=== PATIENT | male | born 1960 | race Caucasian/White ===

== ENCOUNTER 2016-09-19 12:07 | Emergency (ER) | payer OTHER ==
[2016-09-19 12:44] VITALS: BP 138/98; PULSE 88; TEMP 98; BMI 29.0
[2016-09-19] MEDS ORDERED: IBUPROFEN 600 MG TABLET (FP) PO ONE (13:44)
--- NOTE | 2016-09-19 14:58 | PDOC ---
History of Present Illness - General Chief Complaint: Injury Stated Complaint: FALL/ DIZZINESS Time Seen by Provider: 09/19/16 13:14 History Source: Patient Exam Limitations: No Limitations - History of Present Illness Initial Comments: 09/19/16 14:56 Patient was [place] when he stumbled and fell backwards striking his right flank on the door jam. Patient states since that time is had severe pain to his chest wall with pain on deep inspiration. No head injury, no other injury. Occurred: reports: this morning Severity: reports: moderate Pain Location: reports: chest Method of Injury: Yes: fall Loss of Consciousness: no loss of consciousness Associated Symptoms (Fall): denies symptoms Past History - Travel Traveled outside of the country in the last 30 days: No Close contact w/someone who was outside of country & ill: No - Past Medical History Allergies/Adverse Reactions: Allergies Allergy/AdvReac Type Severity Reaction Status Date / Time aspirin Allergy Verified 09/19/16 12:31 egg Allergy Verified 09/19/16 12:31 tomato Allergy Verified 09/19/16 12:31 Home Medications: Ambulatory Orders Oxycodone HCl/Acetaminophen [Percocet 5-325 mg Tablet -] 1 - 2 tab PO Q4H PRN # 15 tablet MDD 4 09/19/16 Other medical history: VISION PROBLEMS - Psycho/Social/Smoking Cessation Hx Anxiety: No Suicidal Ideation: No Smoking History: Never smoked Have you smoked in the past 12 months: No Information on smoking cessation initiated: No Hx Alcohol Use: No Drug/Substance Use Hx: No Substance Use Type: None Review of Systems - Review of Systems Able to Perform ROS?: Yes Is the patient limited Bengali proficient: Yes Constitutional: Yes: See HPI. No: Symptoms Reported, Fever HEENTM: Yes: See HPI. No: Symptoms Reported Respiratory: Yes: Symptoms reported, See HPI, Other (pleuritic type chest pain secondary to contusion and pain to his right chest wall, no shortness of breath) . No: Cough Musculoskeletal: Yes: Symptoms Reported, See HPI, Back Pain Integumentary: Yes: See HPI. No: Symptoms Reported All Other Systems: Reviewed and Negative *Physical Exam - Vital Signs Last Vital Signs Temp Pulse Resp BP Pulse Ox 98.0 F 88 18 138/98 100 09/19/16 12:33 09/19/16 12:33 09/19/16 12:33 09/19/16 12:33 09/19/16 12:33 - Physical Exam General Appearance: Yes: Nourished, Appropriately Dressed, Mild Distress, Moderate Distress HEENT: positive: CASH, Normal ENT Inspection, TMs Normal, Pharynx Normal Neck: positive: Supple Respiratory/Chest: positive: Lungs Clear (pain with deep inspiration, and reproduced tenderness along chest wall at mid clavicular line proximally midpoint ribs 789. Has no abdominal pain, no rebound or guarding to right upper quadrant), Normal Breath Sounds Musculoskeletal: positive: Normal Inspection. 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 Will treat with NSAIDs, given 15 Percocet prescription, and will have follow-up with PMD *DC/Admit/Observation/Transfer Diagnosis at time of Disposition: Fracture, rib Qualifiers: Encounter type: initial encounter Rib fracture type: single rib Fracture type: closed Laterality: right Qualified Code(s): S22.31XA - Fracture of one rib, right side, initial encounter for closed fracture - Discharge Dispostion Disposition: HOME Condition at time of disposition: Stable Admit: No - Patient Instructions Printed Discharge Instructions: DI for Rib Fracture Additional Instructions: Rest, avoid any heavy lifting or strenuous activity until pain resolves. May choose to sit upright for pain control Remembering to take deep breaths as often as possible to avoid any atelectasis and lungs from immobility May use ibuprofen 2 tablets every 6 hours as needed for pain control May use Percocet one or 2 tablets every 6 hours as needed for severe pain remembering will make dizzy and sleepy Follow-up with PMD in one week for reevaluation - Post Discharge Activity Work/School Note: Back to Work
== END 2016-09-19 15:38 | disposition home or self-care (01) ==
LOC: JERFT 12:07
DX: S22.31XA Fracture of one rib, right side, initial encounter for closed fracture (principal); W18.39XA Other fall on same level, initial encounter; Y93.89 Activity, other specified; Y92.240 Courthouse as the place of occurrence of the external cause
CPT/HCPCS: 71020-TC; 71101-TC-RT; 99281-25

== ENCOUNTER 2016-10-26 12:05 | Emergency (ER) | payer OTHER ==
[2016-10-26 12:19] VITALS: TEMP 97.7; BMI 28.1
[2016-10-26 15:07] LABS: BASOPHIL 0.6 % (0-2.0); EOSINOPHIL 3.5 % (0-4.5); MCH 31.2 pg (25.7-33.7); MCHC 34.7 g/dl (32.0-35.9); MEAN CELL VOLUME 89.8 fl (80-96); MEAN PLT VOLUME 8.4 fl (7.5-11.1); NEUTROPHILS 58.5 % (42.8-82.8); PLATELET COUNT 188 K/MM3 (134-434); RDW 11.9 % (11.9-15.9); WHITE BLOOD COUNT 5.3 K/mm3 (4.0-10.0)
[2016-10-26 15:28] LABS: ALBUMIN 3.5 g/dl (3.4-5.0); ALK PHOS 58 U/L (45-117); ANION GAP 10 (8-16); BILIRUBIN,TOTAL 0.6 mg/dL (0.2-1.0); CALCIUM 8.4 mg/dL (8.5-10.1); CO2 26 mmol/L (21-32); GLUCOSE,RANDOM 272 mg/dL (74-106); MAGNESIUM 2.2 mg/dL (1.8-2.4); SGOT/AST 14 U/L (15-37); SGPT/ALT 23 U/L (12-78); TOT PROT 6.5 g/dl (6.4-8.2)
--- NOTE | 2016-10-26 15:28 | PDOC ---
History of Present Illness - General Chief Complaint: Lightheaded Stated Complaint: SICK Time Seen by Provider: 10/26/16 12:42 History Source: Patient Exam Limitations: No Limitations - History of Present Illness Initial Comments: 10/26/16 15:46 55-year-old male who states has been having generalized weakness, increased insomnia, and intermittent headaches for the past few months without change in mentation, dizziness, visual changes, neck pain, chest pain, shortness of breath , abdominal pain, nausea, dysuria, or bowel complaints. She states has been seen in the past secondary to the above and had normal head CT. Patient states does not have a PCP and just recently received insurance. Patient denies medical history including anemia, but states has been mild short of breath with exertion and is generally weak without fever, chills hematochezia, hematuria or weight loss. Timing/Duration: constant Severity: mild Associated Symptoms: reports: headaches, weakness Past History - Past Medical History Allergies/Adverse Reactions: Allergies Allergy/AdvReac Type Severity Reaction Status Date / Time aspirin Allergy Verified 10/26/16 12:17 egg Allergy Verified 10/26/16 12:17 tomato Allergy Verified 10/26/16 12:17 Home Medications: Ambulatory Orders Oxycodone HCl/Acetaminophen [Percocet 5-325 mg Tablet -] 1 - 2 tab PO Q4H PRN # 15 tablet MDD 4 09/19/16 - Psycho/Social/Smoking Cessation Hx Anxiety: No Suicidal Ideation: No Smoking History: Never smoked Have you smoked in the past 12 months: No Information on smoking cessation initiated: No Hx Alcohol Use: No Drug/Substance Use Hx: No Substance Use Type: None Patient Lives Alone: No Lives with/in: spouse/SO Review of Systems - Review of Systems Able to Perform ROS?: Yes Constitutional: Yes: Weakness HEENTM: No: Symptoms Reported Respiratory: No: Symptoms reported Cardiac (ROS): Yes: Lightheadedness ABD/GI: No: Constipated, Diarrhea, Nausea, Poor Appetite, Poor Fluid Intake, Vomiting : No: Symptoms Reported Musculoskeletal: No: Symptoms Reported Integumentary: No: Symptoms Reported Neurological: Yes: Headache (mild occipital) Endocrine: No: Symptoms Reported Hematologic/Lymphatic: No: Symptoms Reported *Physical Exam - Vital Signs Last Vital Signs Temp Pulse Resp BP Pulse Ox 97.7 F 74 16 158/95 98 10/26/16 12:17 10/26/16 12:17 10/26/16 13:15 10/26/16 12:17 10/26/16 13:15 - Physical Exam General Appearance: Yes: Nourished, Appropriately Dressed. No: Apparent Distress HEENT: positive: EOMI, CASH, TMs Normal, Pharynx Normal (dry), Pale Conjunctivae Neck: positive: Normal Thyroid, Supple Respiratory/Chest: positive: Lungs Clear, Normal Breath Sounds. negative: Respiratory Distress, Accessory Muscle Use Cardiovascular: positive: Regular Rhythm, Regular Rate. negative: Murmur Gastrointestinal/Abdominal: positive: Soft. negative: Tenderness Musculoskeletal: negative: CVA Tenderness Extremity: positive: Normal Capillary Refill. negative: Pedal Edema Integumentary: positive: Dry, Warm, Pale Neurologic: positive: Normal Mood/Affect, Motor Strength 5/5 ( ambulatory) Heart Score/ECG Review - ECG Intrepretation Rhythm: Regular Rhythm (rate 69. Intervals are regular. No acute findings) ED Treatment Course - LABORATORY CBC & Chemistry Diagram: 10/26/16 14:27 10/26/16 14:53 - ADDITIONAL ORDERS Additional order review: 10/26/16 14:27 RBC 4.64 MCV 89.8 MCHC 34.7 RDW 11.9 MPV 8.4 Neutrophils % 58.5 Lymphocytes % 27.9 Monocytes % 9.5 Eosinophils % 3.5 Basophils % 0.6 - RADIOLOGY Radiology Studies Ordered: Category Date Time Status HEAD CT WITHOUT CONTRAST [CT] Stat CT Scan 10/26/16 14:25 Taken CHEST X-RAY PORTABLE* [RAD] Stat Radiology 10/26/16 14:25 Completed Medical Decision Making - Medical Decision Making 10/26/16 14:51 Patient with complaints of weakness, headache, and insomnia. Patient does state recent stressor of deaths in the family one month ago which she feels may have attributed to his symptoms. Patient does appear pale an exam concerning for anemia. Patient ordered for labs, head CT, urine, chest x-ray and EKG. 10/26/16 15:53 Laboratory Tests 10/26/16 10/26/16 14:27 14:53 WBC 5.3 Hgb 14.5 Hct 41.6 Plt Count 188 Sodium 138 Potassium 4.1 Chloride 102 Carbon Dioxide 26 Anion Gap 10 BUN 16 Creatinine 1.0 Random Glucose 272 H Calcium 8.4 L Magnesium 2.2 AST 14 L Troponin I < 0.02 urine pending. Chest x-ray negative. head CT negative 10/26/16 16:49 Laboratory Tests 10/26/16 16:20 Urine Protein 1+ H Urine Glucose (UA) 3+ H Urine Blood 2+ H Ur Leukocyte Esterase Negative patientstates feeling better after eating and will be discharged home to follow up with his primary care physician *DC/Admit/Observation/Transfer Diagnosis at time of Disposition: Weakness Insomnia Qualifiers: Insomnia type: unspecified Qualified Code(s): G47.00 - Insomnia, unspecified - Discharge Dispostion Disposition: HOME Condition at time of disposition: Good - Referrals Referrals: Kenyon Ramirez MD [Primary Care Provider] - - Patient Instructions Printed Discharge Instructions: DI for Muscle Weakness, DI for Insomnia Additional Instructions: Your labs, EKG, chest x-ray, head CT and urine were all negative. Please up with your PCP and eat well-balanced meals throughout the day.
[2016-10-26 15:30] LABS: TROPONIN I < 0.02 ng/ml (0.00-0.05)
--- NOTE | 2016-10-26 15:37 | EKG ---
Test Reason : Blood Pressure : / mmHG Vent. Rate : 069 BPM Atrial Rate : 069 BPM P-R Int : 144 ms QRS Dur : 076 ms QT Int : 364 ms P-R-T Axes : 017 -16 036 degrees QTc Int : 390 ms POOR DATA QUALITY, INTERPRETATION MAY BE ADVERSELY AFFECTED NORMAL SINUS RHYTHM POSSIBLE ANTERIOR INFARCT , AGE UNDETERMINED ABNORMAL ECG WHEN COMPARED WITH ECG OF 17-SEP-2008 13:08, NO SIGNIFICANT CHANGE WAS FOUND Confirmed by KALEB SPRING MD ([id number]) on 10/26/2016 3:37:05 PM Referred By: Confirmed By:KALEB SPRING MD
[2016-10-26 16:34] LABS: URINE APPEARANCE CLEAR; URINE BILIRUBIN NEGATIVE (NEGATIVE); URINE COLOR LTYELLOW; URINE GLUCOSE (UA) 3+ (NEGATIVE); URINE KETONE NEGATIVE (NEGATIVE); URINE LEUK ESTERASE NEGATIVE (NEGATIVE); URINE NITRITE NEGATIVE (NEGATIVE); URINE UROBILINOGEN NEGATIVE E.U./dl (0.2-1.0)
[2016-10-26 16:40] LABS: URINE BLOOD 2+ (NEGATIVE); URINE PROTEIN 1+ (NEGATIVE)
[2016-10-26 17:07] VITALS: BP 148/90; PULSE 84
[2016-10-26 17:14] LABS: URINE RBC <1 /hpf (0-3); URINE WBC <1 /hpf (3-5)
== END 2016-10-26 17:02 | disposition home or self-care (01) ==
LOC: JER 12:05
DX: R53.1 Weakness (principal); G47.00 Insomnia, unspecified
CPT/HCPCS: 36415; 70450-TC; 71010-TC; 80053; 81003; 81015; 82550; 83735; 84484; 85025; 93005; 93010; 99284-25

== ENCOUNTER 2016-11-15 05:57 | Day surgery (SDC) | payer OTHER ==
[2016-11-09 16:32] VITALS: BMI 27.2
[2016-11-15] MEDS: CYCLOPENTOLATE 2% OPHTH SOLN 2 ML BOTTLE ONE ×3 (06:55→07:05)
[2016-11-15] MEDS: PHENYLEPHRINE 2.5% OPHTH SOLN 15 ML BOTTLE ONE ×3 (06:55→07:05)
[2016-11-15] MEDS: TROPICAMIDE 1% OPHTH SOLN 15 ML BOTTLE ONE ×4 (06:55→07:10)
[2016-11-15] MEDS: CIPROFLOXACIN 0.3% EYE DROPS 5 ML BOTTLE ONE ×3 (06:55→07:05)
[2016-11-15 07:07] VITALS: TEMP 98.8
[2016-11-15] MEDS ORDERED: MIDAZOLAM HCL 2 MG/2 ML SINGLE DOSE VIAL ONE (07:12)
[2016-11-15] MEDS ORDERED: SUCCINYLCHOLINE CHLORIDE 200 MG/10 ML VIAL ONE (07:12)
[2016-11-15] MEDS ORDERED: ePHEDrine SULFATE 50 MG/1 ML AMPULE ONE (07:12)
[2016-11-15] MEDS ORDERED: PROPOFOL 20 ML ONE (07:13)
[2016-11-15] MEDS ORDERED: TETRACAINE 0.5% OPHTH SOLN 2 ML BOTTLE ONE (07:30)
[2016-11-15] MEDS ORDERED: LIDOCAINE 1% P/F 10 MG/ML VIAL ONE (07:30)
[2016-11-15] MEDS ORDERED: CARBACHOL 0.01% INTRA-OCULAR 1.5 ML VIAL ONE (07:31)
[2016-11-15] MEDS ORDERED: BSS (NA/CA/MG/K) BALANCED SALT SOLUTION OPHTH SOLN 15 ML BOTTLE ONE (07:31)
[2016-11-15] MEDS ORDERED: LIDOCAINE HCL 2% JELLY 10 ML CARTRIDGE ONE (07:31)
[2016-11-15 09:54] VITALS: BP 144/77; PULSE 78
--- NOTE | 2016-11-15 19:56 | OP ---
DATE OF PROCEDURE: 11/15/2016 OPERATIVE PROCEDURE: Lens Phacoemulsification with Posterior Chamber Intraocular Lens Placement Left Eye PREOPERATIVE DIAGNOSIS: Visually Significant Cataract of Left Eye POSTOPERATIVE DIAGNOSIS: Visually Significant Cataract of Left Eye SURGEON: Miguel Berry M.D. [place] [facility] [place]: PROCEDURE: The patient was brought to the operating room and placed under monitored anesthesia care by Anesthesia. A drop of Tetracaine was then placed over the left eye. The patient was then prepped and draped in the usual sterile manner. A speculum was then placed over the left eye. The eye was then well irrigated with copious amounts of BSS (balanced salt solution). The operating microscope was then moved into position. A paracentesis was performed using a 15 degree blade. At this point 0.5 mL of 1% preservative-free lidocaine was injected into the anterior chamber. Amvisc plus was then injected into the anterior chamber. A clear corneal incision was then formed using a 2.2 mm keratome. A capsulorrhexis was then performed in a continuous circular fashion beginning with a cystotome, completed with an Utratas forceps. Hydrodissection was then performed using BSS on a cannula. The phaco probe was then introduced through the corneal wound and the cataract was removed using the phaco chop technique. Approximately 3 seconds of absolute phaco time was used. The remaining cortex was then removed using irrigation and aspiration with an I/A probe. The capsule was then filled with regular Amvisc and the capsule was noted to be intact. A previously selected foldable posterior chamber intraocular lens was then injected into the capsule through the corneal wound using a lens injector. It was then dialed into position using a Sinskey hook. The Amvisc was then removed using irrigation and aspiration. Miostat was then injected through the paracentesis to constrict the pupil. The paracentesis and corneal wound were then hydrated and noted to be water tight. A drop of Maxitrol was then placed over the eye. The speculum was removed and clear shield was taped over the eye. The patient tolerated the procedure well and there were no surgical complications. The patient was asked to follow up in my office the next day. MIGUEL BERRY M.D. [id number]
== END 2016-11-15 09:50 | disposition home or self-care (01) ==
LOC: FASU 05:57
PROVIDERS: ATTEND Ophthalmology
PROC: 08RK3JZ Replacement of Left Lens with Synthetic Substitute, Percutaneous Approach (ICD-10-PCS; principal; 2016-11-15 08:15)
DX: H26.8 Other specified cataract (principal)

== ENCOUNTER 2016-12-13 06:38 | Day surgery (SDC) | payer OTHER ==
[2016-12-11 11:40] VITALS: BMI 27.2
[2016-12-13] MEDS: CIPROFLOXACIN 0.3% EYE DROPS 5 ML BOTTLE ONE ×3 (07:20→07:30)
[2016-12-13] MEDS: PHENYLEPHRINE 2.5% OPHTH SOLN 15 ML BOTTLE ONE ×3 (07:20→07:30)
[2016-12-13] MEDS: TROPICAMIDE 1% OPHTH SOLN 15 ML BOTTLE ONE ×3 (07:20→07:30)
[2016-12-13] MEDS: CYCLOPENTOLATE 2% OPHTH SOLN 2 ML BOTTLE ONE ×3 (07:20→07:30)
[2016-12-13] MEDS ORDERED: BSS (NA/CA/MG/K) BALANCED SALT SOLUTION OPHTH SOLN 15 ML BOTTLE ONE (07:30)
[2016-12-13] MEDS ORDERED: CARBACHOL 0.01% INTRA-OCULAR 1.5 ML VIAL ONE (07:30)
[2016-12-13] MEDS ORDERED: NEO/POLYMYX B SULF/DEXAMETH OPHTHALMIC 5ML BOTTLE ONE (07:30)
[2016-12-13] MEDS ORDERED: ACETAMINOPHEN 325 MG TABLET (FP) PO PRN (08:51)
[2016-12-13] MEDS ORDERED: MIDAZOLAM HCL 2 MG/2 ML SINGLE DOSE VIAL ONE (09:03)
[2016-12-13] MEDS ORDERED: oxyCODONE HCL 5 MG TABLET PO PRN (09:21)
[2016-12-13] MEDS ORDERED: ACETAMINOPHEN 325 MG TABLET (FP) ONE (09:41)
[2016-12-13 10:22] VITALS: TEMP 98.9
[2016-12-13 10:27] VITALS: BP 131/86; PULSE 78
--- NOTE | 2016-12-13 14:31 | OP ---
DATE OF OPERATION: 12/13/2016 OPERATIVE PROCEDURE: Lens Phacoemulsification with Posterior Chamber Intraocular Lens Placement, Right Eye PREOPERATIVE DIAGNOSIS: Visually Significant Cataract of Right Eye POSTOPERATIVE DIAGNOSIS: Visually Significant Cataract of Right Eye SURGEON: Miguel Berry M.D. ANESTHESIA: [facility] ANESTHESIOLOGIST: PROCEDURE: The patient was brought to the operating room and placed under monitored anesthesia care by Anesthesia. A drop of Tetracaine was then placed over the right eye. The patient was then prepped and draped in the usual sterile manner. A speculum was then placed over the right eye. The eye was then well irrigated with copious amounts of BSS (balanced salt solution). The operating microscope was then moved into position. A paracentesis was performed using a 15 degree blade. At this point 0.5 mL of 1% preservative free-lidocaine was injected into the anterior chamber. Amvisc plus was then injected into the anterior chamber. A clear corneal incision was then formed using a 2.2 mm keratome. A capsulorrhexis was then performed in a continuous circular fashion beginning with a cystotome completed with an Utratas forceps. Hydrodissection was then performed using BSS on a cannula. The phaco probe was then introduced through the corneal wound and the cataract was removed using the phaco chop technique. Approximately 3 seconds of absolute phaco time was used. The remaining cortex was then removed using irrigation and aspiration with an I/A probe. The capsule was then filled with regular Amvisc and the capsule was noted to be intact. A previously selected foldable posterior chamber intraocular lens was then injected into the capsule through the corneal wound using a lens injector. It was then dialed into position using a Sinskey hook. The Amvisc was then removed using irrigation and aspiration. Miostat was then injected through the paracentesis to constrict the pupil. The paracentesis and corneal wound were then hydrated and noted to be water tight. A drop of Maxitrol was then placed over the eye. The speculum was removed and clear shield was taped over the eye. The patient tolerated the procedure well and there were no surgical complications. The patient was asked to follow up in my office the next day. MIGUEL BERRY M.D. [id number]
== END 2016-12-13 10:20 | disposition home or self-care (01) ==
LOC: FASU 06:38
PROVIDERS: ATTEND Ophthalmology
PROC: 08RJ3JZ Replacement of Right Lens with Synthetic Substitute, Percutaneous Approach (ICD-10-PCS; principal; 2016-12-13 09:07)
DX: H26.8 Other specified cataract (principal)

== ENCOUNTER 2017-02-10 15:26 | Emergency (ER) | payer OTHER ==
[2017-02-10 16:08] VITALS: BP 155/86; PULSE 84; TEMP 98.2; BMI 25.3
--- NOTE | 2017-02-10 16:20 | PDOC ---
History of Present Illness - General History Source: Patient Exam Limitations: No Limitations <Debbi Aguilar - Last Filed: 02/10/17 20:30> - General History Source: Patient Exam Limitations: No Limitations - History of Present Illness Initial Comments: 02/10/17 16:47 Patient is a 56 year old male with a significant past medical history of DM and hypertension who presents to the ED s/p fall. Patient states that he was shopping in [place] as he slipped on water and fell backwards. Patient states that he hit the back of his head on the ground, denies any LOC. Patient states that he was unable to get up so he remained on the ground. Patient reports back pain , 8/10, radiating from top of the back to the buttocks. Patient also reports nausea and dizziness but denies any numbness or tingling. Patient notes that he had eye surgery 3 years ago and is now concerned because he hit his head during the fall. He denies fever, headache, chills, vomiting, diarrhea or constipation. SH: denies alcohol, drug or cigarette use. PCP - Dr. Ramirez <Stella Srivastava - Last Filed: 02/10/17 20:31> - General Chief Complaint: Head/Neck problem Stated Complaint: S/P FALL Time Seen by Provider: 02/10/17 16:19 Past History - Past Medical History Anemia: No Asthma: No Cancer: No Cardiac Disorders: No CVA: No COPD: No CHF: No Dementia: No Diabetes: Yes (NEW DX-STARTED ON GLUCOPHAGE RECENTLY) GI Disorders: No Disorders: No HTN: Yes Hypercholesterolemia: No Liver Disease: No Seizures: No Thyroid Disease: No - Surgical History Abdominal Surgery: No Appendectomy: No Cardiac Surgery: No Cholecystectomy: No Lung Surgery: No Neurologic Surgery: No Orthopedic Surgery: No - Psycho/Social/Smoking Cessation Hx Anxiety: No Suicidal Ideation: No Smoking History: Unknown if ever smoked Have you smoked in the past 12 months: No Information on smoking cessation initiated: No Hx Alcohol Use: No Drug/Substance Use Hx: No Substance Use Type: None Hx Substance Use Treatment: No <Debbi Aguilar - Last Filed: 02/10/17 20:30> <Stella Srivastava - Last Filed: 02/10/17 20:31> - Past Medical History Allergies/Adverse Reactions: Allergies Allergy/AdvReac Type Severity Reaction Status Date / Time aspirin Allergy Severe Abdominal Verified 02/10/17 16:36 pain egg Allergy Severe Violently Verified 02/10/17 16:36 ill, vomiting tomato Allergy Severe Violently Verified 02/10/17 16:36 ill, vomiting Home Medications: Ambulatory Orders Latanoprost 0.005% Eye Drops [Xalatan 0.005% Eye Drops -] 1 drop HS 11/09/16 Metformin HCl 500 mg PO BID 11/09/16 Ramipril 2.5 mg PO DAILY 11/09/16 Cholecalciferol (Vitamin D3) [Vitamin D3] 2,000 unit PO 2 daily tablet Ibuprofen [Motrin -] 600 mg PO TID PRN #21 tablet 02/10/17 Lidocaine 5% Patch [Lidoderm Patch -] 1 patch TP DAILY PRN #30 patch 02/10/17 Methocarbamol [Robaxin -] 500 mg PO TID PRN #21 tablet 02/10/17 Review of Systems - Review of Systems Able to Perform ROS?: Yes Comments:: 02/10/17 16:48 GENERAL/CONSTITUTIONAL: No: fever, chills, weakness, loss of appetite. HEAD, EYES, EARS, NOSE AND THROAT: No: change in vision, ear pain, discharge, sore throat, throat swelling. CARDIOVASCULAR: No: chest pain, lightheadedness, palpitations, syncope RESPIRATORY: No: cough, shortness of breath, wheezing, hemoptysis, stridor. GASTROINTESTINAL: + nausea No: vomiting, abdominal cramping, diarrhea, rectal bleeding, constipation. GENITOURINARY: No: dysuria, hematuria, frequency, urgency, flank pain. MUSCULOSKELETAL: +back pain, neck pain. No: joint pain, muscle swelling or pain SKIN: No: lesions, pallor, rash or easy bruising. NEUROLOGIC: +dizziness. No: headache, vertigo, paresthesias, weakness ENDOCRINE: No: unexplained weight gain or loss HEMATOLOGIC/LYMPHATIC: No: anemia, easy bleeding, swelling nodes <Stella Srivastava - Last Filed: 02/10/17 20:31> *Physical Exam - Vital Signs Last Vital Signs Temp Pulse Resp BP Pulse Ox 98.2 F 84 20 155/86 100 02/10/17 15:41 02/10/17 15:41 02/10/17 15:41 02/10/17 15:41 02/10/17 15:41 <Debbi Aguilar - Last Filed: 02/10/17 20:30> - Vital Signs Last Vital Signs Temp Pulse Resp BP Pulse Ox 98.2 F 84 20 155/86 100 02/10/17 15:41 02/10/17 15:41 02/10/17 15:41 02/10/17 15:41 02/10/17 15:41 - Physical Exam Comments: 02/10/17 16:49 GENERAL: The patient is in no acute distress. HEAD: Normal with no signs of trauma. EYES: PERRLA, EOMI, sclera anicteric, conjunctiva clear. ENT: Ears normal, nares patent, oropharynx clear without exudates. Moist mucous membranes. NECK: Normal range of motion, supple without lymphadenopathy, JVD, or masses. LUNGS: Breath sounds equal, clear to auscultation bilaterally. No wheezes, and no crackles. HEART:Regular rate and rhythm, normal S1 and S2 without murmur, rub or gallop. ABDOMEN: Soft, nontender, normoactive bowel sounds. No guarding, no rebound. EXTREMITIES: Normal range of motion, no edema. No clubbing or cyanosis. No erythema, or tenderness. NEUROLOGICAL: (+) R paraspinal tenderness in C spine, no midline tenderness, (+ ) midline thoracic lumbar tenderness, no bruising or deformities, (+) motos strength 5/5 bilateral upper and lower extremities, (+)sensation intact throughout. Cranial nerves II through XII grossly intact. Normal speech. No focal neurological deficits. MUSCULOSKELETAL: no CVA tenderness SKIN: Warm, Dry, normal turgor, no rashes or lesions noted. <Stella Srivastava - Last Filed: 02/10/17 20:31> ED Treatment Course - RADIOLOGY Radiology Studies Ordered: 02/10/17 20:28 THIS IS A PRELIMINARY REPORT FROM [facility] EXAM: CT head without contrast FINDINGS: 1. There is no evidence of an acute intracranial process intracranial hemorrhage or mass effect. 2. The ventricles are normal size. 3. The visualized portions of the orbits, paranasal and mastoid sinuses are unremarkable. 4. No evidence of fracture. THIS DOCUMENT HAS BEEN ELECTRONICALLY SIGNED Berenice Jimenes MD 02/10/17 20:30 THIS IS A PRELIMINARY REPORT FROM [facility] FINDINGS: 1. No evidence of fracture or subluxation of the cervical spine. 2. Visualization of detail of the contents of the cervical canal is limited by artifact. THIS DOCUMENT HAS BEEN ELECTRONICALLY SIGNED Berenice Jimenes MD - Medications Given in the ED: ED Medications Discontinued Medications Generic Name Dose Route Start Last Admin Trade Name Lexa PRN Reason Stop Dose Admin Ibuprofen 600 mg 02/10/17 16:27 02/10/17 16:43 Motrin - PO 02/10/17 16:28 600 mg ONCE ONE Administration Methocarbamol 500 mg 02/10/17 16:27 02/10/17 16:44 Robaxin - PO 02/10/17 16:28 500 mg ONCE ONE Administration Oxycodone/Acetaminophen 1 combo 02/10/17 16:27 02/10/17 16:43 Percocet 5/325 - PO 02/10/17 16:28 1 combo ONCE ONE Administration <Stella Srivastava - Last Filed: 02/10/17 20:31> Medical Decision Making - Medical Decision Making 02/10/17 16:20 I, Dr. Debbi Aguilar, attest that this document has been prepared under my direction and personally reviewed by me in its entirety. I further attest, that it accurately reflects all work, treatment, procedures and medical decision -making performed by me. 02/10/17 16:28 This is a 56 yo M with a history of DM, HTN Presents to the ER with a complaint of back and neck pain PT state that there was water on the ground at [facility] He accidentally slipped and fell backwards on the concrete, striking his head No LOC, NO amnesia No preceding chest pain, palpitations, focal weakness or numbness Currently pain is 8/10, radiating down the spine Pt stayed on the ground until help arrived Cervical immobilization as pt complained of back/neck pain No numbness tingling or weakness in the extremities On examination: EOMI, PERRLA No midline tenderness to palpation Right neck tender into shoulder Pt is able to flex and hip, knees, ankles Moves upper extremities with 5/5 strength bilaterally RRR Lungs clear bilaterally Hip stable PT is ambulatory with no assistance Will do: Head CT Cervical Spine CT Xrays thoracic and lumbar Will give motrin (pt states he is not allergic to this), Percocet and robaxin Will re assess 02/10/17 16:35 02/10/17 19:00 No evidence of fracture on either thoracic or lumbar x rays Awaiting CT reads 02/10/17 20:22 Two calls made to Imaging contestant coordinator as this patient's images STILL have not been read We still await preliminary results Pt informed He is concerned because he has a mentally ill at home <Debbi Aguilar - Last Filed: 02/10/17 20:30> *DC/Admit/Observation/Transfer - Discharge Dispostion Admit: No <Debbi Aguilar - Last Filed: 02/10/17 20:30> - Attestations Scribe Attestion: 02/10/17 16:53 Documentation prepared by AMILCAR Kim, acting as medical services manager for Debbi Aguilar MD. <Stella Srivastaav - Last Filed: 02/10/17 20:31> Diagnosis at time of Disposition: Fall Qualifiers: Encounter type: initial encounter Qualified Code(s): W19.XXXA - Unspecified fall, initial encounter Head trauma Qualifiers: Encounter type: initial encounter Qualified Code(s): S09.90XA - Unspecified injury of head, initial encounter - Prescriptions Prescriptions: Lidocaine 5% Patch [Lidoderm Patch -] 1 patch TP DAILY PRN #30 patch PRN Reason: Pain Ibuprofen [Motrin -] 600 mg PO TID PRN #21 tablet PRN Reason: Pain Methocarbamol [Robaxin -] 500 mg PO TID PRN #21 tablet PRN Reason: Pain - Referrals Referrals: Kenyon Ramirez MD [Primary Care Provider] - - Patient Instructions Printed Discharge Instructions: DI for Closed Head Injury, DI for Postconcussion Syndrome, DI for Concussion Additional Instructions: Thank you for coming in to the ER today please take medications as prescribed Please follow up with Dr Ramirez Return to the ER for any other concerns or complaints - Post Discharge Activity Work/School Note: Back to Work
[2017-02-10] MEDS ORDERED: METHOCARBAMOL 500 MG TABLET PO ONE (16:27)
[2017-02-10] MEDS ORDERED: IBUPROFEN 600 MG TABLET (FP) PO ONE ×2 (16:27→16:40)
[2017-02-10] MEDS ORDERED: OXYCODONE/APAP 5/325MG COMBO TABLET PO ONE (16:27)
[2017-02-10] MEDS ORDERED: OXYCODONE/APAP 5/325MG COMBO TABLET ONE (16:39)
[2017-02-10] MEDS ORDERED: METHOCARBAMOL 500 MG TABLET ONE (16:40)
== END 2017-02-10 21:02 | disposition home or self-care (01) ==
LOC: JER 15:26
DX: S09.8XXA Other specified injuries of head, initial encounter (principal); W01.0XXA Fall on same level from slipping, tripping and stumbling without subsequent striking against object, initial encounter; Y93.89 Activity, other specified; Y92.59 Other trade areas as the place of occurrence of the external cause; Y99.8 Other external cause status; I10 Essential (primary) hypertension; E11.9 Type 2 diabetes mellitus without complications; Z79.84 Long term (current) use of oral hypoglycemic drugs
CPT/HCPCS: 70450-TC; 72070-TC; 72100-TC; 72125-TC; 99282-25

== ENCOUNTER 2019-05-26 09:22 | Emergency (ER) | payer OTHER ==
[2019-05-26 09:51] VITALS: BP 169/95; PULSE 98; TEMP 99.1; BMI 29.1
[2019-05-26] MEDS ORDERED: ACETAMINOPHEN 500 MG TABLET (FP) PO ONE (10:15)
[2019-05-26] MEDS ORDERED: ACETAMINOPHEN 500 MG TABLET (FP) ONE (10:19)
--- NOTE | 2019-05-26 10:22 | PDOC ---
History of Present Illness - General Chief Complaint: Pain, Acute Stated Complaint: RT KNEE INJURY Time Seen by Provider: 05/26/19 10:08 History Source: Patient Exam Limitations: No Limitations - History of Present Illness Initial Comments: 05/26/19 10:17 58 year old male with a history of glaucoma presents with right leg pain since Sunday. Patient reports no injuries or fall, states pain started and is not better since then. Denies numbness or tingling in toes Occurred: reports: last week Severity: Yes: mild Lower Extremity Pain Location: right: leg Method of Injury: Yes: unknown Modifying Factors: improves with: immobilization Lower Ext. Injury Location - Specific Injury Location Hips: bilateral hip: no evidence of injury Legs: right: joint effusion, pain Knees: bilateral no evidence of injury Ankle: bilateral no evidence of injury Foot: bilateral foot no evidence of injury Extremity Pain Location - Extremity Pain Location Extremity Pain Locations: right: leg Past History - Travel Traveled outside of the country in the last 30 days: No Close contact w/someone who was outside of country & ill: No - Past Medical History Allergies/Adverse Reactions: Allergies Allergy/AdvReac Type Severity Reaction Status Date / Time aspirin Allergy Severe Abdominal Verified 02/10/17 16:36 pain egg Allergy Severe Violently Verified 02/10/17 16:36 ill, vomiting tomato Allergy Severe Violently Verified 02/10/17 16:36 ill, vomiting Home Medications: Ambulatory Orders Latanoprost 0.005% Eye Drops [Xalatan 0.005% Eye Drops -] 1 drop HS 11/09/16 Ramipril 2.5 mg PO DAILY 11/09/16 metFORMIN HCL [Metformin HCl] 500 mg PO BID 11/09/16 Cholecalciferol (Vitamin D3) [Vitamin D3] 2,000 unit PO 2 daily tablet Ibuprofen [Motrin -] 600 mg PO TID PRN #21 tablet 02/10/17 Lidocaine 5% Patch [Lidoderm Patch -] 1 patch TP DAILY PRN #30 patch 02/10/17 Methocarbamol [Robaxin -] 500 mg PO TID PRN #21 tablet 02/10/17 Acetaminophen 1,000 mg PO Q4HWA #20 liquid 05/26/19 Anemia: No Asthma: No Cancer: No Cardiac Disorders: No CVA: No COPD: No CHF: No Dementia: No Diabetes: Yes (NEW DX-STARTED ON GLUCOPHAGE RECENTLY) GI Disorders: No Disorders: No HTN: Yes Hypercholesterolemia: No Liver Disease: No Seizures: No Thyroid Disease: No - Surgical History Abdominal Surgery: No Appendectomy: No Cardiac Surgery: No Cholecystectomy: No Lung Surgery: No Neurologic Surgery: No Orthopedic Surgery: No - Psycho Social/Smoking Cessation Hx Smoking History: Never smoked Have you smoked in the past 12 months: No Information on smoking cessation initiated: No Hx Alcohol Use: No Drug/Substance Use Hx: No Substance Use Type: None Hx Substance Use Treatment: No Review of Systems - Review of Systems Able to Perform ROS?: Yes Is the patient limited Mexican proficient: No Constitutional: No: Chills, Fever HEENTM: No: Ear Discharge, Nose Pain, Nose Congestion, Throat Pain Respiratory: No: Orthopnea, Wheezing Cardiac (ROS): No: Chest Pain, Lightheadedness ABD/GI: No: Constipated, Poor Appetite, Indigestion : No: Dysuria, Lesions Musculoskeletal: No: Gout, Joint Pain, Muscle Weakness Neurological: No: Headache, Numbness *Physical Exam - Vital Signs Last Vital Signs Temp Pulse Resp BP Pulse Ox 99.1 F 98 H 18 169/95 98 05/26/19 09:47 05/26/19 09:47 05/26/19 09:47 05/26/19 09:47 05/26/19 09:47 - Physical Exam General Appearance: Yes: Nourished HEENT: positive: CASH, TMs Normal, Pharynx Normal Neck: positive: Supple. negative: Lymphadenopathy (R), Lymphadenopathy (L) Respiratory/Chest: positive: Lungs Clear Cardiovascular: positive: Regular Rhythm, Regular Rate Extremity: positive: Normal Capillary Refill, Other (+ erythema to stinson, +2 pitting edema ) Neurologic: positive: Fully Oriented, Alert ED Treatment Course - RADIOLOGY Radiology Studies Ordered: Category Date Time Status LEG TIB/FIB-RIGHT [RAD] Stat Radiology 05/26/19 10:14 Ordered DUPLEX VASCUL US-1 LEG [US] Stat Ultrasound 05/26/19 10:14 Ordered Medical Decision Making - Medical Decision Making 05/26/19 10:26 58 year old male with a history of glaucoma presents with right leg pain since Sunday. Patient reports no injuries or fall, states pain started and is not better since then. right leg pain -xray tib/fib -doppler 05/26/19 11:37 negative xray negative u/s of leg patient able to bear weight will d/c with analgesia and pmd follow up ortho number given for further evaluation as needed Discharge - Discharge Information Problems reviewed: Yes Clinical Impression/Diagnosis: Leg pain, right Condition: Good Disposition: HOME - Admission No - Additional Discharge Information Prescriptions: Acetaminophen 1,000 mg PO Q4HWA #20 liquid - Follow up/Referral Referrals: Bora Guillermo MD [Staff Physician] - 7 days - Patient Discharge Instructions Patient Printed Discharge Instructions: DI for Leg Pain Additional Instructions: Activity as tolerated Take medication for pain as directed Call ortho in 1 week if not better for further evaluation. Elevate leg at rest Call primary physician for follow up appointment - Post Discharge Activity Work/Back to School Note: Back to Work
== END 2019-05-26 11:51 | disposition home or self-care (01) ==
LOC: JERFT 09:22
DX: M25.561 Pain in right knee (principal); I10 Essential (primary) hypertension; E11.9 Type 2 diabetes mellitus without complications; Z79.84 Long term (current) use of oral hypoglycemic drugs; Z88.6 Allergy status to analgesic agent; Z91.018 Allergy to other foods
CPT/HCPCS: 73590-TC-RT-FY; 93971-TC; 99281-25

== ENCOUNTER 2019-10-28 13:40 | Inpatient (IN) | payer OTHER ==
--- NOTE | 2019-10-28 13:50 | PDOC ---
Rapid Medical Evaluation Time Seen by Provider: 10/28/19 13:42 Medical Evaluation: Allergies Allergy/AdvReac Type Severity Reaction Status Date / Time aspirin Allergy Severe Abdominal Verified 02/10/17 16:36 pain egg Allergy Severe Violently Verified 02/10/17 16:36 ill, vomiting tomato Allergy Severe Violently Verified 02/10/17 16:36 ill, vomiting 10/28/19 13:47 CC: sent by PMD for edema and decreased exercise tolerance PE: No chest tenderness. BLE edema->mid thigh. Lungs CTAB. Orders: CHF w/u Patient will proceed to ED for further evaluation. Discharge Disposition - Diagnosis Edema - Referrals - Patient Instructions - Post Discharge Activity
[2019-10-28 14:44] LABS: EPI CELLS 1.7 /HPF (0-5/HPF); HYALINE CASTS 4 /lpf (0-8); PH,URINE 5.5 (5.0-8.0); URINE APPEARANCE CLOUDY; URINE BACTERIA 86.4 /hpf (NEGATIVE); URINE BILIRUBIN NEGATIVE (NEGATIVE); URINE COLOR YELLOW; URINE GLUCOSE (UA) TRACE (NEGATIVE); URINE KETONE NEGATIVE (NEGATIVE); URINE LEUK ESTERASE 2+ (NEGATIVE); URINE NITRITE NEGATIVE (NEGATIVE); URINE PROTEIN 4+ (NEGATIVE); URINE RBC 11 /hpf (0-4); URINE WBC 38 /hpf (0-5)
[2019-10-28 14:56] LABS: EOS % 1.2 % (0-4.5); HEMATOCRIT 37.9 % (35.4-49); HEMOGLOBIN 12.3 GM/dL (11.7-16.9); LYMPH % 18.9 % (8-40); MCH 29.1 pg (25.7-33.7); MCHC 32.4 g/dl (32.0-35.9); MEAN CELL VOLUME 89.9 fl (80-96); MEAN PLT VOLUME 9.1 fl (7.5-11.1); MONO % 8.6 % (3.8-10.2); NEUT % 70.3 % (42.8-82.8); PLATELET COUNT 245 K/MM3 (134-434); RBC 4.21 M/mm3 (4.00-5.60); RDW 14.7 % (11.9-15.9); WHITE BLOOD COUNT 8.2 K/mm3 (4.0-10.0)
[2019-10-28 15:21] LABS: N-TERMINAL BNP 25380.4 pg/ml (5-125)
[2019-10-28 15:22] LABS: ALBUMIN 3.1 g/dl (3.4-5.0); BILIRUBIN,TOTAL 0.7 mg/dL (0.2-1); BLOOD UREA NITROGEN 21.6 mg/dL (7-18); CALCIUM 8.3 mg/dL (8.5-10.1); CREATININE 1.7 mg/dL (0.55-1.3); MAGNESIUM 1.7 mg/dL (1.8-2.4); POTASSIUM 4.2 mmol/L (3.5-5.1); TOT PROT 6.4 g/dl (6.4-8.2)
--- NOTE | 2019-10-28 15:35 | PDOC ---
History of Present Illness - General Chief Complaint: Congestive Heart Failure Stated Complaint: SENT BY DOC Time Seen by Provider: 10/28/19 13:42 - History of Present Illness Initial Comments: Tushar Vasquez is a 58 y/o male with reported pmh significant for HTN, DM ( has not taken any medications for the past 6 months), presenting today with 2 weeks of worsening SOB, ROBLES, BLE swelling, and scrotal pain. Reports that he went to see his urologist for his scrotal pain, and was told that the lower extremity edema was contributing to this pain. Scrotal pain is relieved with Tylenol. No chest pain. No abd pain. No headache/dizziness. No dysuria or hematuria. Pt has not had these symptoms before. Past History - Past Medical History Allergies/Adverse Reactions: Allergies Allergy/AdvReac Type Severity Reaction Status Date / Time aspirin Allergy Severe Abdominal Verified 10/28/19 13:48 pain egg Allergy Severe Violently Verified 10/28/19 13:48 ill, vomiting tomato Allergy Severe Violently Verified 10/28/19 13:48 ill, vomiting Home Medications: Ambulatory Orders Latanoprost 0.005% Eye Drops [Xalatan 0.005% Eye Drops -] 1 drop HS 11/09/16 Ramipril 2.5 mg PO DAILY 11/09/16 metFORMIN HCL [Metformin HCl] 500 mg PO BID 11/09/16 Cholecalciferol (Vitamin D3) [Vitamin D3] 2,000 unit PO 2 daily tablet Ibuprofen [Motrin -] 600 mg PO TID PRN #21 tablet 02/10/17 Lidocaine 5% Patch [Lidoderm Patch -] 1 patch TP DAILY PRN #30 patch 02/10/17 Methocarbamol [Robaxin -] 500 mg PO TID PRN #21 tablet 02/10/17 Acetaminophen 1,000 mg PO Q4HWA #20 liquid 05/26/19 Anemia: No Asthma: No Cancer: No Cardiac Disorders: No CVA: No COPD: No CHF: No Dementia: No Diabetes: Yes (NEW DX-STARTED ON GLUCOPHAGE RECENTLY) GI Disorders: No Disorders: No HTN: Yes Hypercholesterolemia: No Liver Disease: No Seizures: No Thyroid Disease: No - Surgical History Abdominal Surgery: No Appendectomy: No Cardiac Surgery: No Cholecystectomy: No Lung Surgery: No Neurologic Surgery: No Orthopedic Surgery: No - Psycho Social/Smoking Cessation Hx Smoking History: Never smoked Have you smoked in the past 12 months: No Hx Alcohol Use: No Drug/Substance Use Hx: No Substance Use Type: None Hx Substance Use Treatment: No Cardiac Specific PMH - Complaint Specific PMHX Pacemaker: No Review of Systems - Review of Systems Comments:: GENERAL/CONSTITUTIONAL: No fever or chills. No weakness._ HEAD, EYES, EARS, NOSE AND THROAT: No change in vision. No change in hearing. No sore throat._ CARDIOVASCULAR: No chest pain. Reports shortness of breath. RESPIRATORY: Denies cough, hemoptysis_ GASTROINTESTINAL: No nausea, vomiting, diarrhea or constipation._ GENITOURINARY: No dysuria, frequency, or change in urination._ MUSCULOSKELETAL: Reports bilateral lower extremity swelling. No neck or back pain._ SKIN: No rash_ : Reports scrotal discomfort. NEUROLOGIC: No headache, vertigo, loss of consciousness, or change in strength/ sensation._ ENDOCRINE: No increased thirst. No abnormal weight change_ HEMATOLOGIC/LYMPHATIC: No anemia, easy bleeding, or history of blood clots._ ALLERGIC/IMMUNOLOGIC: No hives or skin allergy._ *Physical Exam - Vital Signs Last Vital Signs Temp Pulse Resp BP Pulse Ox 98.7 F 37 L 20 122/50 L 93 L 10/28/19 16:57 10/28/19 16:57 10/28/19 16:57 10/28/19 16:57 10/28/19 13:46 - Physical Exam GENERAL: Awake, alert, and oriented to person/place/time, in no acute distress_ HEAD: No signs of trauma, normocephalic, atraumatic _ EYES: PERRLA, EOMI, sclera anicteric, conjunctiva clear_ ENT: Hearing grossly normal, nares patent, oropharynx clear without exudates. No uvular deviation. Moist mucosa_ NECK: Normal ROM, supple, no lymphadenopathy, JVD, or masses_ LUNGS: No distress, speaks in full sentences, minimal bibasilar crackles HEART: Regular rate and rhythm, normal S1 and S2, no murmurs appreciated, peripheral pulses normal and equal bilaterally._ ABDOMEN: Soft, nontender, normoactive bowel sounds. No guarding, no rebound. No masses_ : External exam shows normal appearing penis without lesions or rash. No scrotal tenderness bilaterally. Mild erythema over anterior aspect of scrotum and sensitivity to touch, but no other color changes. EXTREMITIES: Normal inspection, Normal range of motion. 2+ bilateral lower extremity edema. No clubbing or cyanosis_ NEUROLOGICAL: Cranial nerves II through XII grossly intact. Normal speech, normal gait, no focal sensorimotor deficits _ SKIN: Warm, Dry, normal turgor, no rashes or lesions noted_ ED Treatment Course - LABORATORY CBC & Chemistry Diagram: 10/28/19 14:26 10/28/19 14:26 - ADDITIONAL ORDERS Additional order review: Laboratory Results 10/28/19 10/28/19 10/28/19 14:30 14:26 14:26 Sodium 141 Potassium 4.2 Chloride 110 H Carbon Dioxide 21 Anion Gap 10 BUN 21.6 H Creatinine 1.7 H Est GFR (CKD-EPI)AfAm 49.70 Est GFR (CKD-EPI)NonAf 42.88 Random Glucose 172 H Calcium 8.3 L Magnesium 1.7 L Total Bilirubin 0.7 AST 29 ALT 29 Alkaline Phosphatase 105 Creatine Kinase 204 Creatine Kinase Index 11.1 H CK-MB (CK-2) 22.7 H Troponin I 0.18 H B-Natriuretic Peptide 27792.4 H Total Protein 6.4 Albumin 3.1 L TSH 3.50 D Urine Color Yellow Urine Appearance Cloudy Urine pH 5.5 Ur Specific [place] 1.015 Urine Protein 4+ H Urine Glucose (UA) Trace Urine Ketones Negative Urine Blood 2+ H Urine Nitrite Negative Urine Bilirubin Negative Urine Urobilinogen 1.0 Ur Leukocyte Esterase 2+ H Urine WBC (Auto) 38 Urine RBC (Auto) 11 Urine Casts (Auto) 4 U Epithel Cells (Auto) 1.7 Urine Bacteria (Auto) 86.4 10/28/19 14:26 RBC 4.21 MCV 89.9 MCHC 32.4 RDW 14.7 D MPV 9.1 Neutrophils % 70.3 D Lymphocytes % 18.9 D Monocytes % 8.6 Eosinophils % 1.2 Basophils % 1.0 Medical Decision Making - Medical Decision Making 10/28/19 15:35 EKG shows sinus tachycardia with PVCs, 105 bpm, LAFB, QTc 459, no ST elevation. 10/28/19 15:36 58M hx of HTN, DM, not on any medications, presenting with SOB, ROBLES, BLE edema, worsening over the past two weeks. -cbc, cmp, bnp -ekg, trop, cxr -ua -mg -coags 10/28/19 16:05 CXR negative for intra thoracic pathology. 10/28/19 16:13 Labs reviewed. Pt started on Bactrim. Pt started on lasix 40 IV Laboratory Last Values WBC 8.2 K/mm3 (4.0-10.0) 10/28/19 14:26 RBC 4.21 M/mm3 (4.00-5.60) 10/28/19 14:26 Hgb 12.3 GM/dL (11.7-16.9) 10/28/19 14:26 Hct 37.9 % (35.4-49) 10/28/19 14:26 MCV 89.9 fl (80-96) 10/28/19 14:26 MCH 29.1 pg (25.7-33.7) 10/28/19 14:26 MCHC 32.4 g/dl (32.0-35.9) 10/28/19 14:26 RDW 14.7 % (11.9-15.9) D 10/28/19 14:26 Plt Count 245 K/MM3 (134-434) D 10/28/19 14:26 MPV 9.1 fl (7.5-11.1) 10/28/19 14:26 Absolute Neuts (auto) 5.8 K/mm3 (1.5-8.0) 10/28/19 14:26 Neutrophils % 70.3 % (42.8-82.8) D 10/28/19 14:26 Lymphocytes % 18.9 % (8-40) D 10/28/19 14:26 Monocytes % 8.6 % (3.8-10.2) 10/28/19 14:26 Eosinophils % 1.2 % (0-4.5) 10/28/19 14:26 Basophils % 1.0 % (0-2.0) 10/28/19 14:26 Nucleated RBC % 0 % (0-0) 10/28/19 14:26 Sodium 141 mmol/L (136-145) 10/28/19 14:26 Potassium 4.2 mmol/L (3.5-5.1) 10/28/19 14:26 Chloride 110 mmol/L (98-107) H 10/28/19 14:26 Carbon Dioxide 21 mmol/L (21-32) 10/28/19 14:26 Anion Gap 10 MMOL/L (8-16) 10/28/19 14:26 BUN 21.6 mg/dL (7-18) H 10/28/19 14:26 Creatinine 1.7 mg/dL (0.55-1.3) H 10/28/19 14:26 Est GFR (CKD-EPI)AfAm 49.70 10/28/19 14:26 Est GFR (CKD-EPI)NonAf 42.88 10/28/19 14:26 Random Glucose 172 mg/dL (74-106) H 10/28/19 14:26 Calcium 8.3 mg/dL (8.5-10.1) L 10/28/19 14:26 Magnesium 1.7 mg/dL (1.8-2.4) L 10/28/19 14:26 Total Bilirubin 0.7 mg/dL (0.2-1) 10/28/19 14:26 AST 29 U/L (15-37) 10/28/19 14:26 ALT 29 U/L (13-61) 10/28/19 14:26 Alkaline Phosphatase 105 U/L (45-117) 10/28/19 14:26 Creatine Kinase 204 U/L (26-308) 10/28/19 14:26 Creatine Kinase Index 11.1 % (0.0-5.0) H 10/28/19 14:26 CK-MB (CK-2) 22.7 ng/mL (0.5-3.6) H 10/28/19 14:26 Troponin I 0.18 ng/ml (0.00-0.05) H 10/28/19 14:26 B-Natriuretic Peptide 72241.4 pg/ml (5-125) H 10/28/19 14:26 Total Protein 6.4 g/dl (6.4-8.2) 10/28/19 14:26 Albumin 3.1 g/dl (3.4-5.0) L 10/28/19 14:26 Urine Color Yellow 10/28/19 14:30 Urine Appearance Cloudy 10/28/19 14:30 Urine pH 5.5 (5.0-8.0) 10/28/19 14:30 Ur Specific [place] 1.015 (1.010-1.035) 10/28/19 14:30 Urine Protein 4+ (NEGATIVE) H 10/28/19 14:30 Urine Glucose (UA) Trace (NEGATIVE) 10/28/19 14:30 Urine Ketones Negative (NEGATIVE) 10/28/19 14:30 Urine Blood 2+ (NEGATIVE) H 10/28/19 14:30 Urine Nitrite Negative (NEGATIVE) 10/28/19 14:30 Urine Bilirubin Negative (NEGATIVE) 10/28/19 14:30 Urine Urobilinogen 1.0 mg/dL (0.2-1.0) 10/28/19 14:30 Ur Leukocyte Esterase 2+ (NEGATIVE) H 10/28/19 14:30 Urine WBC (Auto) 38 /hpf (0-5) 10/28/19 14:30 Urine RBC (Auto) 11 /hpf (0-4) 10/28/19 14:30 Urine Casts (Auto) 4 /lpf (0-8) 10/28/19 14:30 U Epithel Cells (Auto) 1.7 /HPF (0-5/HPF) 10/28/19 14:30 Urine Bacteria (Auto) 86.4 /hpf (NEGATIVE) 10/28/19 14:30 10/28/19 17:10 D/w the admitting team who accepts the pt for admission. Discharge - Discharge Information Problems reviewed: Yes Clinical Impression/Diagnosis: Edema Condition: Guarded Disposition: TRANSFER ACUTE CARE/OTHER HOSP - Follow up/Referral Referrals: Kenyon Ramirez MD [Primary Care Provider] - - Patient Discharge Instructions - Post Discharge Activity
[2019-10-28] MEDS ORDERED: SULFAMETHOXAZOLE/TRIMETHOPRIM 800MG/160MG D.S. TABLET PO ONE (16:13)
--- NOTE | 2019-10-28 16:16 | PDOC ---
Attending Attestation - Resident Resident Name: Elliot Faith - ED Attending Attestation I have performed the following: I have examined & evaluated the patient, The case was reviewed & discussed with the resident, I agree w/resident's findings & plan - HPI HPI: 10/28/19 16:11 58-year-old male with history of hypertension, diabetes noncompliant with medications for about 6 months presents now with 1 month of progressive dyspnea on exertion, intermittent chest pain, and leg swelling with volume overload. No chest pain today, reports orthopnea, no fevers or chills or cough - Physicial Exam PE: 10/28/19 16:13 Elevated blood pressure, tachycardia,relative hypoxia on room air Seated comfortably in stretcher with no acute distress other than slight tachypnea No appreciated JVD Heart is regular slight tachycardia with 2 out of 6 systolic ejection murmur Slight bibasilar crackles, no wheezing or focally decreased breath sounds Abdomen benign Positive scrotal and lower leg edema - Medical Decision Making 10/28/19 16:14 58-year-old male with volume overload and likely diastolic CHF secondary to uncontrolled hypertension resulting from medication noncompliance. Rule out ACS versus progressive CHF, possible superimposed renal injury. No chest pain to suggest acute ischemic episode. Labs notable for borderline troponin, elevated BNP, creatinine 1.7 EKG, chest x-ray IV diuresis, blood pressure control admission Heart Score/ECG Review #1 ECG reviewed & interpreted by me at: 13:47 General ECG Interpretation: Sinus Rhythm (with PVC noted), Normal Rate (105), Normal Intervals (qtc 459), No acute ischemic changes (precordial Q waves) Compared to previous ECG there are: Changes noted (c/w 11/10)
[2019-10-28] MEDS ORDERED: FUROSEMIDE 40 MG/4 ML INJECTABLE VIAL IVPUSH ONE (16:21)
[2019-10-28] MEDS ORDERED: NITROGLYCERIN 2% OINTMENT - 1GM PACKET TD ONE ×2 (16:22→17:59)
--- NOTE | 2019-10-28 16:24 | EKG ---
Test Reason : Blood Pressure : / mmHG Vent. Rate : 105 BPM Atrial Rate : 105 BPM P-R Int : 168 ms QRS Dur : 096 ms QT Int : 348 ms P-R-T Axes : 054 -59 082 degrees QTc Int : 459 ms SINUS TACHYCARDIA WITH OCCASIONAL PREMATURE VENTRICULAR COMPLEXES POSSIBLE LEFT ATRIAL ENLARGEMENT LOW VOLTAGE QRS LEFT ANTERIOR FASCICULAR BLOCK SEPTAL INFARCT (CITED ON OR BEFORE 26-OCT-2016) POSSIBLE LATERAL INFARCT (CITED ON OR BEFORE 26-OCT-2016) ABNORMAL ECG Confirmed by MD Rodrigo, Gabe ([id number]) on 10/28/2019 4:23:53 PM Referred By: Confirmed By:Gabe Wallace MD
[2019-10-28] MEDS ORDERED: CLOPIDOGREL BISULFATE 75 MG TABLET (FP) PO ONE (16:50)
--- NOTE | 2019-10-28 17:02 | HP ---
CHIEF COMPLAINT: shortness of breath, orthopnea PCP: Dr. Ramirez (has not seen for over a year) HISTORY OF PRESENT ILLNESS: Patient is a 58 year old male with a significant past medical history of diabetes and hypertension. He has not taken any medications for hypertension or diabetes for over 6 months for lack of medical follow up. He has insurance ( [employer]) but admits he has not seen a PCP because he felt well and had no issues. He went to see his urologist today (Dr. Nathan Blackwell) for scrotal swelling and pain. After being evaluated, he was told to come to the ED for possible CHF exacerbation. Patient was told that the lower extremity edema was contributing to this overall pain. Patient endorses chest pain that is intermittent, non radiating. No abd pain. No headache/dizziness, no dysuria or hematuria. Pt has not had these symptoms before. On exam, patient also reports persistent intermittent non radiating mid sternal chest pain that comes and goes but denies any shortness of breath. He was given nitrostat paste in the ED and given plavix 75 mg. His troponons are elevated at 0.18. ER course was notable for: (1) bnp 25k (2) creat 1.7, baseline 1.1 (3) yellow cloudy turbid urine, +2 leuks, 86 bacteria - given bactrim in the ED (4) glucose 172 (5) mag 1.7 (6) bp 190/115, heart 108 (7)eKG shows sinus tachycardia with PVCs, 105 bpm, QTc 459 Recent Travel: denies PAST MEDICAL HISTORY: diabetes, hypertension Social History: Smoking: denies Alcohol:denies Drugs: denies Allergies aspirin Allergy (Severe, Verified 10/28/19 13:48) Abdominal pain egg Allergy (Severe, Verified 10/28/19 13:48) Violently ill, vomiting tomato Allergy (Severe, Verified 10/28/19 13:48) Violently ill, vomiting HOME MEDICATIONS: Home Medications Medication Instructions Recorded Latanoprost 0.005% Eye Drops 1 drop HS 11/09/16 [Xalatan 0.005% Eye Drops -] Ramipril 2.5 mg PO DAILY 11/09/16 metFORMIN HCL [Metformin HCl] 500 mg PO BID 11/09/16 Cholecalciferol (Vitamin D3) 2,000 unit PO 2 daily tablet 11/14/16 [Vitamin D3] Ibuprofen [Motrin -] 600 mg PO TID PRN #21 tablet 02/10/17 Lidocaine 5% Patch [Lidoderm Patch 1 patch TP DAILY PRN #30 patch 02/10/17 -] Methocarbamol [Robaxin -] 500 mg PO TID PRN #21 tablet 02/10/17 Acetaminophen 1,000 mg PO Q4HWA #20 liquid 05/26/19 PHYSICAL EXAMINATION Vital Signs - 24 hr 10/28/19 10/28/19 13:46 16:57 Temperature 98.3 F 98.7 F Pulse Rate 108 H 37 L Respiratory 20 20 Rate Blood Pressure 190/115 H 122/50 L O2 Sat by Pulse 93 L Oximetry (%) GENERAL: Awake, alert, and fully oriented, in no acute distress. HEAD: Normal with no signs of trauma. EYES: Pupils equal, round and reactive to light, extraocular movements intact, sclera anicteric, conjunctiva clear. No lid lag. EARS, NOSE, THROAT: Ears normal, nares patent, oropharynx clear without exudates. Moist mucous membranes. NECK: Normal range of motion, supple without lymphadenopathy, JVD, or masses. LUNGS: diminished right lower lobe compared to left, diminished upper lobes. tolerating room air HEART: Regular rate and rhythm ABDOMEN: Soft, nontender, not distended, normoactive bowel sounds, no guarding, no rebound, no masses. No hepatomegaly or splenomegaly. SCROTUM: scrotal edema with mild erythema MUSCULOSKELETAL: No CVA tenderness. UPPER EXTREMITIES: No peripheral edema. LOWER EXTREMITIES: +2 peripheral edema bilaterally NEUROLOGICAL: Normal speech. gait not observed PSYCHIATRIC: Cooperative. Good eye contact. Appropriate mood and affect. SKIN: self inflicted scratches on bilateral lower ext. Laboratory Results - last 24 hr 10/28/19 10/28/19 10/28/19 14:26 14:26 14:26 WBC 8.2 RBC 4.21 Hgb 12.3 Hct 37.9 MCV 89.9 MCH 29.1 MCHC 32.4 RDW 14.7 D Plt Count 245 D MPV 9.1 Absolute Neuts (auto) 5.8 Neutrophils % 70.3 D Lymphocytes % 18.9 D Monocytes % 8.6 Eosinophils % 1.2 Basophils % 1.0 Nucleated RBC % 0 Sodium 141 Potassium 4.2 Chloride 110 H Carbon Dioxide 21 Anion Gap 10 BUN 21.6 H Creatinine 1.7 H Est GFR (CKD-EPI)AfAm 49.70 Est GFR (CKD-EPI)NonAf 42.88 Random Glucose 172 H Calcium 8.3 L Magnesium 1.7 L Total Bilirubin 0.7 AST 29 ALT 29 Alkaline Phosphatase 105 Creatine Kinase 204 Creatine Kinase Index 11.1 H CK-MB (CK-2) 22.7 H Troponin I 0.18 H B-Natriuretic Peptide 17146.4 H Total Protein 6.4 Albumin 3.1 L TSH 3.50 D Urine Color Urine Appearance Urine pH Ur Specific [place] Urine Protein Urine Glucose (UA) Urine Ketones Urine Blood Urine Nitrite Urine Bilirubin Urine Urobilinogen Ur Leukocyte Esterase Urine WBC (Auto) Urine RBC (Auto) Urine Casts (Auto) U Epithel Cells (Auto) Urine Bacteria (Auto) 10/28/19 14:30 WBC RBC Hgb Hct MCV MCH MCHC RDW Plt Count MPV Absolute Neuts (auto) Neutrophils % Lymphocytes % Monocytes % Eosinophils % Basophils % Nucleated RBC % Sodium Potassium Chloride Carbon Dioxide Anion Gap BUN Creatinine Est GFR (CKD-EPI)AfAm Est GFR (CKD-EPI)NonAf Random Glucose Calcium Magnesium Total Bilirubin AST ALT Alkaline Phosphatase Creatine Kinase Creatine Kinase Index CK-MB (CK-2) Troponin I B-Natriuretic Peptide Total Protein Albumin TSH Urine Color Yellow Urine Appearance Cloudy Urine pH 5.5 Ur Specific [place] 1.015 Urine Protein 4+ H Urine Glucose (UA) Trace Urine Ketones Negative Urine Blood 2+ H Urine Nitrite Negative Urine Bilirubin Negative Urine Urobilinogen 1.0 Ur Leukocyte Esterase 2+ H Urine WBC (Auto) 38 Urine RBC (Auto) 11 Urine Casts (Auto) 4 U Epithel Cells (Auto) 1.7 Urine Bacteria (Auto) 86.4 ASSESSMENT/PLAN: Problem List - Problem (1) Elevated troponin Assessment/Plan: initial trop 0.18, continue to trend Code(s): R79.89 - OTHER SPECIFIED ABNORMAL FINDINGS OF BLOOD CHEMISTRY (2) Chest pain Assessment/Plan: trend troponins, on nitrostat patch start on metoprolol 50mg tartrate bid for echo in am. ekg without st elevation cardiology consult Code(s): R07.9 - CHEST PAIN, UNSPECIFIED (3) Hypertensive emergency Assessment/Plan: given nitrostat start on metroplol 50 bid hold off on an ARB/luz as patient has acute elissa Code(s): I16.1 - HYPERTENSIVE EMERGENCY (4) Elevated brain natriuretic peptide (BNP) level Assessment/Plan: bnk 25k, echo ordered patient with scrotal edema, lower ext edema and orthpenea daily weights, monitor intake and output lasix 40 iv bid Code(s): R79.89 - OTHER SPECIFIED ABNORMAL FINDINGS OF BLOOD CHEMISTRY (5) ELISSA (acute kidney injury) Assessment/Plan: creatinine above baseline of 1.1, currently 1.7 in the setting of uncontrolled blood pressure given lasix 40mg iv in the ED will continue BID 40mg iv dosing monitor renal function, if worsening will order renal u/s and consult renal speciality renal dose meds Code(s): N17.9 - ACUTE KIDNEY FAILURE, UNSPECIFIED (6) Diastolic CHF Code(s): I50.30 - UNSPECIFIED DIASTOLIC (CONGESTIVE) HEART FAILURE (7) Shortness of breath Assessment/Plan: tolerating room air has+ orthopnea in the setting of acute chf exacerbation Code(s): R06.02 - SHORTNESS OF BREATH (8) UTI (urinary tract infection) Assessment/Plan: UTI seen on UA UC pending on ceftriaxone Code(s): N39.0 - URINARY TRACT INFECTION, SITE NOT SPECIFIED Visit type - Emergency Visit Emergency Visit: Yes ED Registration Date: 10/28/19 Care time: The patient presented to the Emergency Department on the above date and was hospitalized for further evaluation of their emergent condition. - New Patient This patient is new to me today: Yes Date on this admission: 10/29/19 - Critical Care Critical Care patient: No
[2019-10-28] MEDS ORDERED: FUROSEMIDE 40 MG/4 ML INJECTABLE VIAL ONE (17:58)
[2019-10-28] MEDS ORDERED: SULFAMETHOXAZOLE/TRIMETHOPRIM 800MG/160MG D.S. TABLET ONE (17:58)
[2019-10-28] MEDS ORDERED: CLOPIDOGREL BISULFATE 75 MG TABLET (FP) ONE (17:58)
[2019-10-28] MEDS ORDERED: MAGNESIUM OXIDE 400 MG TABLET (FP) PO ONE (18:25)
[2019-10-28] MEDS ORDERED: ALBUTEROL SO4 2.5/IPRATROPIUM 0.5 INH SOL 3 ML VIAL.NEB. NEB PRN (18:49)
[2019-10-28] MEDS ORDERED: ACETAMINOPHEN 325 MG TABLET (FP) PO PRN (18:52)
[2019-10-28] MEDS ORDERED: MAGNESIUM OXIDE 400 MG TABLET (FP) ONE (20:53)
[2019-10-28 21:41] LABS: INR 1.21 (0.83-1.09); PROTHROMBIN TIME (PATIENT) 14.3 SEC (9.7-13.0)
[2019-10-28 21:44] LABS: ACTIVATED PTT 35.5 SECONDS (25.2-36.5)
[2019-10-28] MEDS ORDERED: METOPROLOL TARTRATE 25 MG TABLET (FP) PO SCH (22:00)
[2019-10-28] MEDS ORDERED: HEPARIN NA (PORCINE) 5,000 UNITS/ML 1ML VIAL SQ SCH (22:00)
--- NOTE | 2019-10-28 23:03 | CON.CARD ---
Consult - History of Present Illness History of Present Illness: Patient is a 58 year old male with a significant past medical history of diabetes and hypertension. He has not taken any medications for hypertension or diabetes for over 6 months for lack of medical follow up. He has insurance ( [employer]) but admits he has not seen a PCP because he felt well and had no issues. He went to see his urologist today (Dr. Nathan Blackwell) for scrotal swelling and pain. After being evaluated, he was told to come to the ED for possible CHF exacerbation. Patient was told that the lower extremity edema was contributing to this overall pain. Patient endorses chest pain that is intermittent, non radiating. No abd pain. No headache/dizziness, no dysuria or hematuria. Pt has not had these symptoms before. On exam, patient also reports persistent intermittent non radiating mid sternal chest pain that comes and goes but denies any shortness of breath. He was given nitrostat paste in the ED and given plavix 75 mg. His troponons are elevated at 0.18. - Alcohol/Substance Use Hx Alcohol Use: No - Smoking History Smoking history: Never smoked Have you smoked in the past 12 months: No Home Medications - Allergies Allergies/Adverse Reactions: Allergies Allergy/AdvReac Type Severity Reaction Status Date / Time aspirin Allergy Severe Abdominal Verified 10/28/19 13:48 pain egg Allergy Severe Violently Verified 10/28/19 13:48 ill, vomiting tomato Allergy Severe Violently Verified 10/28/19 13:48 ill, vomiting - Home Medications Home Medications: Ambulatory Orders Latanoprost 0.005% Eye Drops [Xalatan 0.005% Eye Drops -] 1 drop HS 11/09/16 Ramipril 2.5 mg PO DAILY 11/09/16 metFORMIN HCL [Metformin HCl] 500 mg PO BID 11/09/16 Cholecalciferol (Vitamin D3) [Vitamin D3] 2,000 unit PO 2 daily tablet Ibuprofen [Motrin -] 600 mg PO TID PRN #21 tablet 02/10/17 Lidocaine 5% Patch [Lidoderm Patch -] 1 patch TP DAILY PRN #30 patch 02/10/17 Methocarbamol [Robaxin -] 500 mg PO TID PRN #21 tablet 02/10/17 Acetaminophen 1,000 mg PO Q4HWA #20 liquid 05/26/19 Vital Signs: Vital Signs Temperature 98.1 F 03/03/20 21:26 Pulse Rate 96 H 10/28/19 21:26 Respiratory Rate 20 10/28/19 21:26 Blood Pressure 140/98 10/28/19 21:26 O2 Sat by Pulse Oximetry (%) 96 10/28/19 21:26 - Other Data Labs, Other Data: CBC, BMP 10/28/19 14:26 10/28/19 14:26 INR, PTT INR 1.21 (0.83-1.09) H 10/28/19 21:00 Troponin, BNP 10/28/19 10/28/19 10/28/19 14:26 14:26 21:00 Troponin I 0.18 H 0.21 H B-Natriuretic Peptide 66525.4 H Troponin, BNP 10/28/19 10/28/19 10/28/19 14:26 14:26 21:00 Troponin I 0.18 H 0.21 H B-Natriuretic Peptide 64585.4 H
[2019-10-28] MEDS ORDERED: METOPROLOL TARTRATE 50 MG TABLET (FP) ONE (23:20)
[2019-10-28] MEDS ORDERED: HEPARIN NA (PORCINE) 5,000 UNITS/ML 1ML VIAL ONE (23:20)
[2019-10-28] MEDS: METOPROLOL TARTRATE 50 MG TABLET (FP) PO SCH (23:29)
[2019-10-29] MEDS ORDERED: HEPARIN NA (PORCINE) 5,000 UNITS/ML 1ML VIAL IVPUSH PRN (00:10)
[2019-10-29] MEDS ORDERED: ATORVASTATIN CA 80 MG TABLET (FP) PO ONE (00:11)
[2019-10-29] MEDS ORDERED: METOPROLOL TARTRATE 5 MG/5 ML VIAL IVPUSH PRN (00:11)
--- NOTE | 2019-10-29 00:11 | CON.CARD ---
Consult Consult Specialty:: cardiology Reason for Consultation:: elevated TNI; SVT - History of Present Illness Chief Complaint: Pt A&Ox3; no chest pain or palpitations; not dyspneic. History of Present Illness: 58-year-old man with history of hypertension, diabetes, hyperlipidemia, enlarged prostate, obese (weighed 175 lbs until the past month or two, when, without change in diet, it increased to 202 lbs), "blind" x 5 yrs (until underwent cataracte surgery; still has glaucoma), noncompliant with medications for about 6 months, presents now with 1 month of progressive dyspnea on exertion, intermittent chest pain, and leg swelling/scrotal swelling and pain (saw urologist, Dr. Blackwell, today) with volume overload. No chest pain today; reports orthopnea; no fevers/chills/cough. After being evaluated, he was told to come to the ED for possible CHF exacerbation. Patient endorses chest pain that is intermittent, non radiating. No abd pain. No headache/dizziness, no dysuria or hematuria. Pt has not had these symptoms before. On exam, patient also reports persistent intermittent non radiating mid sternal chest pain that comes and goes but denies any shortness of breath. BP initially recorded as 180/112 mmHg. He was given nitrostat paste in the ED and given plavix 75 mg. His troponons are elevated at 0.18 Until the leg swelling began 3 wks ago, he was walking 3-4 miles a day, nearly every day; denies exertional chest pain or dyspnea. - History Source History Provided By: Patient, Medical Record Limitations to Obtaining History: No Limitations - Past Medical History Cardio/Vascular: Yes: CHF (diastolic (ECHO 2017)), HTN Endocrine: Yes: Diabetes Mellitus - Past Surgical History Past Surgical History: Yes: Cataract Removal - Alcohol/Substance Use Hx Alcohol Use: No - Smoking History Smoking history: Never smoked Have you smoked in the past 12 months: No - Social History Usual Living Arrangement: With Spouse Home Medications - Allergies Allergies/Adverse Reactions: Allergies Allergy/AdvReac Type Severity Reaction Status Date / Time aspirin Allergy Severe Abdominal Verified 10/28/19 13:48 pain egg Allergy Severe Violently Verified 10/28/19 13:48 ill, vomiting tomato Allergy Severe Violently Verified 10/28/19 13:48 ill, vomiting - Home Medications Home Medications: Ambulatory Orders Latanoprost 0.005% Eye Drops [Xalatan 0.005% Eye Drops -] 1 drop HS 11/09/16 Ramipril 2.5 mg PO DAILY 11/09/16 metFORMIN HCL [Metformin HCl] 500 mg PO BID 11/09/16 Cholecalciferol (Vitamin D3) [Vitamin D3] 2,000 unit PO 2 daily tablet 11/14/16 Ibuprofen [Motrin -] 600 mg PO TID PRN #21 tablet 02/10/17 Lidocaine 5% Patch [Lidoderm Patch -] 1 patch TP DAILY PRN #30 patch 02/10/17 Methocarbamol [Robaxin -] 500 mg PO TID PRN #21 tablet 02/10/17 Acetaminophen 1,000 mg PO Q4HWA #20 liquid 05/26/19 Family Medical History Family Hx Cancer: Father, Brother Family Hx Cardiac Disorders: Brother (heart disesas: at 10 yrs old) Review of Systems - Review of Systems Constitutional: reports: Other (leg swelling x 3 weeks) Eyes: reports: Blurred Vision ("blind" for 5 yrs, until he had bilateral cataract surgery; still has glaucoma) HENT: reports: No Symptoms Neck: reports: No Symptoms Cardiovascular: reports: No Symptoms Respiratory: reports: No Symptoms Gastrointestinal: reports: No Symptoms Genitourinary: reports: Other (scrotal swelling; "enlarged prostate") Breasts: reports: No Symptoms Reported Neurological: reports: No Symptoms Endocrine: reports: No Symptoms Hematology/Lymphatic: reports: No Symptoms Psychiatric: reports: No Symptoms - Risk Factors Known Risk Factors: Yes: Age, Diabetes Mellitus, Gender, Hypertension Vital Signs: Vital Signs Temperature 98.1 F 10/28/19 21:26 Pulse Rate 159 H 10/28/19 23:30 Respiratory Rate 20 10/28/19 23:30 Blood Pressure 121/76 10/28/19 23:30 O2 Sat by Pulse Oximetry (%) 98 10/28/19 23:30 Abnormal Lab Results 10/29/19 10/29/19 10/30/19 16:25 23:30 09:50 Monocytes % Eosinophils % PTT (Actin FS) 46.3 H 44.1 H 50.0 H BUN Creatinine Random Glucose Albumin 10/30/19 10/30/19 09:50 09:50 Monocytes % 11.5 H Eosinophils % 5.3 H D PTT (Actin FS) BUN 31.5 H Creatinine 2.2 H Random Glucose 193 H Albumin 3.2 L Constitutional: Yes: Anxious, Obese Eyes: Yes: WNL HENT: Yes: WNL Neck: Yes: WNL Respiratory: Yes: WNL Gastrointestinal: Yes: WNL Renal/: Yes: Scrotal Edema. No: Anuria Cardiovascular: Yes: Other (now NSR; previously had episode of PSVT) JVD: No Carotid Bruit: No PMI: Non-Displaced Heart Sounds: Yes: S1, S2, S4 Murmur: Yes: Systolic Murmur, Grade 1 Musculoskeletal: Yes: Joint Swelling Extremities: Yes: Cool Edema: Yes Edema: LLE: 2+, RLE: 2+ Peripheral Pulses WNL: Yes Integumentary: Yes: Venous Stasis Changes Neurological: Yes: Alert, Oriented Psychiatric: Yes: WNL - Other Data Labs, Other Data: CBC, BMP 10/28/19 14:26 10/28/19 14:26 INR, PTT INR 1.21 (0.83-1.09) H 10/28/19 21:00 Troponin, BNP 10/28/19 10/28/19 10/28/19 14:26 14:26 21:00 Troponin I 0.18 H 0.21 H B-Natriuretic Peptide 45716.4 H Troponin, BNP 10/28/19 10/28/19 10/28/19 14:26 14:26 21:00 Troponin I 0.18 H 0.21 H B-Natriuretic Peptide 92133.4 H Abnormal Lab Results 10/29/19 10/29/19 10/30/19 16:25 23:30 09:50 Monocytes % Eosinophils % PTT (Actin FS) 46.3 H 44.1 H 50.0 H BUN Creatinine Random Glucose Albumin 10/30/19 10/30/19 09:50 09:50 Monocytes % 11.5 H Eosinophils % 5.3 H D PTT (Actin FS) BUN 31.5 H Creatinine 2.2 H Random Glucose 193 H Albumin 3.2 L Echo: Pending Imaging - Results Chest X-ray: Image Reviewed EKG: Image Reviewed Problem List - Problems (1) Chest pain Assessment/Plan: TNI 0.18-->0.21; CK elevated, with MB relative index 11. EKG: PSVT with Qs inferiorly; now in sinus tachycardia. TSH WNL. Elevated BNP; no acute piulmonary process on CXR. ELISSA. Allergic to ASA Given clopidogrel 75 mg; and daily. Add IV heparin. Atorvastatin 80 mg now and daily. On metoprolol tartrate 50 mg bid; IVP 5 mg prn for elevated HR, BP, PSVT. Replete Mg, and keep 2.0-2.4 BP control is crucial (initially 182/112 mmHg). ECHO for LVEF, wall motion, valve status. Coronary artery evaluation (stress test and/or coronary angiogram) when stable. Code(s): R07.9 - CHEST PAIN, UNSPECIFIED (2) Diastolic CHF Code(s): I50.30 - UNSPECIFIED DIASTOLIC (CONGESTIVE) HEART FAILURE (3) Edema Assessment/Plan: bilateral 2 + pitting LE edema to knees. scrotal edema and erythema. CXR: no acute infiltrate. On IV furosemide; f/u BUN/Cr, electrolytes, daily weight, Is ans Os. Code(s): R60.9 - EDEMA, UNSPECIFIED (4) Elevated brain natriuretic peptide (BNP) level Assessment/Plan: Diastolic CHF. NSTEMI Code(s): R79.89 - OTHER SPECIFIED ABNORMAL FINDINGS OF BLOOD CHEMISTRY (5) Elevated troponin Assessment/Plan: Elevated TNI, with CKMB relative index > 5. No further chest pain. Treat as NSTEMI. ASA and clopidogrel; IV heparin x 48 hours (december d/c then if "uncomplicated MA"). On metoprolol. Nitrates prn. ACEI if BUN/Cr, electrolytes allow. Plan for coronary artery evaluation when stable. Code(s): R79.89 - OTHER SPECIFIED ABNORMAL FINDINGS OF BLOOD CHEMISTRY (6) UTI (urinary tract infection) Code(s): N39.0 - URINARY TRACT INFECTION, SITE NOT SPECIFIED (7) PSVT (paroxysmal supraventricular tachycardia) Assessment/Plan: Now in NSR. NSTEMI. On metoprolol. ECHO for LVEF, chamber sizes, wall motion and thickness, valve status. Telemetry monitoring Maintain electrolytes WNL. Avoid excessive dehydration. Coronary artery evaluation when stable. Code(s): I47.1 - SUPRAVENTRICULAR TACHYCARDIA
[2019-10-29] MEDS: INSULIN SLIDING SCALE (NOVOLOG) 1 VIAL SQ SCH ×5 (00:15→22:08)
[2019-10-29] MEDS ORDERED: ATORVASTATIN CA 80 MG TABLET (FP) ONE (00:18)
[2019-10-29] MEDS ORDERED: HEPARIN INFUSION - 25,000 UNITS/500 ML INFUS.BAG IVPB ONE (00:19)
[2019-10-29] MEDS: HEPARIN - 25,000 UNIT in SODIUM CHLORIDE 495 ML IV SCH (00:27)
--- NOTE | 2019-10-29 00:34 | PN ---
Progress Note (short form) - Note Progress Note: Received microblog patient was Tachycardic. EKG showed SVT with HR of 160. Approximately 20 minutes later returned to sinus tachycardia with rate of 101. Spoke with Dr. Cortez: elevated suspicion for ACS, started on heparin drip, atorvastatin 80, magnesium repleted and Lipid panel ordered.
[2019-10-29] MEDS ORDERED: MAGNESIUM SULFATE 2 GM in DEXTROSE 5%-WATER - 100 ML IVPB ONE (00:45)
[2019-10-29] MEDS ORDERED: MAGNESIUM SULF 50% (8.12 MEQ/2 ML-1 GM VIAL) ONE (01:27)
[2019-10-29 01:31] VITALS: BMI 31.6
[2019-10-29] MEDS: FUROSEMIDE 40 MG/4 ML INJECTABLE VIAL IVPUSH SCH ×2 (06:21→14:36)
[2019-10-29 07:28] LABS: BASO % 1.1 % (0-2.0); EOS % 2.1 % (0-4.5); HEMATOCRIT 34.8 % (35.4-49); HEMOGLOBIN 11.6 GM/dL (11.7-16.9); LYMPH % 25.8 % (8-40); MCH 29.7 pg (25.7-33.7); MCHC 33.4 g/dl (32.0-35.9); MEAN PLT VOLUME 8.9 fl (7.5-11.1); MONO % 10.3 % (3.8-10.2); NEUT % 60.7 % (42.8-82.8); PLATELET COUNT 243 K/MM3 (134-434); RBC 3.91 M/mm3 (4.00-5.60); RDW 14.8 % (11.9-15.9); WHITE BLOOD COUNT 7.3 K/mm3 (4.0-10.0)
[2019-10-29 07:43] LABS: ALBUMIN 2.9 g/dl (3.4-5.0); BILIRUBIN,TOTAL 0.9 mg/dL (0.2-1); BLOOD UREA NITROGEN 25.1 mg/dL (7-18); CALCIUM 8.6 mg/dL (8.5-10.1); POTASSIUM 4.4 mmol/L (3.5-5.1)
--- NOTE | 2019-10-29 08:43 | EKG ---
Test Reason : Blood Pressure : / mmHG Vent. Rate : 161 BPM Atrial Rate : 150 BPM P-R Int : 000 ms QRS Dur : 088 ms QT Int : 294 ms P-R-T Axes : 000 -80 126 degrees QTc Int : 481 ms POOR DATA QUALITY, INTERPRETATION MAY BE ADVERSELY AFFECTED SUPRAVENTRICULAR TACHYCARDIA LEFT AXIS DEVIATION INFERIOR INFARCT , AGE UNDETERMINED ABNORMAL ECG WHEN COMPARED WITH ECG OF 28-OCT-2019 13:47, SIGNIFICANT CHANGES HAVE OCCURRED Confirmed by MD DONNY, HENRIETTA ([id number]) on 10/29/2019 8:43:03 AM Referred By: Confirmed By:HENRIETTA HINES MD
[2019-10-29] MEDS ORDERED: cefTRIAXone SODIUM 1 GM VIAL ONE (09:05)
[2019-10-29] MEDS ORDERED: DEXTROSE 5%-WATER - 50 ML IVPB ONE (09:06)
[2019-10-29] MEDS: METOPROLOL TARTRATE 50 MG TABLET (FP) PO SCH ×2 (09:10→22:08)
[2019-10-29] MEDS: CEFTRIAXONE 1 GM in DEXTROSE 5%-WATER - 50 ML IVPB SCH (09:10)
[2019-10-29] MEDS: HEPARIN NA (PORCINE) 5,000 UNITS/ML 1ML VIAL IVPUSH PRN ×2 (09:11→17:31)
--- NOTE | 2019-10-29 12:17 | ECHO ---
Version: 1 Name: DONN KHAN Exam: Adult Echocardiogram Study Date: 10/29/2019, 10:43 AM Age: 58 Years MMode/2D Measurements & Calculations IVSd: 1.25 cm LVIDs: 2.8 cm LVIDd: 3.8 cm LVPWd: 1.71 cm LAV (MOD-bp): 72.5 ml LVOT diam: 1.97 cm Ao root diam: 3.3 cm LA dimension: 3.9 cm Doppler Measurements & Calculations MV E max geovanni: 84.4 cm/sec Med E/e': 18.9 MV A max geovanni: 56.8 cm/sec Med Peak E' Geovanni: 4.5 cm/sec MV E/A: 1.49 Lat E/e': 16.2 Lat Peak E' Geovanni: 5.2 cm/sec MR max P.6 mmHg Ao max P.5 mmHg Ao V2 max: 106.4 cm/sec AI P1/2t: 494.1 msec TR max geovanni: 254.1 cm/sec TR max P.9 mmHg Procedure A complete two-dimensional transthoracic echocardiogram was performed (2D, M-mode, Doppler and color flow Doppler). suboptimal suprasternal views. Left Ventricle There is severe concentric left ventricular hypertrophy. The left ventricular ejection fraction is n ormal. Ejection Fraction = 55-60%. Diastolic dysfunction, Grade II, consistent with elevated left atrial pr essure. Right Ventricle The right ventricle is normal size. There is mild right ventricular hypertrophy. The right ventricul ar systolic function is normal. Atria The left atrium is mildly dilated. Right atrial size is normal. Mitral Valve The mitral valve is normal in structure and function. There is mild mitral regurgitation. Tricuspid Valve The tricuspid valve is normal in structure and function. There is mild tricuspid regurgitation. Assu luís the RA pressure is 20 mmHg. Right ventricular systolic pressure is elevated at 46 mmhg. There is mild pu lmonary hypertension. Aortic Valve The aortic valve is not well visualized. No hemodynamically significant valvular aortic stenosis. Tr luz aortic regurgitation. Pulmonic Valve The pulmonic valve is normal in structure and function. Great Vessels The aortic root is normal size. Pericardium/Pleura Small pericardial effusion (<1cm). Summary Statements There is severe concentric left ventricular hypertrophy. The left ventricular ejection fraction is n ormal. There is mild right ventricular hypertrophy. The right ventricular systolic function is normal. Diastolic dysfunction, Grade II, consistent with elevated left atrial pressure. There is mild pulmonary hypertension. Frank Roman 10/29/2019, 12:17 PM Ordering Physician: Thuy Garcia Referring Physician: THUY GARCIA Performed By: Christie Almanza
--- NOTE | 2019-10-29 13:18 | PN ---
Progress Note, Physician History of Present Illness: Patient is a 58 year old male with a significant past medical history of diabetes and hypertension. He has not taken any medications for hypertension or diabetes for over 6 months for lack of medical follow up. He has insurance ( [employer]) but admits he has not seen a PCP because he felt well and had no issues. He went to see his urologist today (Dr. Nathan Blackwell) for scrotal swelling and pain. After being evaluated, he was told to come to the ED for possible CHF exacerbation. Patient was told that the lower extremity edema was contributing to this overall pain. Patient endorses chest pain that is intermittent, non radiating. No abd pain. No headache/dizziness, no dysuria or hematuria. Pt has not had these symptoms before. On exam, patient also reports persistent intermittent non radiating mid sternal chest pain that comes and goes but denies any shortness of breath. He was given nitrostat paste in the ED and given plavix 75 mg. His troponons are elevated at 0.18. - Current Medication List Current Medications: Active Medications Acetaminophen (Tylenol -) 650 mg PO Q6H PRN PRN Reason: PAIN LEVEL 4 - 6 Albuterol/Ipratropium (Duoneb -) 1 amp NEB Q6H PRN PRN Reason: SHORTNESS OF BREATH Furosemide (Lasix Injection -) 40 mg IVPUSH BID@0600,1400 [facility] Last Admin: 10/29/19 06:21 Dose: 40 mg Heparin Sodium (Porcine) (Heparin -) 1,000 unit IVPUSH PRN PRN PRN Reason: Heparin Last Admin: 10/29/19 09:11 Dose: 1,000 unit Heparin Sodium (Porcine) (Heparin -) 5,000 unit IVPUSH PRN PRN PRN Reason: Heparin Ceftriaxone Sodium 1 gm/ (Dextrose) 50 mls @ 100 mls/hr IVPB DAILY [facility]; Protocol Last Admin: 10/29/19 09:10 Dose: 100 mls/hr Heparin Sodium (Porcine) 25, (000 unit/ Sodium Chloride) 500 mls @ 20 mls/hr IV TITR [facility]; Protocol Last Titration: 10/29/19 09:10 Dose: 1,100 unit/hr, 22 mls/hr Insulin Aspart (Novolog Vial Sliding Scale -) 1 vial SQ ACHS [facility]; Protocol Last Admin: 10/29/19 12:11 Dose: 2 unit Metoprolol Tartrate (Lopressor -) 50 mg PO BID [facility] Last Admin: 10/29/19 09:10 Dose: 50 mg Metoprolol Tartrate (Lopressor Injection -) 5 mg IVPUSH Q4H PRN PRN Reason: TACHYCARDIA - Objective Vital Signs: Vital Signs Temperature 98 F 10/29/19 09:00 Pulse Rate 83 10/29/19 09:00 Respiratory Rate 18 10/29/19 09:00 Blood Pressure 150/83 10/29/19 09:00 O2 Sat by Pulse Oximetry (%) 95 10/29/19 09:00 Eyes: Yes: WNL, Conjunctiva Clear, EOM Intact HENT: Yes: WNL, Atraumatic, Normocephalic Neck: Yes: WNL, Supple, Trachea Midline Cardiovascular: Yes: WNL, Regular Rate and Rhythm Respiratory: Yes: WNL, Regular, CTA Bilaterally Gastrointestinal: Yes: WNL, Normal Bowel Sounds Genitourinary: Yes: Scrotal Edema Musculoskeletal: Yes: WNL Extremities: Yes: WNL Edema: Yes Integumentary: Yes: WNL Neurological: Yes: WNL, Alert, Oriented ...Motor Strength: WNL Psychiatric: Yes: WNL Labs: CBC, BMP 10/29/19 05:47 10/29/19 05:47 INR, PTT INR 1.21 (0.83-1.09) H 10/28/19 21:00 Assessment/Plan - Problems (1) Chest pain Assessment/Plan: TNI 0.18-->0.21; CK elevated, with MB relative index 11. EKG: PSVT with Qs inferiorly; now in sinus tachycardia. TSH WNL. Elevated BNP; no acute piulmonary process on CXR. ELISSA. Allergic to ASA Restart clopidogrel 75 mg daily. Add IV heparin. Atorvastatin 80 mg now and daily. On metoprolol tartrate 50 mg bid; IVP 5 mg prn for elevated HR, BP, PSVT. Replete Mg, and keep 2.0-2.4 BP control is crucial (initially 182/112 mmHg). ECHO LVH nl ef Coronary artery evaluation (stress test and/or coronary angiogram) when stable. EP evaluation when stable. Code(s): R07.9 - CHEST PAIN, UNSPECIFIED (2) Diastolic CHF Code(s): I50.30 - UNSPECIFIED DIASTOLIC (CONGESTIVE) HEART FAILURE (3) Edema Code(s): R60.9 - EDEMA, UNSPECIFIED (4) Elevated brain natriuretic peptide (BNP) level Code(s): R79.89 - OTHER SPECIFIED ABNORMAL FINDINGS OF BLOOD CHEMISTRY (5) Elevated troponin Code(s): R79.89 - OTHER SPECIFIED ABNORMAL FINDINGS OF BLOOD CHEMISTRY (6) UTI (urinary tract infection) Code(s): N39.0 - URINARY TRACT INFECTION, SITE NOT SPECIFIED
[2019-10-29] MEDS: CLOPIDOGREL BISULFATE 75 MG TABLET (FP) PO SCH (14:36)
--- NOTE | 2019-10-29 17:26 | PN ---
Physical Exam: SUBJECTIVE: Patient seen and examined at the bedside. denies any chest pain or shortness of breath. OBJECTIVE: Patient is a 58 year old male with a significant past medical history of diabetes and hypertension. He has not taken any medications for hypertension or diabetes for over 6 months for lack of medical follow up. He has insurance ( [employer]) but admits he has not seen a PCP because he felt well and had no issues. He went to see his urologist on 10/28/2019 (Dr. Nathan Blackwell) for scrotal swelling and pain. After being evaluated, he was told to come to the ED for possible CHF exacerbation. Overnight had episode of SVT which self resolved, then started on heparin gtt. Vital Signs Period Temp Pulse Resp BP Sys/Saucedo Pulse Ox Last 24 Hr 98 F-98.4 F 78-159 16-20 119-182/75-112 95-98 GENERAL: Awake, alert, and fully oriented, in no acute distress. HEAD: Normal with no signs of trauma. EYES: Pupils equal, round and reactive to light, extraocular movements intact, sclera anicteric, conjunctiva clear. No lid lag. EARS, NOSE, THROAT: Ears normal, nares patent, oropharynx clear without exudates. Moist mucous membranes. NECK: Normal range of motion, supple without lymphadenopathy, JVD, or masses. LUNGS: diminished right lower lobe compared to left, diminished upper lobes. tolerating room air HEART: Regular rate and rhythm ABDOMEN: Soft, nontender, not distended, normoactive bowel sounds, no guarding, no rebound, no masses. No hepatomegaly or splenomegaly. SCROTUM: scrotal edema with mild erythema MUSCULOSKELETAL: No CVA tenderness. UPPER EXTREMITIES: No peripheral edema. LOWER EXTREMITIES: +2 peripheral edema bilaterally SKIN: self inflicted scratches on bilateral lower ext. Laboratory Results - last 24 hr 10/28/19 10/28/19 10/28/19 14:26 21:00 21:00 WBC RBC Hgb Hct MCV MCH MCHC RDW Plt Count MPV Absolute Neuts (auto) Neutrophils % Lymphocytes % Monocytes % Eosinophils % Basophils % Nucleated RBC % PT with INR 14.30 H INR 1.21 H PTT (Actin FS) 35.5 Sodium 141 Potassium 4.2 Chloride 110 H Carbon Dioxide 21 Anion Gap 10 BUN 21.6 H Creatinine 1.7 H Est GFR (CKD-EPI)AfAm 49.70 Est GFR (CKD-EPI)NonAf 42.88 POC Glucometer Random Glucose 172 H Hemoglobin A1c % Calcium 8.3 L Magnesium 1.7 L Total Bilirubin 0.7 AST 29 ALT 29 Alkaline Phosphatase 105 Creatine Kinase 204 185 Creatine Kinase Index 11.1 H 9.1 H CK-MB (CK-2) 22.7 H 16.9 H Troponin I 0.18 H 0.21 H Total Protein 6.4 Albumin 3.1 L Triglycerides 78 Cholesterol 150 Total LDL Cholesterol 89 HDL Cholesterol 49 TSH Stool Occult Blood 10/28/19 10/29/19 10/29/19 21:01 02:20 05:38 WBC RBC Hgb Hct MCV MCH MCHC RDW Plt Count MPV Absolute Neuts (auto) Neutrophils % Lymphocytes % Monocytes % Eosinophils % Basophils % Nucleated RBC % PT with INR INR PTT (Actin FS) Sodium Potassium Chloride Carbon Dioxide Anion Gap BUN Creatinine Est GFR (CKD-EPI)AfAm Est GFR (CKD-EPI)NonAf POC Glucometer 164 168 Random Glucose Hemoglobin A1c % Calcium Magnesium Total Bilirubin AST ALT Alkaline Phosphatase Creatine Kinase 151 Creatine Kinase Index 8.6 H CK-MB (CK-2) 13.0 H Troponin I 0.23 H Total Protein Albumin Triglycerides Cholesterol Total LDL Cholesterol HDL Cholesterol TSH Stool Occult Blood 10/29/19 10/29/19 10/29/19 05:47 05:47 05:47 WBC 7.3 RBC 3.91 L Hgb 11.6 L Hct 34.8 L MCV 89.0 MCH 29.7 MCHC 33.4 RDW 14.8 Plt Count 243 MPV 8.9 Absolute Neuts (auto) 4.4 Neutrophils % 60.7 Lymphocytes % 25.8 D Monocytes % 10.3 H Eosinophils % 2.1 Basophils % 1.1 Nucleated RBC % 0 PT with INR INR PTT (Actin FS) Sodium 141 Potassium 4.4 Chloride 109 H Carbon Dioxide 24 Anion Gap 8 BUN 25.1 H Creatinine 2.0 H Est GFR (CKD-EPI)AfAm 40.83 Est GFR (CKD-EPI)NonAf 35.23 POC Glucometer Random Glucose 162 H Hemoglobin A1c % 8.8 H Calcium 8.6 Magnesium 2.0 Total Bilirubin 0.9 AST 24 ALT 27 Alkaline Phosphatase 96 Creatine Kinase Creatine Kinase Index CK-MB (CK-2) Troponin I Total Protein 6.0 L Albumin 2.9 L Triglycerides 73 Cholesterol 143 Total LDL Cholesterol 84 HDL Cholesterol 44 TSH 2.80 D Stool Occult Blood 10/29/19 10/29/19 10/29/19 05:47 09:35 12:00 WBC RBC Hgb Hct MCV MCH MCHC RDW Plt Count MPV Absolute Neuts (auto) Neutrophils % Lymphocytes % Monocytes % Eosinophils % Basophils % Nucleated RBC % PT with INR INR PTT (Actin FS) 44.8 H Sodium Potassium Chloride Carbon Dioxide Anion Gap BUN Creatinine Est GFR (CKD-EPI)AfAm Est GFR (CKD-EPI)NonAf POC Glucometer 197 Random Glucose Hemoglobin A1c % Calcium Magnesium Total Bilirubin AST ALT Alkaline Phosphatase Creatine Kinase Creatine Kinase Index CK-MB (CK-2) Troponin I Total Protein Albumin Triglycerides Cholesterol Total LDL Cholesterol HDL Cholesterol TSH Stool Occult Blood Negative 10/29/19 10/29/19 16:25 17:13 WBC RBC Hgb Hct MCV MCH MCHC RDW Plt Count MPV Absolute Neuts (auto) Neutrophils % Lymphocytes % Monocytes % Eosinophils % Basophils % Nucleated RBC % PT with INR INR PTT (Actin FS) 46.3 H Sodium Potassium Chloride Carbon Dioxide Anion Gap BUN Creatinine Est GFR (CKD-EPI)AfAm Est GFR (CKD-EPI)NonAf POC Glucometer 154 Random Glucose Hemoglobin A1c % Calcium Magnesium Total Bilirubin AST ALT Alkaline Phosphatase Creatine Kinase Creatine Kinase Index CK-MB (CK-2) Troponin I Total Protein Albumin Triglycerides Cholesterol Total LDL Cholesterol HDL Cholesterol TSH Stool Occult Blood Active Medications Generic Name Dose Route Start Last Admin Trade Name Freq PRN Reason Stop Dose Admin Acetaminophen 650 mg 10/28/19 18:52 Tylenol - PO Q6H PRN PAIN LEVEL 4 - 6 Albuterol/Ipratropium 1 amp 10/28/19 18:49 Duoneb - NEB Q6H PRN SHORTNESS OF BREATH Clopidogrel Bisulfate 75 mg 10/29/19 13:30 10/29/19 14:36 Plavix - PO 75 mg DAILY RUSSEL Administration Furosemide 40 mg 10/29/19 06:00 10/29/19 14:36 Lasix Injection - IVPUSH 40 mg BID@0600,1400 RUSSEL Administration Heparin Sodium (Porcine) 1,000 unit 10/29/19 00:10 10/29/19 09:11 Heparin - IVPUSH 1,000 unit PRN PRN Administration Heparin Heparin Sodium (Porcine) 5,000 unit 10/29/19 00:10 Heparin - IVPUSH PRN PRN Heparin Ceftriaxone Sodium 1 gm/ 50 mls @ 100 mls/hr 10/29/19 10:00 10/29/19 09:10 Dextrose IVPB 100 mls/hr DAILY RUSSEL Administration Protocol Heparin Sodium (Porcine) 25, 500 mls @ 20 mls/hr 10/29/19 00:15 10/29/19 09: 10 000 unit/ Sodium Chloride IV 1,100 unit/hr TITR RUSSEL 22 mls/hr Titration Protocol 1,000 UNIT/HR Insulin Aspart 1 vial 10/28/19 22:00 10/29/19 12:11 Novolog Vial Sliding Scale - SQ 2 unit ACHS RUSSEL Administration Protocol Metoprolol Tartrate 50 mg 10/28/19 18:22 10/29/19 09:10 Lopressor - PO 50 mg BID RUSSEL Administration Metoprolol Tartrate 5 mg 10/29/19 00:11 Lopressor Injection - IVPUSH Q4H PRN TACHYCARDIA ASSESSMENT/PLAN: Problem List - Problems (1) Elevated troponin Assessment/Plan: TNI 0.18-->0.21; CK elevated patient no further chest pain but had episode of SVT overnight, started on heparin gtt and atorvastatin 80mg EKG: PSVT with Qs inferiorly; now in sinus tachycardia. Elevated BNP; on lasix bid On Plavix 75mg daily on metoprolol 50mg bid with IV push for tachycardia monitor electrolytes to keep mag and K within normal limits BP better controlled on current meds ECHO LVH nl ef Coronary artery evaluation (stress test and/or coronary angiogram) when stable. Code(s): R79.89 - OTHER SPECIFIED ABNORMAL FINDINGS OF BLOOD CHEMISTRY (2) Chest pain Assessment/Plan: trend troponins, on nitrostat patch start on metoprolol 50mg tartrate bid echo pending cardiology following Code(s): R07.9 - CHEST PAIN, UNSPECIFIED (3) Hypertensive emergency Assessment/Plan: given nitrostat on metroplol 50 bid hold off on an ARB/luz as patient has acute elissa bp more stable Code(s): I16.1 - HYPERTENSIVE EMERGENCY (4) Elevated brain natriuretic peptide (BNP) level Assessment/Plan: bnk 25k, echo reviewed patient with scrotal edema, lower ext edema and orthpenea daily weights, monitor intake and output lasix 40 iv bid Code(s): R79.89 - OTHER SPECIFIED ABNORMAL FINDINGS OF BLOOD CHEMISTRY (5) ELISSA (acute kidney injury) Assessment/Plan: creatinine above baseline of 1.1, currently 1.7 in the setting of uncontrolled blood pressure given lasix 40mg iv in the ED will continue BID 40mg iv dosing monitor renal function, if worsening will order renal u/s and consult renal speciality renal dose meds Code(s): N17.9 - ACUTE KIDNEY FAILURE, UNSPECIFIED (6) Diastolic CHF Code(s): I50.30 - UNSPECIFIED DIASTOLIC (CONGESTIVE) HEART FAILURE (7) Shortness of breath Assessment/Plan: tolerating room air has+ orthopnea in the setting of acute chf exacerbation Code(s): R06.02 - SHORTNESS OF BREATH (8) UTI (urinary tract infection) Assessment/Plan: UTI seen on UA UC pending on ceftriaxone Code(s): N39.0 - URINARY TRACT INFECTION, SITE NOT SPECIFIED (9) DVT prophylaxis Assessment/Plan: on heparin gtt Code(s): Z29.9 - ENCOUNTER FOR PROPHYLACTIC MEASURES, UNSPECIFIED Visit type - Emergency Visit Emergency Visit: Yes ED Registration Date: 10/28/19 Care time: The patient presented to the Emergency Department on the above date and was hospitalized for further evaluation of their emergent condition. - New Patient This patient is new to me today: No - Critical Care Critical Care patient: No - Discharge Referral Referred to [facility] Med P.C.: No
[2019-10-29] MEDS ORDERED: INSULIN SLIDING SCALE (NOVOLOG) 1 VIAL SQ ONE (20:07)
[2019-10-29] MEDS ORDERED: PT OWN MED DRAWER 7, Y5N ONE ×2 (20:07→23:29)
[2019-10-29] MEDS: ATORVASTATIN CA 80 MG TABLET (FP) PO SCH (22:08)
[2019-10-30] MEDS: HEPARIN - 25,000 UNIT in SODIUM CHLORIDE 495 ML IV SCH (03:32)
[2019-10-30] MEDS: FUROSEMIDE 40 MG/4 ML INJECTABLE VIAL IVPUSH SCH (06:33)
[2019-10-30] MEDS: INSULIN SLIDING SCALE (NOVOLOG) 1 VIAL SQ SCH ×4 (07:33→21:48)
[2019-10-30] MEDS ORDERED: cefTRIAXone SODIUM 1 GM VIAL ONE (09:18)
[2019-10-30] MEDS ORDERED: DEXTROSE 5%-WATER - 50 ML IVPB ONE (09:18)
[2019-10-30] MEDS: CEFTRIAXONE 1 GM in DEXTROSE 5%-WATER - 50 ML IVPB SCH (09:50)
[2019-10-30] MEDS: CLOPIDOGREL BISULFATE 75 MG TABLET (FP) PO SCH (09:51)
[2019-10-30] MEDS: METOPROLOL TARTRATE 50 MG TABLET (FP) PO SCH ×2 (09:51→21:02)
[2019-10-30 10:31] LABS: BASO % 1.3 % (0-2.0); EOS % 5.3 % (0-4.5); HEMATOCRIT 37.3 % (35.4-49); HEMOGLOBIN 12.5 GM/dL (11.7-16.9); LYMPH % 30.9 % (8-40); MCH 29.8 pg (25.7-33.7); MCHC 33.5 g/dl (32.0-35.9); MEAN CELL VOLUME 88.8 fl (80-96); MEAN PLT VOLUME 9.3 fl (7.5-11.1); MONO % 11.5 % (3.8-10.2); PLATELET COUNT 250 K/MM3 (134-434); RDW 14.4 % (11.9-15.9); WHITE BLOOD COUNT 7.4 K/mm3 (4.0-10.0)
[2019-10-30 11:42] LABS: ALBUMIN 3.2 g/dl (3.4-5.0); BILIRUBIN,TOTAL 0.9 mg/dL (0.2-1); BLOOD UREA NITROGEN 31.5 mg/dL (7-18); CALCIUM 8.9 mg/dL (8.5-10.1); CREATININE 2.2 mg/dL (0.55-1.3); MAGNESIUM 1.8 mg/dL (1.8-2.4); POTASSIUM 4.2 mmol/L (3.5-5.1); TOT PROT 6.5 g/dl (6.4-8.2)
--- NOTE | 2019-10-30 12:34 | PN ---
Physical Exam: SUBJECTIVE: Patient seen and examined. feels well, denies shortness of breath or chest pain and denies dizziness. OBJECTIVE: Patient is a 58 year old male with a significant past medical history of diabetes and hypertension. He has not taken any medications for hypertension or diabetes for over 6 months for lack of medical follow up. He has insurance ([employer]) but admits he has not seen a PCP because he felt well and had no issues. He went to see his urologist on 10/28/2019 (Dr. Nathan Blackwell) for scrotal swelling and pain. After being evaluated, he was told to come to the ED for possible CHF exacerbation. Vital Signs Period Temp Pulse Resp BP Sys/Saucedo Pulse Ox Last 24 Hr 98.0 F-98.6 F 71-79 16-18 129-159/75-92 98 GENERAL: Awake, alert, and fully oriented, in no acute distress. HEAD: Normal with no signs of trauma. EYES: Pupils equal, round and reactive to light, extraocular movements intact, sclera anicteric, conjunctiva clear. No lid lag. EARS, NOSE, THROAT: Ears normal, nares patent, oropharynx clear without exudates. Moist mucous membranes. NECK: Normal range of motion, supple without lymphadenopathy, JVD, or masses. LUNGS: diminished right lower lobe compared to left, diminished upper lobes. tolerating room air HEART: Regular rate and rhythm ABDOMEN: Soft, nontender, not distended, normoactive bowel sounds, no guarding, no rebound, no masses. No hepatomegaly or splenomegaly. SCROTUM: scrotal edema with mild erythema MUSCULOSKELETAL: No CVA tenderness. UPPER EXTREMITIES: No peripheral edema. LOWER EXTREMITIES: +2 peripheral edema bilaterally SKIN: self inflicted scratches on bilateral lower ext. Laboratory Results - last 24 hr 10/29/19 10/29/19 10/29/19 16:25 17:13 21:56 WBC RBC Hgb Hct MCV MCH MCHC RDW Plt Count MPV Absolute Neuts (auto) Neutrophils % Lymphocytes % Monocytes % Eosinophils % Basophils % Nucleated RBC % PTT (Actin FS) 46.3 H Sodium Potassium Chloride Carbon Dioxide Anion Gap BUN Creatinine Est GFR (CKD-EPI)AfAm Est GFR (CKD-EPI)NonAf POC Glucometer 154 151 Random Glucose Calcium Magnesium Total Bilirubin AST ALT Alkaline Phosphatase Total Protein Albumin 10/29/19 10/30/19 10/30/19 23:30 05:59 09:50 WBC RBC Hgb Hct MCV MCH MCHC RDW Plt Count MPV Absolute Neuts (auto) Neutrophils % Lymphocytes % Monocytes % Eosinophils % Basophils % Nucleated RBC % PTT (Actin FS) 44.1 H 50.0 H Sodium Potassium Chloride Carbon Dioxide Anion Gap BUN Creatinine Est GFR (CKD-EPI)AfAm Est GFR (CKD-EPI)NonAf POC Glucometer 142 Random Glucose Calcium Magnesium Total Bilirubin AST ALT Alkaline Phosphatase Total Protein Albumin 10/30/19 10/30/19 10/30/19 09:50 09:50 11:57 WBC 7.4 RBC 4.20 Hgb 12.5 Hct 37.3 MCV 88.8 MCH 29.8 MCHC 33.5 RDW 14.4 Plt Count 250 MPV 9.3 Absolute Neuts (auto) 3.8 Neutrophils % 51.0 Lymphocytes % 30.9 Monocytes % 11.5 H Eosinophils % 5.3 H D Basophils % 1.3 Nucleated RBC % 0 PTT (Actin FS) Sodium 138 Potassium 4.2 Chloride 104 Carbon Dioxide 24 Anion Gap 10 BUN 31.5 H Creatinine 2.2 H Est GFR (CKD-EPI)AfAm 36.39 Est GFR (CKD-EPI)NonAf 31.40 POC Glucometer 164 Random Glucose 193 H Calcium 8.9 Magnesium 1.8 Total Bilirubin 0.9 AST 22 ALT 26 Alkaline Phosphatase 104 Total Protein 6.5 Albumin 3.2 L Active Medications Generic Name Dose Route Start Last Admin Trade Name Freq PRN Reason Stop Dose Admin Acetaminophen 650 mg 10/28/19 18:52 Tylenol - PO Q6H PRN PAIN LEVEL 4 - 6 Albuterol/Ipratropium 1 amp 10/28/19 18:49 Duoneb - NEB Q6H PRN SHORTNESS OF BREATH Atorvastatin Calcium 80 mg 10/29/19 22:00 10/29/19 22:08 Lipitor - PO 80 mg HS RUSSEL Administration Clopidogrel Bisulfate 75 mg 10/29/19 13:30 10/30/19 09:51 Plavix - PO 75 mg DAILY RUSSEL Administration Furosemide 40 mg 10/29/19 06:00 10/30/19 06:33 Lasix Injection - IVPUSH 40 mg BID@0600,1400 RUSSEL Administration Heparin Sodium (Porcine) 1,000 unit 10/29/19 00:10 10/29/19 17:31 Heparin - IVPUSH 1,000 unit PRN PRN Administration Heparin Heparin Sodium (Porcine) 5,000 unit 10/29/19 00:10 Heparin - IVPUSH PRN PRN Heparin Ceftriaxone Sodium 1 gm/ 50 mls @ 100 mls/hr 10/29/19 10:00 10/30/19 09:50 Dextrose IVPB 100 mls/hr DAILY RUSSEL Administration Protocol Insulin Aspart 1 vial 10/28/19 22:00 10/30/19 12:16 Novolog Vial Sliding Scale - SQ 2 unit ACHS RUSSEL Administration Protocol Metoprolol Tartrate 50 mg 10/28/19 18:22 10/30/19 09:51 Lopressor - PO 50 mg BID RUSSEL Administration Metoprolol Tartrate 5 mg 10/29/19 00:11 Lopressor Injection - IVPUSH Q4H PRN TACHYCARDIA ASSESSMENT/PLAN: Problem List - Problems (1) Elevated troponin Assessment/Plan: TNI 0.18-->0.21; CK elevated patient no further chest pain heparin drip discontinued. on atorvastatin 80mg On Plavix 75mg daily on metoprolol 50mg bid with IV push for tachycardia monitor electrolytes to keep mag and K within normal limits ECHO LVH nl ef Code(s): R79.89 - OTHER SPECIFIED ABNORMAL FINDINGS OF BLOOD CHEMISTRY (2) Chest pain Assessment/Plan: trend troponins, on nitrostat patch start on metoprolol 50mg tartrate bid BP better controlled on current meds, but remains above goal, ideally would add luz, but has ELISSA currently, therefore will add norvasc 5 for better bp control. cardiology following Code(s): R07.9 - CHEST PAIN, UNSPECIFIED (3) Hypertensive emergency Assessment/Plan: on metroplol 50 bid BP better controlled on current meds, but remains above goal, ideally would add luz, but has ELISSA currently, therefore will add norvasc 5 for better bp control. Code(s): I16.1 - HYPERTENSIVE EMERGENCY (4) Elevated brain natriuretic peptide (BNP) level Assessment/Plan: bnk 25k, echo reviewed patient with scrotal edema, lower ext edema and orthpenea daily weights, monitor intake and output lasix 40 iv bid Code(s): R79.89 - OTHER SPECIFIED ABNORMAL FINDINGS OF BLOOD CHEMISTRY (5) ELISSA (acute kidney injury) Assessment/Plan: creatinine above baseline of 1.1, currently 2.2 lasix decreased to daily lasix 40mg iv push renal following Code(s): N17.9 - ACUTE KIDNEY FAILURE, UNSPECIFIED (6) Diastolic CHF Code(s): I50.30 - UNSPECIFIED DIASTOLIC (CONGESTIVE) HEART FAILURE (7) Shortness of breath Assessment/Plan: tolerating room air has+ orthopnea in the setting of acute chf exacerbation Code(s): R06.02 - SHORTNESS OF BREATH (8) UTI (urinary tract infection) Assessment/Plan: UTI seen on UA UC negative for growth, will d/c ceftriaxone Code(s): N39.0 - URINARY TRACT INFECTION, SITE NOT SPECIFIED (9) DVT prophylaxis Assessment/Plan: heparin bid Code(s): Z29.9 - ENCOUNTER FOR PROPHYLACTIC MEASURES, UNSPECIFIED Visit type - Emergency Visit Emergency Visit: Yes ED Registration Date: 10/28/19 Care time: The patient presented to the Emergency Department on the above date and was hospitalized for further evaluation of their emergent condition. - New Patient This patient is new to me today: No - Critical Care Critical Care patient: No - Discharge Referral Referred to [facility] Med P.C.: No
--- NOTE | 2019-10-30 12:53 | PN ---
Progress Note, Physician Chief Complaint: Pt denies chest pain or dyspnea; his legs feel better (less swollen). No palpitations. 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 Nathan Blackwell, today) with volume overload. No chest pain today; reports orthopnea; no fevers/chills/cough. After being evaluated, he was told to come to the ED for possible CHF exacerbation. Patient endorses chest pain that is intermittent, non radiating. No abd pain. No headache/dizziness, no dysuria or hematuria. Pt has not had these symptoms before. On exam, patient also reports persistent intermittent non radiating mid sternal chest pain that comes and goes but denies any shortness of breath. BP initially recorded as 180/112 mmHg. He was given nitrostat paste in the ED and given pl avix 75 mg. His troponons are elevated at 0.18 (Until the leg swelling began 3 wks ago, he was walking 3-4 miles a day, nearly every day; denies exertional chest pain or dyspnea). - Current Medication List Current Medications: Active Medications Acetaminophen (Tylenol -) 650 mg PO Q6H PRN PRN Reason: PAIN LEVEL 4 - 6 Albuterol/Ipratropium (Duoneb -) 1 amp NEB Q6H PRN PRN Reason: SHORTNESS OF BREATH Atorvastatin Calcium (Lipitor -) 80 mg PO HS [facility] Last Admin: 10/29/19 22:08 Dose: 80 mg Documented by: Clopidogrel Bisulfate (Plavix -) 75 mg PO DAILY RUSSEL Last Admin: 10/30/19 09:51 Dose: 75 mg Documented by: Furosemide (Lasix Injection -) 40 mg IVPUSH BID@0600,1400 RUSSEL Last Admin: 10/30/19 06:33 Dose: 40 mg Documented by: Heparin Sodium (Porcine) (Heparin -) 1,000 unit IVPUSH PRN PRN PRN Reason: Heparin Last Admin: 10/29/19 17:31 Dose: 1,000 unit Documented by: Heparin Sodium (Porcine) (Heparin -) 5,000 unit IVPUSH PRN PRN PRN Reason: Heparin Ceftriaxone Sodium 1 gm/ (Dextrose) 50 mls @ 100 mls/hr IVPB DAILY [facility]; Prot ocol Last Admin: 10/30/19 09:50 Dose: 100 mls/hr Documented by: Insulin Aspart (Novolog Vial Sliding Scale -) 1 vial SQ ACHS [facility]; Protocol Last Admin: 10/30/19 12:16 Dose: 2 unit Documented by: Metoprolol Tartrate (Lopressor -) 50 mg PO BID RUSSEL Last Admin: 10/30/19 09:51 Dose: 50 mg Documented by: Metoprolol Tartrate (Lopressor Injection -) 5 mg IVPUSH Q4H PRN PRN Reason: TACHYCARDIA - Objective Vital Signs: Vital Signs Temperature 98.1 F 10/30/19 06:00 Pulse Rate 79 10/30/19 09:47 Respiratory Rate 18 10/30/19 09:47 Blood Pressure 157/92 10/30/19 09:47 O2 Sat by Pulse Oximetry (%) 98 10/29/19 21:00 Constitutional: Yes: Calm Eyes: Yes: WNL HENT: Yes: WNL Neck: Yes: WNL Cardiovascular: Yes: S1, S2, S4 Respiratory: Yes: WNL Gastrointestinal: Yes: WNL ...Rectal Exam: Yes: Deferred Genitourinary: No: Anuria Breast(s): Yes: WNL Musculoskeletal: Yes: Joint Stiffness, Muscle Weakness Extremities: Yes: Cool Edema: Yes Edema: LLE: 1+, RLE: 1+ Peripheral Pulses WNL: Yes Integumentary: Yes: Venous Stasis Changes Neurological: Yes: WNL Psychiatric: Yes: Alert, Oriented, Other (anxiety) Labs: CBC, BMP 10/30/19 09:50 10/30/19 09:50 INR, PTT INR 1.21 (0.83-1.09) H 10/28/19 21:00 - ....Imaging Chest X-ray: Image Reviewed EKG: Image Reviewed Problem List - Problems (1) Chest pain Assessment/Plan: TNI 0.18-->0.21; CK elevated, with MB relative index 11. EKG: PSVT with Qs inferiorly; now in sinus tachycardia. TSH WNL. Elevated BNP; no acute piulmonary process on CXR. ELISSA. Allergic to ASA clopidogrel 75 mg; and daily. Add IV heparin. Atorvastatin 80 mg now and daily until etiology of elevated TNI determined. On metoprolol tartrate 50 mg bid; IVP 5 mg prn for elevated HR, BP, PSVT. Replete Mg, and keep 2.0-2.4 BP control is crucial (initially 182/112 mmHg). ECHO: normal LVEF Coronary artery evaluation (stress test and/or coronary angiogram) when stable. Code(s): R07.9 - CHEST PAIN, UNSPECIFIED (2) Diastolic CHF Code(s): I50.30 - UNSPECIFIED DIASTOLIC (CONGESTIVE) HEART FAILURE (3) Edema Assessment/Plan: bilateral 2 + pitting LE edema to knees. scrotal edema and erythema. CXR: no acute infiltrate. On IV furosemide; f/u BUN/Cr, electrolytes, daily weight, Is and Os. Code(s): R60.9 - EDEMA, UNSPECIFIED (4) Elevated brain natriuretic peptide (BNP) level Assessment/Plan: Diastolic CHF. Code(s): R79.89 - OTHER SPECIFIED ABNORMAL FINDINGS OF BLOOD CHEMISTRY (5) Elevated troponin Assessment/Plan: Elevated TNI, with CKMB relative index > 5. No further chest pain. ASA and clopidogrel. On metoprolol. Nitrates prn. ACEI if BUN/Cr, electrolytes allow. Plan for coronary artery evaluation when stable. Code(s): R79.89 - OTHER SPECIFIED ABNORMAL FINDINGS OF BLOOD CHEMISTRY (6) UTI (urinary tract infection) Code(s): N39.0 - URINARY TRACT INFECTION, SITE NOT SPECIFIED (7) PSVT (paroxysmal supraventricular tachycardia) Assessment/Plan: Now in NSR. ACS. On metoprolol for HR control. ECHO: normal LVEF; severe LVH. Telemetry monitoring Maintain electrolytes WNL. Avoid excessive dehydration. Coronary artery evaluation when stable. Holter monitor; loop recorder (outpt). Code(s): I47.1 - SUPRAVENTRICULAR TACHYCARDIA
[2019-10-30 13:50] LABS: BLOOD UREA NITROGEN 33.5 mg/dL (7-18); CREATININE 2.3 mg/dL (0.55-1.3); POTASSIUM 4.3 mmol/L (3.5-5.1)
--- NOTE | 2019-10-30 13:59 | EKG ---
Test Reason : Blood Pressure : / mmHG Vent. Rate : 076 BPM Atrial Rate : 076 BPM P-R Int : 168 ms QRS Dur : 096 ms QT Int : 410 ms P-R-T Axes : 048 -51 127 degrees QTc Int : 461 ms NORMAL SINUS RHYTHM LEFT ANTERIOR FASCICULAR BLOCK CANNOT RULE OUT INFERIOR INFARCT (CITED ON OR BEFORE 28-OCT-2019) ANTERIOR INFARCT (CITED ON OR BEFORE 26-OCT-2016) T WAVE ABNORMALITY, CONSIDER LATERAL ISCHEMIA ABNORMAL ECG WHEN COMPARED WITH ECG OF 28-OCT-2019 23:55, PREMATURE VENTRICULAR COMPLEXES ARE NO LONGER PRESENT SERIAL CHANGES OF ANTERIOR INFARCT PRESENT Confirmed by KALEB SPRING MD ([id number]) on 10/30/2019 1:58:31 PM Referred By: ELVI RODRIGUEZ Confirmed By:KALEB SPRING MD
--- NOTE | 2019-10-30 14:11 | CONSULT ---
Consult Consult Specialty:: Nephrology Reason for Consultation:: ELISSA - History of Present Illness Chief Complaint: edema History of Present Illness: Pt is a 58 year old male with pmhx of DM, hld, cataracts, and HTN who presents to the ER with lower ext edema. He also complains of scrotal edema. He has not followed with a primary in over a years. He was found to have elevated creatinine and I was called to evaluate him. He denies shortness of breath at the moment. He feels that his exercise capacity is decreased. He used to be able to walk about 3 miles however he is down to half a mile. He has to stop secondary to shortness of breath. He denies chest pain. He denies dysuria or hematuria. He denies fevers or chills. - History Source History Provided By: Patient, Medical Record - Past Medical History Cardio/Vascular: Yes: CHF (diastolic (ECHO 2017)), HTN Endocrine: Yes: Diabetes Mellitus - Past Surgical History Past Surgical History: Yes: Cataract Removal - Alcohol/Substance Use Hx Alcohol Use: No - Smoking History Smoking history: Never smoked Have you smoked in the past 12 months: No - Social History Usual Living Arrangement: With Spouse Home Medications - Allergies Allergies/Adverse Reactions: Allergies Allergy/AdvReac Type Severity Reaction Status Date / Time aspirin Allergy Severe Abdominal Verified 10/28/19 13:48 pain egg Allergy Severe Violently Verified 10/28/19 13:48 ill, vomiting tomato Allergy Severe Violently Verified 10/28/19 13:48 ill, vomiting - Home Medications Home Medications: Ambulatory Orders Latanoprost 0.005% Eye Drops [Xalatan 0.005% Eye Drops -] 1 drop HS 11/09/16 Ramipril 2.5 mg PO DAILY 11/09/16 metFORMIN HCL [Metformin HCl] 500 mg PO BID 11/09/16 Cholecalciferol (Vitamin D3) [Vitamin D3] 2,000 unit PO 2 daily tablet 11/14/16 Ibuprofen [Motrin -] 600 mg PO TID PRN #21 tablet 02/10/17 Lidocaine 5% Patch [Lidoderm Patch -] 1 patch TP DAILY PRN #30 patch 02/10/17 Methocarbamol [Robaxin -] 500 mg PO TID PRN #21 tablet 02/10/17 Acetaminophen 1,000 mg PO Q4HWA #20 liquid 05/26/19 Family Medical History Family History: Denies Review of Systems - Review of Systems Constitutional: reports: Malaise Eyes: reports: No Symptoms HENT: reports: No Symptoms Cardiovascular: reports: Edema, Shortness of Breath Respiratory: reports: SOB, SOB on Exertion Gastrointestinal: reports: No Symptoms Genitourinary: reports: No Symptoms Musculoskeletal: reports: No Symptoms Integumentary: reports: No Symptoms Neurological: reports: No Symptoms Endocrine: reports: No Symptoms Hematology/Lymphatic: reports: No Symptoms Psychiatric: reports: No Symptoms Physical Exam Vital Signs: Vital Signs Temperature 98.1 F 10/30/19 06:00 Pulse Rate 79 10/30/19 09:47 Respiratory Rate 18 10/30/19 09:47 Blood Pressure 157/92 10/30/19 09:47 O2 Sat by Pulse Oximetry (%) 98 10/29/19 21:00 Constitutional: Yes: Calm Eyes: Yes: Conjunctiva Clear HENT: Yes: Atraumatic Neck: Yes: Supple Cardiovascular: Yes: S1, S2 Respiratory: Yes: CTA Bilaterally Gastrointestinal: Yes: Normal Bowel Sounds, Soft Renal/: Yes: Scrotal Edema Edema: Yes Edema: LLE: 2+, RLE: 2+ Neurological: Yes: Oriented Psychiatric: Yes: Oriented Labs: CBC, BMP 10/30/19 09:50 10/30/19 12:17 Laboratory Tests 10/26/16 10/26/16 11/13/16 14:53 16:20 08:12 WBC Hgb Plt Count Sodium Potassium Chloride BUN Creatinine 1.0 1.1 Urine Protein 1+ H Urine Blood 10/28/19 10/28/19 10/29/19 14:26 14:30 05:47 WBC Hgb Plt Count Sodium Potassium Chloride BUN Creatinine 1.7 H 2.0 H Urine Protein 4+ H Urine Blood 2+ H 10/30/19 10/30/19 10/30/19 09:50 09:50 12:17 WBC 7.4 Hgb 12.5 Plt Count 250 Sodium 139 Potassium 4.3 Chloride 104 BUN 33.5 H Creatinine 2.2 H 2.3 H Urine Protein Urine Blood Imaging - Results Chest X-ray: Report Reviewed Problem List - Problems (1) ELISSA (acute kidney injury) Code(s): N17.9 - ACUTE KIDNEY FAILURE, UNSPECIFIED (2) Diastolic CHF Code(s): I50.30 - UNSPECIFIED DIASTOLIC (CONGESTIVE) HEART FAILURE (3) Edema Code(s): R60.9 - EDEMA, UNSPECIFIED Assessment/Plan Current Medications Generic Name Dose Route Start Last Admin Trade Name Lexa PRN Reason Stop Dose Admin Acetaminophen 650 mg 10/28/19 18:52 Tylenol - PO Q6H PRN PAIN LEVEL 4 - 6 Albuterol/Ipratropium 1 amp 10/28/19 18:49 Duoneb - NEB Q6H PRN SHORTNESS OF BREATH Atorvastatin Calcium 80 mg 10/29/19 22:00 10/29/19 22:08 Lipitor - PO 80 mg HS RUSSEL Administration Clopidogrel Bisulfate 75 mg 10/29/19 13:30 10/30/19 09:51 Plavix - PO 75 mg DAILY RUSSEL Administration Furosemide 40 mg 10/31/19 10:00 Lasix Injection - IVPUSH DAILY [facility] Heparin Sodium (Porcine) 1,000 unit 10/29/19 00:10 10/29/19 17:31 Heparin - IVPUSH 1,000 unit PRN PRN Administration Heparin Heparin Sodium (Porcine) 5,000 unit 10/29/19 00:10 Heparin - IVPUSH PRN PRN Heparin Ceftriaxone Sodium 1 gm/ 50 mls @ 100 mls/hr 10/29/19 10:00 10/30/19 09:50 Dextrose IVPB 100 mls/hr DAILY RUSSEL Administration Protocol Insulin Aspart 1 vial 10/28/19 22:00 10/30/19 12:16 Novolog Vial Sliding Scale - SQ 2 unit ACHS RUSSEL Administration Protocol Metoprolol Tartrate 50 mg 10/28/19 18:22 10/30/19 09:51 Lopressor - PO 50 mg BID RUSSEL Administration Metoprolol Tartrate 5 mg 10/29/19 00:11 Lopressor Injection - IVPUSH Q4H PRN TACHYCARDIA Laboratory Tests 10/29/19 05:47 Hemoglobin A1c % 8.8 H Impression 1. ELISSA 2. proteinuria 3. HTN 4. DM 5. CHF diastolic 6. hld Plan - cont lasix, decrease dose - repeat labs in am - lehr loader is rising - check prt to lehr loader ratio - would like to start luz however lehr loader is rising, luz or arb will help with proteinuria as well - uncontrolled DM and HTN can cause renal findings - will add hydralazine for now - renal ultrasound
[2019-10-30] MEDS: hydrALAZINE HCL 10 MG TABLET PO SCH ×2 (14:48→21:01)
[2019-10-30] MEDS: ATORVASTATIN CA 80 MG TABLET (FP) PO SCH (21:01)
[2019-10-30] MEDS: HEPARIN NA (PORCINE) 5,000 UNITS/ML 1ML VIAL SQ SCH (21:01)
[2019-10-30] MEDS: LATANOPROST 0.005% OPHTH SOLN 2.5ML BOTTLE OS SCH (21:05)
[2019-10-31] MEDS: INSULIN SLIDING SCALE (NOVOLOG) 1 VIAL SQ SCH ×4 (06:11→22:02)
[2019-10-31 06:47] LABS: HEMATOCRIT 35.2 % (35.4-49); MCH 30.1 pg (25.7-33.7); MCHC 34.1 g/dl (32.0-35.9); MEAN CELL VOLUME 88.3 fl (80-96); MEAN PLT VOLUME 9.2 fl (7.5-11.1); PLATELET COUNT 243 K/MM3 (134-434); RBC 3.99 M/mm3 (4.00-5.60); RDW 14.4 % (11.9-15.9); WHITE BLOOD COUNT 7.4 K/mm3 (4.0-10.0)
[2019-10-31 07:15] LABS: BILIRUBIN,TOTAL 0.7 mg/dL (0.2-1); BLOOD UREA NITROGEN 39.8 mg/dL (7-18); CALCIUM 8.8 mg/dL (8.5-10.1); CREATININE 2.2 mg/dL (0.55-1.3); POTASSIUM 4.2 mmol/L (3.5-5.1); TOT PROT 6.2 g/dl (6.4-8.2)
[2019-10-31] MEDS ORDERED: amLODIPine BESYLATE 5 MG TABLET (FP) PO SCH (10:00)
[2019-10-31] MEDS: hydrALAZINE HCL 10 MG TABLET PO SCH ×2 (10:12→22:01)
[2019-10-31] MEDS ORDERED: REGADENOSON 0.4 MG/5 ML PRE-FILLED SYRINGE IVPUSH ONE ×2 (10:46→11:00)
[2019-10-31] MEDS: CLOPIDOGREL BISULFATE 75 MG TABLET (FP) PO SCH (14:09)
[2019-10-31] MEDS: METOPROLOL TARTRATE 50 MG TABLET (FP) PO SCH ×2 (14:09→22:01)
[2019-10-31] MEDS: HEPARIN NA (PORCINE) 5,000 UNITS/ML 1ML VIAL SQ SCH ×2 (14:09→22:01)
[2019-10-31] MEDS: FUROSEMIDE 40 MG/4 ML INJECTABLE VIAL IVPUSH SCH (14:09)
--- NOTE | 2019-10-31 16:01 | PN ---
Progress Note, Physician History of Present Illness: Pt seen and examined at bedside. He just returned from his stress test. He feels well. - Current Medication List Current Medications: Active Medications Acetaminophen (Tylenol -) 650 mg PO Q6H PRN PRN Reason: PAIN LEVEL 4 - 6 Albuterol/Ipratropium (Duoneb -) 1 amp NEB Q6H PRN PRN Reason: SHORTNESS OF BREATH Amlodipine Besylate (Norvasc -) 5 mg PO DAILY [facility] Last Admin: 10/31/19 10:12 Dose: 5 mg Documented by: Atorvastatin Calcium (Lipitor -) 80 mg PO [facility] Last Admin: 10/30/19 21:01 Dose: 80 mg Documented by: Clopidogrel Bisulfate (Plavix -) 75 mg PO DAILY [facility] Last Admin: 10/31/19 14:09 Dose: 75 mg Documented by: Furosemide (Lasix Injection -) 40 mg IVPUSH DAILY [facility] Last Admin: 10/31/19 14:09 Dose: 40 mg Documented by: Heparin Sodium (Porcine) (Heparin -) 5,000 unit SQ BID [facility] Last Admin: 10/31/19 14:09 Dose: 5,000 unit Documented by: Hydralazine HCl (Apresoline -) 10 mg PO BID [facility] Last Admin: 10/31/19 10:12 Dose: 10 mg Documented by: Insulin Aspart (Novolog Vial Sliding Scale -) 1 vial SQ [facility]; Protocol Last Admin: 10/31/19 14:19 Dose: Not Given Documented by: Latanoprost (Xalatan 0.005% Eye Drops -) 1 drop OS [facility] Last Admin: 10/30/19 21:05 Dose: 1 drop Documented by: Metoprolol Tartrate (Lopressor -) 50 mg PO BID [facility] Last Admin: 10/31/19 14:09 Dose: 50 mg Documented by: Metoprolol Tartrate (Lopressor Injection -) 5 mg IVPUSH Q4H PRN PRN Reason: TACHYCARDIA - Objective Vital Signs: Vital Signs Temperature 97.9 F 10/31/19 15:14 Pulse Rate 88 10/31/19 15:14 Respiratory Rate 16 10/31/19 15:14 Blood Pressure 160/76 10/31/19 15:14 O2 Sat by Pulse Oximetry (%) 98 10/31/19 09:00 Constitutional: Yes: Calm Eyes: Yes: Conjunctiva Clear HENT: Yes: Atraumatic Neck: Yes: Supple Cardiovascular: Yes: S1, S2 Respiratory: Yes: CTA Bilaterally Gastrointestinal: Yes: Normal Bowel Sounds, Soft Genitourinary: Yes: WNL Musculoskeletal: Yes: WNL Edema: Yes Edema: LLE: 1+, RLE: 1+ Neurological: Yes: Oriented Psychiatric: Yes: Oriented Labs: CBC, BMP 10/31/19 05:40 10/31/19 05:40 INR, PTT INR 1.21 (0.83-1.09) H 10/28/19 21:00 Problem List - Problems (1) ELISSA (acute kidney injury) Code(s): N17.9 - ACUTE KIDNEY FAILURE, UNSPECIFIED (2) Diastolic CHF Code(s): I50.30 - UNSPECIFIED DIASTOLIC (CONGESTIVE) HEART FAILURE (3) Edema Code(s): R60.9 - EDEMA, UNSPECIFIED Assessment/Plan Current Medications Generic Name Dose Route Start Last Admin Trade Name Freq PRN Reason Stop Dose Admin Acetaminophen 650 mg 10/28/19 18:52 Tylenol - PO Q6H PRN PAIN LEVEL 4 - 6 Albuterol/Ipratropium 1 amp 10/28/19 18:49 Duoneb - NEB Q6H PRN SHORTNESS OF BREATH Amlodipine Besylate 5 mg 10/31/19 10:00 10/31/19 10:12 Norvasc - PO 5 mg DAILY RUSSEL Administration Atorvastatin Calcium 80 mg 10/29/19 22:00 10/30/19 21:01 Lipitor - PO 80 mg HS RUSSEL Administration Clopidogrel Bisulfate 75 mg 10/29/19 13:30 10/31/19 14:09 Plavix - PO 75 mg DAILY RUSSEL Administration Furosemide 40 mg 10/31/19 10:00 10/31/19 14:09 Lasix Injection - IVPUSH 40 mg DAILY RUSSEL Administration Heparin Sodium (Porcine) 5,000 unit 10/30/19 22:00 10/31/19 14:09 Heparin - SQ 5,000 unit BID RUSSEL Administration Hydralazine HCl 10 mg 10/30/19 14:18 10/31/19 10:12 Apresoline - PO 10 mg BID RUSSEL Administration Insulin Aspart 1 vial 10/28/19 22:00 10/31/19 14:19 Novolog Vial Sliding Scale - SQ Not Given ACHS [facility] Protocol Latanoprost 1 drop 10/30/19 22:00 10/30/19 21:05 Xalatan 0.005% Eye Drops - OS 1 drop HS RUSSEL Administration Metoprolol Tartrate 50 mg 10/28/19 18:22 10/31/19 14:09 Lopressor - PO 50 mg BID RUSSEL Administration Metoprolol Tartrate 5 mg 10/29/19 00:11 Lopressor Injection - IVPUSH Q4H PRN TACHYCARDIA Impression 1. ELISSA 2. proteinuria 3. HTN 4. DM 5. CHF diastolic 6. hld Plan - cont lasix - monitor bp after meds - if bagel maker continues to improved will start low dose luz - follow stress results - check prt to bagel maker ratio - uncontrolled DM and HTN can cause renal findings - renal ultrasound reviewed
--- NOTE | 2019-10-31 16:17 | PN ---
Physical Exam: SUBJECTIVE: Patient seen and examined at the bedside. in no acute distress. had stress test today. OBJECTIVE: Patient is a 58 year old male with a significant past medical history of diabetes and hypertension. He has not taken any medications for hypertension or diabetes for over 6 months for lack of medical follow up. He has insurance ([employer]) but admits he has not seen a PCP because he felt well and had no issues. He went to see his urologist on 10/28/2019 (Dr. Nathan Blackwell) for scrotal swelling and pain. After being evaluated, he was told to come to the ED for possible CHF exacerbation. can be discharged over the weekend, if bp continues to improves will need to follow up an outpatient Vital Signs Period Temp Pulse Resp BP Sys/Saucedo Pulse Ox Last 24 Hr 97.9 F-98.8 F 71-88 16-18 142-160/76-101 96-98 GENERAL: Awake, alert, and fully oriented, in no acute distress. HEAD: Normal with no signs of trauma. EYES: Pupils equal, round and reactive to light, extraocular movements intact, sclera anicteric, conjunctiva clear. No lid lag. EARS, NOSE, THROAT: Ears normal, nares patent, oropharynx clear without exudates. Moist mucous membranes. NECK: Normal range of motion, supple without lymphadenopathy, JVD, or masses. LUNGS: diminished right lower lobe compared to left, diminished upper lobes. tolerating room air HEART: Regular rate and rhythm ABDOMEN: Soft, nontender, not distended, normoactive bowel sounds, no guarding, no rebound, no masses. No hepatomegaly or splenomegaly. SCROTUM: scrotal edema with mild erythema MUSCULOSKELETAL: No CVA tenderness. UPPER EXTREMITIES: No peripheral edema. LOWER EXTREMITIES: +2 peripheral edema bilaterally SKIN: self inflicted scratches on bilateral lower ext. Laboratory Results - last 24 hr 10/30/19 10/30/19 10/31/19 16:42 21:04 05:40 WBC 7.4 RBC 3.99 L Hgb 12.0 Hct 35.2 L MCV 88.3 MCH 30.1 MCHC 34.1 RDW 14.4 Plt Count 243 MPV 9.2 PTT (Actin FS) Sodium Potassium Chloride Carbon Dioxide Anion Gap BUN Creatinine Est GFR (CKD-EPI)AfAm Est GFR (CKD-EPI)NonAf POC Glucometer 132 218 Random Glucose Calcium Total Bilirubin AST ALT Alkaline Phosphatase Total Protein Albumin 10/31/19 10/31/19 10/31/19 05:40 05:40 06:07 WBC RBC Hgb Hct MCV MCH MCHC RDW Plt Count MPV PTT (Actin FS) 35.2 Sodium 141 Potassium 4.2 Chloride 106 Carbon Dioxide 26 Anion Gap 8 BUN 39.8 H Creatinine 2.2 H Est GFR (CKD-EPI)AfAm 36.39 Est GFR (CKD-EPI)NonAf 31.40 POC Glucometer 116 Random Glucose 117 H Calcium 8.8 Total Bilirubin 0.7 AST 20 ALT 21 Alkaline Phosphatase 96 Total Protein 6.2 L Albumin 3.0 L 10/31/19 14:18 WBC RBC Hgb Hct MCV MCH MCHC RDW Plt Count MPV PTT (Actin FS) Sodium Potassium Chloride Carbon Dioxide Anion Gap BUN Creatinine Est GFR (CKD-EPI)AfAm Est GFR (CKD-EPI)NonAf POC Glucometer 131 Random Glucose Calcium Total Bilirubin AST ALT Alkaline Phosphatase Total Protein Albumin Active Medications Generic Name Dose Route Start Last Admin Trade Name Freq PRN Reason Stop Dose Admin Acetaminophen 650 mg 10/28/19 18:52 Tylenol - PO Q6H PRN PAIN LEVEL 4 - 6 Albuterol/Ipratropium 1 amp 10/28/19 18:49 Duoneb - NEB Q6H PRN SHORTNESS OF BREATH Amlodipine Besylate 5 mg 10/31/19 10:00 10/31/19 10:12 Norvasc - PO 5 mg DAILY RUSSEL Administration Atorvastatin Calcium 80 mg 10/29/19 22:00 10/30/19 21:01 Lipitor - PO 80 mg HS RUSSEL Administration Clopidogrel Bisulfate 75 mg 10/29/19 13:30 10/31/19 14:09 Plavix - PO 75 mg DAILY RUSSEL Administration Furosemide 40 mg 10/31/19 10:00 10/31/19 14:09 Lasix Injection - IVPUSH 40 mg DAILY RUSSEL Administration Heparin Sodium (Porcine) 5,000 unit 10/30/19 22:00 10/31/19 14:09 Heparin - SQ 5,000 unit BID RUSSEL Administration Hydralazine HCl 10 mg 10/30/19 14:18 10/31/19 10:12 Apresoline - PO 10 mg BID RUSSEL Administration Insulin Aspart 1 vial 10/28/19 22:00 03/06/20 14:19 Novolog Vial Sliding Scale - SQ Not Given ACHS [facility] Protocol Latanoprost 1 drop 10/30/19 22:00 10/30/19 21:05 Xalatan 0.005% Eye Drops - OS 1 drop HS RUSSEL Administration Metoprolol Tartrate 50 mg 10/28/19 18:22 10/31/19 14:09 Lopressor - PO 50 mg BID RUSSEL Administration Metoprolol Tartrate 5 mg 10/29/19 00:11 Lopressor Injection - IVPUSH Q4H PRN TACHYCARDIA ASSESSMENT/PLAN: Problem List - Problems (1) Elevated troponin Assessment/Plan: TNI 0.18-->0.21; CK elevated patient no further chest pain heparin drip discontinued. on atorvastatin 80mg On Plavix 75mg daily on metoprolol 50mg bid with IV push for tachycardia. started on norvasc and hydralazine negative stress test Code(s): R79.89 - OTHER SPECIFIED ABNORMAL FINDINGS OF BLOOD CHEMISTRY (2) Chest pain Assessment/Plan: trend troponins, on nitrostat patch start on metoprolol 50mg tartrate bid BP better controlled on current meds, but remains above goal, ideally would add luz, but has ELISSA currently, therefore will add norvasc 5 for better bp control. cardiology following Code(s): R07.9 - CHEST PAIN, UNSPECIFIED (3) Hypertensive emergency Assessment/Plan: on metroplol 50 bid BP better controlled on current meds, but remains above goal, ideally would add luz, but has ELISSA currently, therefore will add norvasc 5 and hydralazine for better bp control. Code(s): I16.1 - HYPERTENSIVE EMERGENCY (4) Elevated brain natriuretic peptide (BNP) level Assessment/Plan: bnk 25k, echo reviewed patient with scrotal edema, lower ext edema and orthpenea daily weights, monitor intake and output lasix 40 iv bid Code(s): R79.89 - OTHER SPECIFIED ABNORMAL FINDINGS OF BLOOD CHEMISTRY (5) ELISSA (acute kidney injury) Assessment/Plan: creatinine above baseline of 1.1, currently 2.2 lasix decreased to daily lasix 40mg iv push renal following renal ultrasound, no hydro seen, possible small non obstructing renal stone Code(s): N17.9 - ACUTE KIDNEY FAILURE, UNSPECIFIED (6) Diastolic CHF Code(s): I50.30 - UNSPECIFIED DIASTOLIC (CONGESTIVE) HEART FAILURE (7) Shortness of breath Assessment/Plan: tolerating room air has+ orthopnea in the setting of acute chf exacerbation Code(s): R06.02 - SHORTNESS OF BREATH (8) UTI (urinary tract infection) Assessment/Plan: UTI seen on UA UC negative for growth, d/c ceftriaxone Code(s): N39.0 - URINARY TRACT INFECTION, SITE NOT SPECIFIED (9) DVT prophylaxis Assessment/Plan: heparin bid Code(s): Z29.9 - ENCOUNTER FOR PROPHYLACTIC MEASURES, UNSPECIFIED Visit type - Emergency Visit Emergency Visit: Yes ED Registration Date: 10/28/19 Care time: The patient presented to the Emergency Department on the above date and was hospitalized for further evaluation of their emergent condition. - New Patient This patient is new to me today: No - Critical Care Critical Care patient: No - Discharge Referral Referred to [facility] Med P.C.: No
[2019-10-31] MEDS: ATORVASTATIN CA 80 MG TABLET (FP) PO SCH (22:01)
[2019-10-31] MEDS: LATANOPROST 0.005% OPHTH SOLN 2.5ML BOTTLE OS SCH (22:05)
[2019-11-01] MEDS: INSULIN SLIDING SCALE (NOVOLOG) 1 VIAL SQ SCH ×3 (06:03→17:24)
--- NOTE | 2019-11-01 06:08 | PN ---
Progress Note, Physician Chief Complaint: Pt denies chest pain or dyspnea. 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 Nathan Blackwell, today) with volume overload. No chest pain today; reports orthopnea; no fevers/chills/cough. After being evaluated, he was told to come to the ED for possible CHF exacerbation. Patient endorses chest pain that is intermittent, non radiating. No abd pain. No headache/dizziness, no dysuria or hematuria. Pt has not had these symptoms before. On exam, patient also reports persistent intermittent non radiating mid sternal chest pain that comes and goes but denies any shortness of breath. BP initially recorded as 180/112 mmHg. He was given nitrostat paste in the ED and given plavix 75 mg. His troponons are elevated at 0.18 (Until the leg swelling began 3 wks ago, he was walking 3-4 miles a day, nearly every day; denies exertional chest pain or dyspnea). - Current Medication List Current Medications: Active Medications Acetaminophen (Tylenol -) 650 mg PO Q6H PRN PRN Reason: PAIN LEVEL 4 - 6 Albuterol/Ipratropium (Duoneb -) 1 amp NEB Q6H PRN PRN Reason: SHORTNESS OF BREATH Amlodipine Besylate (Norvasc -) 5 mg PO DAILY [facility] Last Admin: 10/31/19 10:12 Dose: 5 mg Documented by: Atorvastatin Calcium (Lipitor -) 80 mg PO HS [facility] Last Admin: 10/31/19 22:01 Dose: 80 mg Documented by: Clopidogrel Bisulfate (Plavix -) 75 mg PO DAILY [facility] Last Admin: 10/31/19 14:09 Dose: 75 mg Documented by: Furosemide (Lasix Injection -) 40 mg IVPUSH DAILY [facility] Last Admin: 10/31/19 14:09 Dose: 40 mg Documented by: Heparin Sodium (Porcine) (Heparin -) 5,000 unit SQ BID [facility] Last Admin: 10/31/19 22:01 Dose: 5,000 unit Documented by: Hydralazine HCl (Apresoline -) 10 mg PO BID [facility] Last Admin: 10/31/19 22:01 Dose: 10 mg Documented by: Insulin Aspart (Novolog Vial Sliding Scale -) 1 vial SQ [facility]; Protocol Last Admin: 11/01/19 06:03 Dose: Not Given Documented by: Latanoprost (Xalatan 0.005% Eye Drops -) 1 drop OS HS [facility] Last Admin: 10/31/19 22:05 Dose: 1 drop Documented by: Metoprolol Tartrate (Lopressor -) 50 mg PO BID [facility] Last Admin: 10/31/19 22:01 Dose: 50 mg Documented by: Metoprolol Tartrate (Lopressor Injection -) 5 mg IVPUSH Q4H PRN PRN Reason: TACHYCARDIA - Objective Vital Signs: Vital Signs Temperature 97.3 F L 11/01/19 05:53 Pulse Rate 69 11/01/19 05:53 Respiratory Rate 16 11/01/19 05:53 Blood Pressure 137/83 11/01/19 05:53 O2 Sat by Pulse Oximetry (%) 97 10/31/19 21:00 Constitutional: Yes: Calm Eyes: Yes: WNL Cardiovascular: Yes: S1, S2, S4 Labs: CBC, BMP 10/31/19 05:40 10/31/19 05:40 INR, PTT INR 1.21 (0.83-1.09) H 10/28/19 21:00 Problem List - Problems (1) Chest pain Assessment/Plan: TNI 0.18-->0.21; CK elevated, with MB relative index 11. EKG: PSVT with Qs inferiorly; now in sinus tachycardia. TSH WNL. Elevated BNP; no acute piulmonary process on CXR. ELISSA. Allergic to ASA clopidogrel 75 mg; and daily. Add IV heparin. Atorvastatin 80 mg now and daily until etiology of elevated TNI determined. On metoprolol tartrate 50 mg bid; IVP 5 mg prn for elevated HR, BP, PSVT. Replete Mg, and keep 2.0-2.4 BP control is crucial (initially 182/112 mmHg). ECHO: normal LVEF Coronary artery evaluation (stress MIBI) today. Code(s): R07.9 - CHEST PAIN, UNSPECIFIED (2) Diastolic CHF Code(s): I50.30 - UNSPECIFIED DIASTOLIC (CONGESTIVE) HEART FAILURE (3) Edema Assessment/Plan: Improving LE/scrotal swelling. CXR: no acute infiltrate. ECHO: normal LVEF; severe LVH; + diastolic dysfunction. On IV furosemide; f/u BUN/Cr, electrolytes, daily weight, Is and Os. Code(s): R60.9 - EDEMA, UNSPECIFIED (4) Elevated brain natriuretic peptide (BNP) level Assessment/Plan: Diastolic CHF. Code(s): R79.89 - OTHER SPECIFIED ABNORMAL FINDINGS OF BLOOD CHEMISTRY (5) Elevated troponin Assessment/Plan: Elevated TNI, with CKMB relative index > 5. No further chest pain. ASA and clopidogrel. On metoprolol. On atorvastatin (LDL 84 mg/dL). Nitrates prn. ACEI if BUN/Cr, electrolytes allow. For stress MIBI today: if negative for ischemia, can decrease dose of atorvastatin, stop clopidogrel. Control BP. Plan for loop recorder as outpatient. Code(s): R79.89 - OTHER SPECIFIED ABNORMAL FINDINGS OF BLOOD CHEMISTRY (6) UTI (urinary tract infection) Code(s): N39.0 - URINARY TRACT INFECTION, SITE NOT SPECIFIED (7) PSVT (paroxysmal supraventricular tachycardia) Assessment/Plan: Now in NSR. ACS. On metoprolol for HR control. ECHO: normal LVEF; severe LVH. Telemetry monitoring Maintain electrolytes WNL. Avoid excessive dehydration. For stress MIBI. Holter monitor; loop recorder (outpt). Code(s): I47.1 - SUPRAVENTRICULAR TACHYCARDIA (8) HTN (hypertension) Assessment/Plan: on metoprolol and furosemide. Added amlodipine. ACEI if renal function improves. Code(s): I10 - ESSENTIAL (PRIMARY) HYPERTENSION (9) Obese Code(s): E66.9 - OBESITY, UNSPECIFIED (10) LVH (left ventricular hypertrophy) Assessment/Plan: severe LVH, with diastolic dysfunction (ECHO). Will change metoprolol to diltiazem for PSVT, HTN (superior in decreasing LVH). ACEI or ARB if renal function improves. Plan to change to chlorthalidone (over furosemide) for LVH regression if renal function allows. Weight loss, sodium restriction may also improve this condition. Regression of LVH may lower risk of developing further arrhythmias, cardiac events. Code(s): I51.7 - CARDIOMEGALY
[2019-11-01 07:05] LABS: HEMATOCRIT 35.6 % (35.4-49); HEMOGLOBIN 12.1 GM/dL (11.7-16.9); MEAN CELL VOLUME 88.4 fl (80-96); MEAN PLT VOLUME 9.3 fl (7.5-11.1); PLATELET COUNT 254 K/MM3 (134-434); RBC 4.03 M/mm3 (4.00-5.60); RDW 14.6 % (11.9-15.9); WHITE BLOOD COUNT 7.1 K/mm3 (4.0-10.0)
[2019-11-01 07:15] LABS: ALBUMIN 2.9 g/dl (3.4-5.0); BILIRUBIN,TOTAL 0.6 mg/dL (0.2-1); BLOOD UREA NITROGEN 42.2 mg/dL (7-18); CALCIUM 8.7 mg/dL (8.5-10.1); CREATININE 2.1 mg/dL (0.55-1.3); POTASSIUM 4.2 mmol/L (3.5-5.1)
[2019-11-01] MEDS: FUROSEMIDE 40 MG/4 ML INJECTABLE VIAL IVPUSH SCH (09:18)
[2019-11-01] MEDS: hydrALAZINE HCL 10 MG TABLET PO SCH (09:18)
[2019-11-01] MEDS: HEPARIN NA (PORCINE) 5,000 UNITS/ML 1ML VIAL SQ SCH (09:19)
--- NOTE | 2019-11-01 10:51 | PN ---
Progress Note, Physician History of Present Illness: Pt seen and examined at bedside. He is awake and alert. he feels that the edema is improving. - Current Medication List Current Medications: Active Medications Acetaminophen (Tylenol -) 650 mg PO Q6H PRN PRN Reason: PAIN LEVEL 4 - 6 Albuterol/Ipratropium (Duoneb -) 1 amp NEB Q6H PRN PRN Reason: SHORTNESS OF BREATH Atorvastatin Calcium (Lipitor -) 10 mg PO [facility] Diltiazem HCl (Cardizem Cd -) 180 mg PO DAILY [facility] Last Admin: 11/01/19 09:18 Dose: 180 mg Documented by: Furosemide (Lasix Injection -) 40 mg IVPUSH DAILY [facility] Last Admin: 11/01/19 09:18 Dose: 40 mg Documented by: Heparin Sodium (Porcine) (Heparin -) 5,000 unit SQ BID [facility] Last Admin: 11/01/19 09:19 Dose: 5,000 unit Documented by: Insulin Aspart (Novolog Vial Sliding Scale -) 1 vial SQ ACHS [facility]; Protocol Last Admin: 11/01/19 06:03 Dose: Not Given Documented by: Latanoprost (Xalatan 0.005% Eye Drops -) 1 drop [facility] Last Admin: 10/31/19 22:05 Dose: 1 drop Documented by: Lisinopril (Prinivil) 2.5 mg PO DAILY [facility] Metoprolol Tartrate (Lopressor Injection -) 5 mg IVPUSH Q4H PRN PRN Reason: TACHYCARDIA - Objective Vital Signs: Vital Signs Temperature 98.0 F 11/01/19 08:23 Pulse Rate 71 11/01/19 08:23 Respiratory Rate 18 11/01/19 08:23 Blood Pressure 152/89 11/01/19 08:23 O2 Sat by Pulse Oximetry (%) 97 10/31/19 21:00 Constitutional: Yes: Calm Eyes: Yes: Conjunctiva Clear HENT: Yes: Atraumatic Neck: Yes: Supple Cardiovascular: Yes: S1, S2 Respiratory: Yes: CTA Bilaterally Gastrointestinal: Yes: Normal Bowel Sounds, Soft Genitourinary: Yes: WNL Musculoskeletal: Yes: WNL Edema: Yes Edema: LLE: 1+, RLE: 1+ Integumentary: Yes: Venous Stasis Changes Neurological: Yes: Oriented Psychiatric: Yes: Oriented Labs: CBC, BMP 11/01/19 05:20 11/01/19 05:20 INR, PTT INR 1.21 (0.83-1.09) H 10/28/19 21:00 Problem List - Problems (1) ELISSA (acute kidney injury) Code(s): N17.9 - ACUTE KIDNEY FAILURE, UNSPECIFIED (2) Diastolic CHF Code(s): I50.30 - UNSPECIFIED DIASTOLIC (CONGESTIVE) HEART FAILURE (3) Edema Code(s): R60.9 - EDEMA, UNSPECIFIED Assessment/Plan Current Medications Generic Name Dose Route Start Last Admin Trade Name Freq PRN Reason Stop Dose Admin Acetaminophen 650 mg 10/28/19 18:52 Tylenol - PO Q6H PRN PAIN LEVEL 4 - 6 Albuterol/Ipratropium 1 amp 10/28/19 18:49 Duoneb - NEB Q6H PRN SHORTNESS OF BREATH Atorvastatin Calcium 10 mg 11/01/19 22:00 Lipitor - PO HS [facility] Diltiazem HCl 180 mg 11/01/19 10:00 11/01/19 09:18 Cardizem Cd - PO 180 mg DAILY [facility] Administration Furosemide 40 mg 10/31/19 10:00 11/01/19 09:18 Lasix Injection - IVPUSH 40 mg DAILY [facility] Administration Heparin Sodium (Porcine) 5,000 unit 10/30/19 22:00 11/01/19 09:19 Heparin - SQ 5,000 unit BID [facility] Administration Insulin Aspart 1 vial 10/28/19 22:00 11/01/19 06:03 Novolog Vial Sliding Scale - SQ Not Given ACHS [facility] Protocol Latanoprost 1 drop 10/30/19 22:00 10/31/19 22:05 Xalatan 0.005% Eye Drops - OS 1 drop HS [facility] Administration Lisinopril 2.5 mg 11/02/19 10:00 Prinivil PO DAILY [facility] Metoprolol Tartrate 5 mg 10/29/19 00:11 Lopressor Injection - IVPUSH Q4H PRN TACHYCARDIA Laboratory Tests 10/30/19 15:10 Protein/Creatinin Ratio 2.8 Impression 1. ELISSA 2. proteinuria 3. HTN 4. DM 5. CHF diastolic 6. hld Plan - will start low dose luz - pt needs outpt workup and followup - cont lasix as outpt - low sodium diet - discussed with medical team - will see in office
[2019-11-01 14:05] VITALS: BP 111/66; PULSE 68; TEMP 97
--- NOTE | 2019-11-01 14:13 | DS ---
Physical Exam: SUBJECTIVE: Patient seen and examined. Patient informed that he will be discharged home today but will need to follow up with Dr. Turner for outpatient monitoring of this renal function. As per Dr. Turner, can start patient on low dose lisinopril with close monitoring outpatient. Patient has a PCP, Dr. Ramirez and he agrees to follow up with Dr. Ramirez for post hospital follow up. Patient advised to go the clinic if he is unable to see Dr. Ramirez. Advised patient to also see an fig caprifier that accepts his insurance for diabetes management. Ideally patient should be sent home with Novolog and Levemir, but he is refusing to self inject. He wants to take metforrmin and have hmga1c repeated with PCP. OBJECTIVE: Patient is a 58 year old male with a significant past medical history of diabetes and hypertension. He has not taken any medications for hypertension or diabetes for over 6 months for lack of medical follow up. He has insurance ([employer]) but admits he has not seen a PCP because he felt well and had no issues. He went to see his urologist on 10/28/2019 (Dr. Nathan Blackwell) for scrotal swelling and pain. After being evaluated, he was told to come to the ED for possible CHF exacerbation. SEE PROBLEM LIST BELOW: Vital Signs Period Temp Pulse Resp BP Sys/Saucedo Pulse Ox Last 24 Hr 97 F-98.1 F 68-88 16-18 111-160/65-89 96-97 PHYSICAL EXAM GENERAL: Awake, alert, and fully oriented, in no acute distress. HEAD: Normal with no signs of trauma. EYES: Pupils equal, round and reactive to light, extraocular movements intact, sclera anicteric, conjunctiva clear. No lid lag. EARS, NOSE, THROAT: Ears normal, nares patent, oropharynx clear without exudates. Moist mucous membranes. NECK: Normal range of motion, supple without lymphadenopathy, JVD, or masses. LUNGS: diminished right lower lobe compared to left, diminished upper lobes. tolerating room air HEART: Regular rate and rhythm ABDOMEN: Soft, nontender, not distended, normoactive bowel sounds, no guarding, no rebound, no masses. No hepatomegaly or splenomegaly. SCROTUM: scrotal edema with mild erythema MUSCULOSKELETAL: No CVA tenderness. UPPER EXTREMITIES: No peripheral edema. LOWER EXTREMITIES: +2 peripheral edema bilaterally SKIN: self inflicted scratches on bilateral lower ext. LABS Laboratory Results - last 24 hr 10/31/19 10/31/19 10/31/19 05:40 14:18 16:33 WBC RBC Hgb Hct MCV MCH MCHC RDW Plt Count MPV PTT (Actin FS) Sodium Potassium Chloride Carbon Dioxide Anion Gap BUN Creatinine Est GFR (CKD-EPI)AfAm Est GFR (CKD-EPI)NonAf POC Glucometer 131 189 Random Glucose Calcium Total Bilirubin AST ALT Alkaline Phosphatase Total Protein Albumin Double Strand DNA Ab 1 10/31/19 11/01/19 11/01/19 21:20 05:20 05:20 WBC 7.1 RBC 4.03 Hgb 12.1 Hct 35.6 MCV 88.4 MCH 30.0 MCHC 34.0 RDW 14.6 Plt Count 254 MPV 9.3 PTT (Actin FS) 39.0 H Sodium Potassium Chloride Carbon Dioxide Anion Gap BUN Creatinine Est GFR (CKD-EPI)AfAm Est GFR (CKD-EPI)NonAf POC Glucometer 154 Random Glucose Calcium Total Bilirubin AST ALT Alkaline Phosphatase Total Protein Albumin Double Strand DNA Ab 11/01/19 11/01/19 11/01/19 05:20 05:38 11:17 WBC RBC Hgb Hct MCV MCH MCHC RDW Plt Count MPV PTT (Actin FS) Sodium 139 Potassium 4.2 Chloride 104 Carbon Dioxide 27 Anion Gap 8 BUN 42.2 H Creatinine 2.1 H Est GFR (CKD-EPI)AfAm 38.49 Est GFR (CKD-EPI)NonAf 33.21 POC Glucometer 108 176 Random Glucose 112 H Calcium 8.7 Total Bilirubin 0.6 AST 17 ALT 21 Alkaline Phosphatase 92 Total Protein 6.0 L Albumin 2.9 L Double Strand DNA Ab HOSPITAL COURSE: Date of Admission:10/28/19 Date of Discharge: 11/01/19 Minutes to complete discharge: 45 Discharge Summary Problems reviewed: Yes Reason For Visit: CHF Current Active Problems ELISSA (acute kidney injury) (Acute) Chest pain (Acute) DVT prophylaxis (Acute) Diastolic CHF (Acute) Edema (Acute) Elevated brain natriuretic peptide (BNP) level (Acute) Elevated troponin (Acute) HTN (hypertension) (Acute) Hypertensive emergency (Acute) LVH (left ventricular hypertrophy) (Acute) Obese (Acute) PSVT (paroxysmal supraventricular tachycardia) (Acute) Shortness of breath (Acute) UTI (urinary tract infection) (Acute) Condition: Improved - Instructions Diet, Activity, Other Instructions: Mr Vasquez: You were admitted for elevated blood sugars, elevated blood pressure and acute kidney injury. During your stay, you were evaluated by cardiology and a kidney specialist. Here are your discharge instructions. Elevated blood sugars: Start taking Metformin 500mg TWICE per day. This medication can help control y our blood sugars. It is important that you check your blood sugars at least 3 times per day before meals. Please record the number and bring to your primary care doctor. We also recommend that you see an fig caprifier to help manage your diabetes. A glucometer has been called into your pharmacy. Acute Kidney Injury: Please follow up with Dr. Turner, kidney specialist to assure that your kidney function stabilizes. Elevated Blood pressure: We have started you on Cardizem 180mg ONCE per day, take at 8am. We have started you on Lisinopril 2.5mg once per day, take at 8am. Please follow up with Dr. Flores (svp monetization) Lasix 40mg daily, this medication will help your body not retain any fluids. it is important that you have repeat blood work to assure that the Lasix should con tinue. Thank you for allowing us to care for you. Referrals: [facility] [place] [Provider Group] Kenyon Ramirez MD [Primary Care Provider] - Perry Cortez MD [Staff Physician] - Siddharth Turner MD [Staff Physician] - Disposition: HOME - Home Medications Comprehensive Discharge Medication List: Ambulatory Orders Latanoprost 0.005% Eye Drops [Xalatan 0.005% Eye Drops -] 1 drop HS 11/09/16 metFORMIN HCL [Metformin HCl] 500 mg PO BID 11/09/16 Atorvastatin Ca [Lipitor] 10 mg PO HS #60 tablet 11/01/19 Diltiazem Cd [Cardizem Cd -] 180 mg PO DAILY #60 cap.cd.24h 11/01/19 Furosemide [Lasix] 40 mg PO DAILY #60 tablet 11/01/19 Lisinopril [Prinivil] 2.5 mg PO DAILY #60 tablet 11/01/19 Miscellaneous Medical Supply [Glucometer Device] 1 each SQ ASDIR #1 kit 11/01/19 [facility] [employer] [Glucometer Test Strips #100] 1 each SQ ASDIR #1 box 11/01/19 metFORMIN HCL [Metformin HCl] 500 mg PO BID #60 tablet 11/01/19 Problem List - Problems (1) Elevated troponin Assessment/Plan: TNI 0.18-->0.21; CK elevated patient no further chest pain heparin drip discontinued. on atorvastatin on cardizem 180mg and lisinopril 2.5mg patient had a negative stress test on 10/31/2019 Code(s): R79.89 - OTHER SPECIFIED ABNORMAL FINDINGS OF BLOOD CHEMISTRY (2) Chest pain Assessment/Plan: resolved Code(s): R07.9 - CHEST PAIN, UNSPECIFIED (3) Hypertensive emergency Assessment/Plan: resolved. on cardizem 180 daily on lisinopril 2.5 daily Code(s): I16.1 - HYPERTENSIVE EMERGENCY (4) Elevated brain natriuretic peptide (BNP) level Assessment/Plan: bnk 25k, echo reviewed on lasix 40 daily patient agrees to outpatient cardiology follow up Code(s): R79.89 - OTHER SPECIFIED ABNORMAL FINDINGS OF BLOOD CHEMISTRY (5) ELISSA (acute kidney injury) Assessment/Plan: creatinine above baseline of 1.1, currently 2.1 renal ultrasound, no hydro seen, possible small non obstructing renal stone patient to follow up with Dr. Turner Code(s): N17.9 - ACUTE KIDNEY FAILURE, UNSPECIFIED (6) Diastolic CHF Code(s): I50.30 - UNSPECIFIED DIASTOLIC (CONGESTIVE) HEART FAILURE (7) Shortness of breath Assessment/Plan: tolerating room air, resolved Code(s): R06.02 - SHORTNESS OF BREATH (8) UTI (urinary tract infection) Assessment/Plan: UTI seen on UA UC negative for growth, d/c ceftriaxone Code(s): N39.0 - URINARY TRACT INFECTION, SITE NOT SPECIFIED (9) DVT prophylaxis Code(s): Z29.9 - ENCOUNTER FOR PROPHYLACTIC MEASURES, UNSPECIFIED This patient is new to me today: No Emergency Visit: Yes ED Registration Date: 10/28/19 Care time: The patient presented to the Emergency Department on the above date and was hospitalized for further evaluation of their emergent condition. Critical Care patient: No - Discharge Referral Referred to [facility] No
[2019-11-01] MEDS ORDERED: ATORVASTATIN CA 10 MG TABLET (FP) PO SCH (22:00)
[2019-11-02] MEDS ORDERED: LISINOPRIL 5 MG TABLET (FP) PO SCH (10:00)
[2019-11-04 17:06] LABS: ATYPICAL pANCA <1:20 titer (Neg:<1:20); C-ANCA <1:20 titer (Neg:<1:20)
== END 2019-11-01 17:45 | disposition home or self-care (01) | DRG 199 ==
LOC: JER 13:40 → JERBED 17:11 → J4S 10-29 00:54
PROVIDERS: ADMIT Internal Medicine; ATTEND Nurse Practitioner Family
DX: I16.1 Hypertensive emergency (principal); I11.0 Hypertensive heart disease with heart failure; I50.33 Acute on chronic diastolic (congestive) heart failure; N17.9 Acute kidney failure, unspecified; N39.0 Urinary tract infection, site not specified; E78.5 Hyperlipidemia, unspecified; E66.9 Obesity, unspecified; Z68.31 Body mass index [BMI] 31.0-31.9, adult; R79.89 Other specified abnormal findings of blood chemistry; Z91.14 Patient's other noncompliance with medication regimen; I47.1 Supraventricular tachycardia; E11.9 Type 2 diabetes mellitus without complications; N40.0 Benign prostatic hyperplasia without lower urinary tract symptoms; Z79.84 Long term (current) use of oral hypoglycemic drugs
CPT/HCPCS: 36415; 71046-TC-FY; 76775-TC; 78452-TC; 80048; 80053; 80061; 81003; 82272; 82550; 82553; 82570; 82962; 83036; 83520; 83721; 83735; 83880; 84155; 84156; 84165; 84443; 84484; 85025; 85027; 85610; 85730; 86038; 86225; 86256; 87086; 93005; 93010; 93017; 93306-TC; 99285-25; A9502; J1644; J2785

== ENCOUNTER 2020-04-20 10:34 | Inpatient (IN) | payer OTHER ==
[2020-04-20] MEDS ORDERED: FUROSEMIDE 40 MG/4 ML INJECTABLE VIAL IVPUSH ONE (11:43)
[2020-04-20] MEDS ORDERED: FUROSEMIDE 40 MG/4 ML INJECTABLE VIAL ONE (11:58)
--- NOTE | 2020-04-20 12:00 | PDOC ---
History of Present Illness - General Chief Complaint: Congestive Heart Failure Stated Complaint: CHF/ SWELLING Time Seen by Provider: 04/20/20 11:33 - History of Present Illness Initial Comments: 59 yo male with PMH of htn, hld, dm, chf (EF 61% october 2019) presents with b/l LE swelling. Pt says symptoms began 5 days ago and are associated with sob, chest pressure, and scrotal swelling. He has had a decrease exercise tolerance d ue to sob. Pt denies cardona, fevers, chills, nvd, dysuria. He was seen in october for a similar presentation and diagnosed with diastolic chf. He was under the care of Dr Flores and placed on 40mg lasix daily. He states he is compliant with his medication. He is allergic to aspirin. Past History - Medical History Allergies/Adverse Reactions: Allergies Allergy/AdvReac Type Severity Reaction Status Date / Time aspirin Allergy Severe Abdominal Verified 10/28/19 13:48 pain egg Allergy Severe Violently Verified 10/28/19 13:48 ill, vomiting tomato Allergy Severe Violently Verified 10/28/19 13:48 ill, vomiting Home Medications: Ambulatory Orders Latanoprost 0.005% Eye Drops [Xalatan 0.005% Eye Drops -] 1 drop HS 11/09/16 Atorvastatin Ca [Lipitor] 10 mg PO HS #60 tablet 11/01/19 Diltiazem Cd [Cardizem Cd -] 180 mg PO DAILY #60 cap.cd.24h 11/01/19 Furosemide [Lasix] 40 mg PO DAILY #60 tablet 11/01/19 Lisinopril [Prinivil] 2.5 mg PO DAILY #60 tablet 11/01/19 metFORMIN HCL [Metformin HCl] 500 mg PO BID #60 tablet 11/01/19 Anemia: No Asthma: No Cancer: No Cardiac Disorders: No CVA: No COPD: No CHF: Yes Dementia: No Diabetes: Yes (NEW DX-STARTED ON GLUCOPHAGE RECENTLY) GI Disorders: No Disorders: No HTN: Yes Hypercholesterolemia: Yes Liver Disease: No Seizures: No Thyroid Disease: No - Surgical History Abdominal Surgery: No Appendectomy: No Cardiac Surgery: No Cholecystectomy: No Lung Surgery: No Neurologic Surgery: No Orthopedic Surgery: No - Immunization History Immunization Up to Date: Yes - Psycho-Social/Smoking History Smoking History: Never smoked Have you smoked in the past 12 months: No - Substance Abuse Hx (Audit-C & DAST Scrn) How often the patient has a drink containing alcohol: Never Score: In Men: 4 or > Positive; In Women: 3 or > Positive: 0 Screen Result (Pos requires Nsg. Audit-10AR): Negative In the last yr the pt used illegal drug/Rx for NonMed reason: No Score: Yes response is considered Positive: 0 Screen Result (Positive result requires Nsg. DAST-10): Negative Review of Systems - Review of Systems Constitutional: No: Chills, Fever HEENTM: No: Recent change in vision, Double Vision Respiratory: Yes: Orthopnea, Shortness of Breath. No: Cough Cardiac (ROS): Yes: Edema, Chest Tightness. No: Lightheadedness, Palpitations, Syncope ABD/GI: No: Nausea, Vomiting *Physical Exam - Vital Signs Last Vital Signs Temp Pulse Resp BP Pulse Ox 98.7 F 92 H 18 114/69 97 04/20/20 10:43 04/20/20 10:43 04/20/20 10:43 04/20/20 10:43 04/20/20 10:43 - Physical Exam General Appearance: Yes: Appropriately Dressed. No: Apparent Distress HEENT: positive: EOMI, Normal Voice Neck: negative: Tender, Rigid Respiratory/Chest: positive: Crackles (bilateral bases (R>L)). negative: Chest Tender, Respiratory Distress, Wheezing Cardiovascular: positive: Regular Rhythm, Regular Rate, S1, S2, Edema (b/l LE). negative: JVD, Murmur Gastrointestinal/Abdominal: positive: Flat, Soft, Hepatomegaly. negative: Tender Male Genitalia: positive: testicular tenderness, other (testicular swelling) Lymphatic: negative: Adenopathy, Tenderness Musculoskeletal: positive: Normal Inspection, CVA Tenderness Extremity: positive: Normal Capillary Refill, Normal Range of Motion, Pedal Edema, Swelling (bilateral) Integumentary: positive: Normal Color, Dry, Warm Neurologic: positive: Fully Oriented, Alert, Normal Mood/Affect ED Treatment Course - LABORATORY CBC & Chemistry Diagram: 04/20/20 11:57 04/20/20 11:57 - RADIOLOGY Radiology Studies Ordered: Category Date Time Status CHEST PA & LAT [RAD] Stat Radiology 04/20/20 11:43 Ordered Medical Decision Making - Medical Decision Making 59 yo male with PMH of htn, hld, dm, chf (EF 61% october 2019) presents with bilateral LE swelling, sob, hepatomegaly, scrotal swelling. Crackles at both bases, worse on the right Xray shows right basilar infiltrates BNP elevated at 34k Treated with Lasix (40, IV). Troponin elevated at 0.19, repeat in 3 hours Creatinine elevated at 2.2, consistent with baseline Pt admitted under Dr. Warren for CHF exacerbation. Discharge - Discharge Information Problems reviewed: Yes Clinical Impression/Diagnosis: CHF (congestive heart failure) Condition: Stable - Admission Yes - Follow up/Referral - Patient Discharge Instructions - Post Discharge Activity
[2020-04-20 12:37] LABS: HEMATOCRIT 31.9 % (35.4-49); HEMOGLOBIN 10.6 GM/dL (11.7-16.9); MCH 30.8 pg (25.7-33.7); MCHC 33.2 g/dl (32.0-35.9); PLATELET COUNT 264 K/MM3 (134-434); RBC 3.43 M/mm3 (4.00-5.60); WHITE BLOOD COUNT 8.6 K/mm3 (4.0-10.0)
[2020-04-20 13:05] LABS: ALBUMIN 3.4 g/dl (3.4-5.0); BLOOD UREA NITROGEN 68.1 mg/dL (7-18); CALCIUM 8.9 mg/dL (8.5-10.1); CREATININE 2.2 mg/dL (0.55-1.3); POTASSIUM 4.4 mmol/L (3.5-5.1); TOT PROT 6.7 g/dl (6.4-8.2)
--- NOTE | 2020-04-20 13:17 | PDOC ---
Documentation entered by Gómez Naylor SCRIBE, acting as scribe for Chiqui Tavarez MD. Chiqui Tavarez MD: This documentation has been prepared by the Kate brady inGómez SCRIBE, under my direction and personally reviewed by me in its entirety. I confirm that the documentation accurately reflects all work, treatment, procedures, and medical decision making performed by me. Attending Attestation - Resident Resident Name: Nellie Keith - ED Attending Attestation I have performed the following: I have examined & evaluated the patient, The case was reviewed & discussed with the resident, I agree w/resident's findings & plan, Exceptions are as noted - HPI HPI: 04/20/20 12:14 The patient is a year old female with a significant past medical history of HTN, HLD, DM, and CHF (EF 61% october 2019) who presents to the emergency department for evaluation of bilateral lower extremity edema and shortness of breath that began five days ago. The patient reports associated chest pressure, and scrotal swelling. He was here in October for similar symptoms which indicated diastolic congestive heart failure for which he was prescribed 40mg lasix daily. The patient denies abdominal/back pain, and cough. Denies fever, chills, nausea, vomiting, and/or any GI symptoms. Denies any symptoms. Denies any other symptoms. Allergies: aspirin, egg, tomato - Physicial Exam PE: 04/20/20 11:21 GENERAL: Awake, alert, and fully oriented, in no acute distress HEAD: No signs of trauma LUNGS: Breath sounds equal, clear to auscultation bilaterally. No wheezes, and no crackles HEART: Regular rate and rhythm, normal S1 and S2, no murmurs, rubs or gallops ABDOMEN: Soft, nontender, normoactive bowel sounds. No guarding, no rebound. No masses EXTREMITIES: + 2 pitting edema to knee b/l NEUROLOGICAL: Cranial nerves II through XII grossly intact. Normal speech SKIN: Warm, Dry, normal turgor, no rashes or lesions noted. 04/20/20 13:07 - Medical Decision Making 04/20/20 13:10 Pt presents to the ED complaining of worsening bilateral lower extremity edema, SOB and ROBLES. HIstory of CHF, treated with lasix. Patient reports decreased uri ne output depsite compliance with lasix. Will check labs and CXR, likely admit to medicine for CHF exacerbation. Discharge - Discharge Information Problems reviewed: Yes Clinical Impression/Diagnosis: CHF (congestive heart failure) Condition: Stable - Follow up/Referral - Patient Discharge Instructions - Post Discharge Activity
[2020-04-20 13:37] LABS: N-TERMINAL BNP 31485.7 pg/ml (5-125)
--- NOTE | 2020-04-20 15:13 | HP ---
CHIEF COMPLAINT: leg swelling shortness of [id number] PCP:dr boone HISTORY OF PRESENT ILLNESS: 59 y/o male with PMH of DM HTN HLD CHF (last echo 11/13 ef 55-60%) presents to the ED with complaints of worsening LE edema and shortness of breath for the last five days patient was diagnsoed with new onset CHF back in october and was sent home with 40 lasix PO and patient states he had been compliant with that ; howver over the last 5 days or so he has had increased LE edema with decreased exercise tolerance and orthopnea, he also endorses increased scrotal swelling . he states he has been taking all of his medications however he has been staying at his cousins house so he has not been cooking for himself -he denies having an associated cough fever or sick contacts ER course was notable for: (1)vitals wnl; EKG first degree AV block no ST T changes (2)hgb 10.6 Cr 2.2 BNP >62127 trop 0.19 (3)received IV 40 lasix x1 Recent Travel: denies PAST MEDICAL HISTORY: see above PAST SURGICAL HISTORY: cataract surgery Social History: Smoking:denies Alcohol:denies Drugs: denies Allergies aspirin Allergy (Severe, Verified 10/28/19 13:48) Abdominal pain egg Allergy (Severe, Verified 10/28/19 13:48) Violently ill, vomiting tomato Allergy (Severe, Verified 10/28/19 13:48) Violently ill, vomiting HOME MEDICATIONS: Home Medications Medication Instructions Recorded Latanoprost 0.005% Eye Drops 1 drop HS 11/09/16 [Xalatan 0.005% Eye Drops -] Atorvastatin Ca [Lipitor] 10 mg PO HS #60 tablet 11/01/19 Diltiazem Cd [Cardizem Cd -] 180 mg PO DAILY #60 cap.cd.24h 11/01/19 Furosemide [Lasix] 40 mg PO DAILY #60 tablet 11/01/19 Lisinopril [Prinivil] 2.5 mg PO DAILY #60 tablet 11/01/19 metFORMIN HCL [Metformin HCl] 500 mg PO BID #60 tablet 11/01/19 REVIEW OF SYSTEMS CONSTITUTIONAL: Absent: fever, chills, diaphoresis, generalized weakness, malaise, loss of appetite, weight change HEENT: Absent: rhinorrhea, nasal congestion, throat pain, throat swelling, difficulty swallowing, mouth swelling, ear pain, eye pain, visual changes CARDIOVASCULAR: Present: peripheral edema Absent: chest pain, syncope, palpitations, irregular heart rate, lightheadedness RESPIRATORY: Present: shortness of breath, dyspnea with exertion, orthopnea Absent: cough, wheezing, stridor, hemoptysis GASTROINTESTINAL: Absent: abdominal pain, abdominal distension, nausea, vomiting, diarrhea, constipation, melena, hematochezia GENITOURINARY: Absent: dysuria, frequency, urgency, hesitancy, hematuria, flank pain, genital pain MUSCULOSKELETAL: Absent: myalgia, arthralgia, joint swelling, back pain, neck pain SKIN: Absent: rash, itching, pallor HEMATOLOGIC/IMMUNOLOGIC: Absent: easy bleeding, easy bruising, lymphadenopathy, frequent infections ENDOCRINE: Absent: unexplained weight gain, unexplained weight loss, heat intolerance, cold intolerance NEUROLOGIC: Absent: headache, focal weakness or paresthesias, dizziness, unsteady gait, seizure, mental status changes, bladder or bowel incontinence PSYCHIATRIC: Absent: anxiety, depression, suicidal or homicidal ideation, hallucinations. PHYSICAL EXAMINATION Vital Signs - 24 hr 04/20/20 04/20/20 04/20/20 10:43 13:31 13:44 Temperature 98.7 F Pulse Rate 92 H Pulse Rate [ 83 Apical] Respiratory 18 18 27 H Rate Blood Pressure 114/69 Blood Pressure 129/67 [Right Arm] O2 Sat by Pulse 97 97 94 L Oximetry (%) GENERAL: Awake, alert, and fully oriented, in no acute distress. EYES: PEERLA: EOMI; no scleral icterus NECK:no JVD; no lymphadenopathy LUNGS: crackles appreciated mainly at the right base HEART: RRR normal S1 and S2 without murmur, rub or gallop. ABDOMEN: Soft, NT/ND +BS in all 4 quadrants : scrotal swelling; tenderness upon palpation MUSCULOSKELETAL: Normal range of motion at all joints. No bony deformities or tenderness. No CVA tenderness. EXTREMITIES; warm; well-perfused 2+ pitting edema b/l NEUROLOGICAL: Cranial nerves II-XII intact. Normal speech. Normal gait. PSYCHIATRIC: Cooperative. Good eye contact. Appropriate mood and affect. SKIN: Warm, dry, normal turgor, no rashes or lesions noted, normal capillary refill. Laboratory Results - last 24 hr 04/20/20 04/20/20 11:57 11:57 WBC 8.6 RBC 3.43 L Hgb 10.6 L Hct 31.9 L MCV 93.0 MCH 30.8 MCHC 33.2 RDW 15.0 Plt Count 264 MPV 9.0 Sodium 140 Potassium 4.4 Chloride 111 H Carbon Dioxide 18 L Anion Gap 12 BUN 68.1 H Creatinine 2.2 H Est GFR (CKD-EPI)AfAm 36.13 Est GFR (CKD-EPI)NonAf 31.17 Random Glucose 148 H Calcium 8.9 Total Bilirubin 1.0 AST 38 H ALT 57 Alkaline Phosphatase 177 H Creatine Kinase 178 Creatine Kinase Index 10.4 H CK-MB (CK-2) 18.6 H Troponin I 0.19 H B-Natriuretic Peptide 33057.7 H Total Protein 6.7 Albumin 3.4 ASSESSMENT/PLAN: 59 y/o male with PMH of DM HTN HLD CHF (last echo 11/13 EF 55-60%) presents to the ED with complaints of worsening LE edema and shortness of breath for the last five days #CHF Exacerbation patient received IV lasix 40 once -cardio consult -IV lasix 40 -monitor I's and O's -daily weights #ELISSA on CKD? patients Cr was 2.2 on arrival -last Cr was 2.1 -urine lytes -nephro consult -monitor electrolytes #Anemia patients Hgb was 10.6 on arrival -will get iron studies -monitor for signs of bleeding -FOBT #DM holding home metformin -ISS ACHS -BGSM ACHS #HTN - c/w lisinopril -monitor hemodynamics #HLD c/w atorvastatin f/e/n not on standing fluids monitor electrolytes sodium-controlled diet dvt ppx: heparin sq Family Medical History Family History: As Documented Family Hx Coronary Artery Disease: Father Family Hx Diabetes: Mother, Father Problem List - Problem (1) CHF (congestive heart failure) Code(s): I50.9 - HEART FAILURE, UNSPECIFIED (2) ELISSA (acute kidney injury) Code(s): N17.9 - ACUTE KIDNEY FAILURE, UNSPECIFIED (3) Diastolic CHF Code(s): I50.30 - UNSPECIFIED DIASTOLIC (CONGESTIVE) HEART FAILURE (4) HTN (hypertension) Code(s): I10 - ESSENTIAL (PRIMARY) HYPERTENSION Visit type - Emergency Visit Emergency Visit: Yes Care time: The patient presented to the Emergency Department on the above date and was hospitalized for further evaluation of their emergent condition. - New Patient This patient is new to me today: Yes Date on this admission: 04/20/20 - Critical Care Critical Care patient: No ATTENDING PHYSICIAN STATEMENT I saw and evaluated the patient. I reviewed the resident's note and discussed the case with the resident. I agree with the resident's findings and plan as documented. SUBJECTIVE: OBJECTIVE: ASSESSMENT AND PLAN:
[2020-04-20] MEDS ORDERED: ASPIRIN 81 MG CHEWABLE TABLETS PO ONE (15:16)
--- NOTE | 2020-04-20 16:20 | PN ---
Teaching Attending Note Name of Resident: Jessica Zabala ATTENDING PHYSICIAN STATEMENT I saw and evaluated the patient. I reviewed the resident's note and discussed the case with the resident. I agree with the resident's findings and plan as documented. SUBJECTIVE: 59yo M with h/o HFpEF (Grade II diastolic dysfx), T2DM, HTN, HLD who presents today with increased lower extremity edema and shortness of breath. Pt reports that he was here in 10/2019 for similar symptoms due to noncompliance of Lasix dosing. He started to take his medications and wanted to establish care, however due to COVID-19 pandemic he was unable to see specialists. He was being seen by Dr. Ramirez to help manage his chronic problems and continued taking Lasix on a regular basis. Patient reports he had been adherent to a low-sodium diet, ho wever his relative has been cooking recently so he is unsure how much salt he was eating. In addition, pt tries to weigh himself daily and noticed that his weight had dramatically increased (dry weight around 180-190lbs reportedly). For the past few days pt noted that his exercise tolerance was decreasing due to shortness of breath and that he was having increasing orthopnea. Pt sought further evaluation today due to his shortness of breath. Pt denies any fever/chills, CP, palpitations, abdominal pain, diarrhea/constipation, dysuria, hematuria, polyuria. Recent Travel: denies PAST MEDICAL HISTORY: see above PAST SURGICAL HISTORY: cataract surgery Social History: Smoking:denies Alcohol:denies Drugs: denies FamHx: T2DM throughout, CAD both parents (no early cardiac deaths) OBJECTIVE: Vital Signs Temperature 98.7 F 04/20/20 10:43 Pulse Rate 83 04/20/20 13:44 Respiratory Rate 27 H 04/20/20 13:44 Blood Pressure 129/67 04/20/20 13:44 O2 Sat by Pulse Oximetry (%) 94 L 04/20/20 13:44 PE: Gen: NAD, awake, alert, oriented x3 HEENT: Nc/aT, EOMI without nystagmus, JUNO, MMM Neck: JVD +, no masses appreciated LUNG: CTA b/l without any wheezes or rhonchi. On RA CARD: RRR no overt murmurs appreciated, no carotid bruits ABD: Soft, Nt/ND, normoactive BS, no abdominal wall edema, + hepatojugular reflux] : Scrotal edema +, no other abnormalities noted EXT: 2+ pitting edema to above knee, early chronic venous changes noted, DP pulses intact b/l CBC, BMP 04/20/20 11:57 04/20/20 11:57 ASSESSMENT AND PLAN: Acute on chronic diastolic heart failure Chronic kidney injury: CRS vs. diabetic nephropathy vs. mixed Normocytic anemia Mild compensated metabolic acidemia Elevated troponin: demand vs. poor renal clearance --Likely 2/2 increased salt intake vs. inadequate lasix dosing in setting of CKD --Lasix IVP 40mg qdaily --Monitor urine output for response; may have to titrate up dose --Trend troponin and CK-MB; asymptomatic currently --ECG unchanged from baseline --Continue rest of cardiac medications --Cardiology consulted: Dr. Cortez --Daily weights --Continue home antihypertensives --UA, Urine lytes, urine protein-cr ration, urine albumin --Renal U/S performed in 10/2019 (previous nephrolithiasis) --Avoid nephrotoxic agents --Trend Cr/BUN and K+ --Nephrology consulted --BGM ACHS with ISS in acute setting --Holding oral glycemic agents acutely --A1c 10/2019 8.8% (down from 10 prior) --Anemia likely 2/2 chronic dz --will order iron studies for AM labs for r/o FEN: Fluids: Active diuresis Electrolyte abnormalities: none; monitor Nutrition: Cardiac/renal/diabetic diet PPX: DVT- Heparin SQ Dispo: Admission Reagan Warren DO - IM
[2020-04-20] MEDS: INSULIN SLIDING SCALE (NOVOLOG) 1 VIAL SQ SCH ×2 (17:24→22:34)
[2020-04-20] MEDS ORDERED: ATORVASTATIN CA 10 MG TABLET (FP) ONE (22:24)
[2020-04-20] MEDS ORDERED: HEPARIN NA (PORCINE) 5,000 UNITS/ML 1ML VIAL ONE (22:24)
[2020-04-20] MEDS: HEPARIN NA (PORCINE) 5,000 UNITS/ML 1ML VIAL SQ SCH (22:34)
[2020-04-20] MEDS: ATORVASTATIN CA 10 MG TABLET (FP) PO SCH (22:34)
--- NOTE | 2020-04-21 01:29 | CON.CARD ---
Consult Consult Specialty:: cardiology Reason for Consultation:: shortness of breath - History of Present Illness Chief Complaint: Pt A&Ox3; sitting up in bed; SOB on mild exertion; c/o bilateral leg swelling and heavinss, scrotal swelling. Denies chest pain. History of Present Illness: Mr. Dudley is a 59 yr old white man with PMHx CKD, PSVT, diastolic CHF (ECHO 10/2019: normal LVEF: severe LVH; abnormal diastolic compliance), chronically elevated troponin, obesity, right 7th rib suspected fracture (2017), DM, HTN, HDL, BPH, now admitted with scrotal swelling, weight gain, bilateral leg edema, abdoinal distention, and shortness of breath for the past 10 days. Pt claims compliance with medications. He noted he was having little urination for the past few days, despite taking PO furosemide; since receving IV furosemide in ER, he "filled the bottle". He is dealing with multiple emotionally stressful situations, including the need to find a new home for his and him. She has health issues of her own. 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 Pt was admitted 10/2019 for similar symptoms and signs. Stress Lexiscan MIBI 10/2019: no myocardial ischemia. - History Source History Provided By: Patient, Medical Record Limitations to Obtaining History: No Limitations - Past Medical History Cardio/Vascular: Yes: CHF (diastolic (ECHO 2017)), HTN, Other (PSVT) Renal/: Yes: Renal Inusuff Heme/Onc: Yes: Anemia Psych: Yes: Anxiety Endocrine: Yes: Diabetes Mellitus - Past Surgical History Past Surgical History: Yes: Cataract Removal - Alcohol/Substance Use Hx Alcohol Use: No - Smoking History Smoking history: Never smoked Have you smoked in the past 12 months: No - Social History Usual Living Arrangement: With Spouse Home Medications - Allergies Allergies/Adverse Reactions: Allergies Allergy/AdvReac Type Severity Reaction Status Date / Time aspirin Allergy Severe Abdominal Verified 10/28/19 13:48 pain egg Allergy Severe Violently Verified 10/28/19 13:48 ill, vomiting tomato Allergy Severe Violently Verified 10/28/19 13:48 ill, vomiting - Home Medications Home Medications: Ambulatory Orders Latanoprost 0.005% Eye Drops [Xalatan 0.005% Eye Drops -] 1 drop HS 03/16/17 Atorvastatin Ca [Lipitor] 10 mg PO HS #60 tablet 11/01/19 Diltiazem Cd [Cardizem Cd -] 180 mg PO DAILY #60 cap.cd.24h 11/01/19 Furosemide [Lasix] 40 mg PO DAILY #60 tablet 11/01/19 Lisinopril [Prinivil] 2.5 mg PO DAILY #60 tablet 11/01/19 metFORMIN HCL [Metformin HCl] 500 mg PO BID #60 tablet 11/01/19 Family Medical History Family Hx Cancer: Father, Brother Family Hx Cardiac Disorders: Brother (heart disesas: at 10 yrs old) Family Hx Coronary Artery Disease: Father Family Hx Diabetes: Mother, Father Review of Systems - Review of Systems Constitutional: reports: Weakness Eyes: reports: No Symptoms HENT: reports: No Symptoms Neck: reports: No Symptoms Cardiovascular: reports: Shortness of Breath Respiratory: reports: SOB Gastrointestinal: reports: No Symptoms Genitourinary: reports: Dysuria, Testicular Swelling Breasts: reports: No Symptoms Reported Musculoskeletal: reports: Muscle Weakness Integumentary: reports: Erythema, Lesions Neurological: reports: No Symptoms Endocrine: reports: Other Psychiatric: reports: Anxiety - Risk Factors Known Risk Factors: Yes: Age, Diabetes Mellitus, Gender, Hypercholesterolemia, Hypertension, Physical Inactivity, Other (diastolic CHF; PSVT) Vital Signs: Vital Signs Temperature 98.1 F 04/21/20 00:30 Pulse Rate 83 04/21/20 00:30 Respiratory Rate 19 04/21/20 00:30 Blood Pressure 108/67 04/21/20 00:30 O2 Sat by Pulse Oximetry (%) 96 04/21/20 00:30 Constitutional: Yes: Calm, Obese Eyes: Yes: WNL HENT: Yes: WNL Neck: Yes: WNL Respiratory: Yes: Regular Gastrointestinal: Yes: Soft, Abdomen, Obese Renal/: Yes: Scrotal Edema. No: Anuria Cardiovascular: Yes: Regular Rate and Rhythm JVD: No Carotid Bruit: No PMI: Non-Displaced Heart Sounds: Yes: S1, Split S2 Murmur: Yes: Systolic Murmur, Grade 1 Musculoskeletal: Yes: Muscle Weakness Extremities: Yes: Cool Edema: Yes Edema: LLE: 2+, RLE: 2+ Peripheral Pulses WNL: Yes Integumentary: Yes: Erythema, Venous Stasis Changes Neurological: Yes: Alert, Oriented, Weakness Psychiatric: Yes: Alert, Oriented, Other (anxiety) - Other Data Labs, Other Data: CBC, BMP 04/20/20 11:57 04/20/20 11:57 Troponin, BNP 04/20/20 04/20/20 11:57 15:36 Troponin I 0.19 H 0.21 H B-Natriuretic Peptide 86746.7 H Troponin, BNP 04/20/20 04/20/20 11:57 15:36 Troponin I 0.19 H 0.21 H B-Natriuretic Peptide 33460.7 H Abnormal Lab Results 04/20/20 04/20/20 04/20/20 11:57 11:57 15:36 RBC 3.43 L Hgb 10.6 L Hct 31.9 L Chloride 111 H Carbon Dioxide 18 L BUN 68.1 H Creatinine 2.2 H Random Glucose 148 H Iron Iron Saturation AST 38 H Alkaline Phosphatase 177 H Creatine Kinase Index 10.4 H 10.3 H CK-MB (CK-2) 18.6 H 16.3 H Troponin I 0.19 H 0.21 H B-Natriuretic Peptide 78250.7 H U Random Total Protein 04/20/20 04/20/20 20:20 21:50 RBC Hgb Hct Chloride Carbon Dioxide BUN Creatinine Random Glucose Iron 45 L Iron Saturation 14 L AST Alkaline Phosphatase Creatine Kinase Index CK-MB (CK-2) Troponin I B-Natriuretic Peptide U Random Total Protein 79.0 H Echo: Report Reviewed Ejection Fraction %: LVEF > or = 40 % Imaging - Results Chest X-ray: Image Reviewed EKG: Image Reviewed Assessment/Plan Acute/chronic diastolic CHF, with severe LVH. Hx PSVT; on diltiazem Elevated TNI, also noted 10/2019 Stress Lexiscan MIBI 10/2019 negative for ischemia DM CKD HTN HLD anemia overweight sedentary ?BPH (sees Dr. Valdes) persisten right basal infiltrate Rec: Continue diltiazem for HR control and BP. On lisinopril (HTN; DM; CHF). F/u with manager banking regarding renal dysfunction, use of diuretic. F/u BUN/Cr, electrolytes, daily weight, Is and Os. F/u anemia w/u
[2020-04-21 02:11] VITALS: BMI 28.5
[2020-04-21] MEDS: HEPARIN NA (PORCINE) 5,000 UNITS/ML 1ML VIAL SQ SCH ×3 (06:07→21:49)
[2020-04-21] MEDS: INSULIN SLIDING SCALE (NOVOLOG) 1 VIAL SQ SCH ×4 (06:08→21:48)
[2020-04-21 07:56] LABS: BASO % 1.1 % (0-2.0); EOS % 4.5 % (0-4.5); HEMATOCRIT 33.4 % (35.4-49); LYMPH % 27.7 % (8-40); MCH 30.4 pg (25.7-33.7); MCHC 32.9 g/dl (32.0-35.9); MEAN CELL VOLUME 92.6 fl (80-96); MEAN PLT VOLUME 8.8 fl (7.5-11.1); MONO % 10.3 % (3.8-10.2); NEUT % 56.4 % (42.8-82.8); PLATELET COUNT 278 K/MM3 (134-434); RBC 3.61 M/mm3 (4.00-5.60); RDW 15.4 % (11.9-15.9); WHITE BLOOD COUNT 9.1 K/mm3 (4.0-10.0)
[2020-04-21 08:38] LABS: ALBUMIN 3.7 g/dl (3.4-5.0); BLOOD UREA NITROGEN 62.5 mg/dL (7-18); CALCIUM 9.4 mg/dL (8.5-10.1); CREATININE 2.1 mg/dL (0.55-1.3); PHOSPHOROUS 4.4 mg/dL (2.5-4.9); POTASSIUM 4.3 mmol/L (3.5-5.1); TOT PROT 7.1 g/dl (6.4-8.2)
--- NOTE | 2020-04-21 08:53 | PN ---
Progress Note, Physician History of Present Illness: Mr. Dudley is a 59 yr old white man with PMHx CKD, PSVT, diastolic CHF (ECHO 10/2019: normal LVEF: severe LVH; abnormal diastolic compliance), chronically elevated troponin, obesity, right 7th rib suspected fracture (2017), DM, HTN, HDL, BPH, now admitted with scrotal swelling, weight gain, bilateral leg edema, abdoinal distention, and shortness of breath for the past 10 days. Pt claims compliance with medications. He noted he was having little urination for the past few days, despite taking PO furosemide; since receving IV furosemide in ER, he "filled the bottle". He is dealing with multiple emotionally stressful situations, including the need to find a new home for his and him. She has health issues of her own. 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 - Current Medication List Current Medications: Active Medications Atorvastatin Calcium (Lipitor -) 10 mg PO HS [facility] Last Admin: 04/20/20 22:34 Dose: 10 mg Documented by: Diltiazem HCl (Cardizem Cd -) 180 mg PO DAILY [facility] Furosemide (Lasix Injection -) 40 mg IVPUSH DAILY [facility] Heparin Sodium (Porcine) (Heparin -) 5,000 unit SQ TID [facility] Last Admin: 04/21/20 06:07 Dose: 5,000 unit Documented by: Insulin Aspart (Novolog Vial Sliding Scale -) 1 vial SQ ACHS [facility]; Protocol Last Admin: 04/21/20 06:08 Dose: Not Given Documented by: Lisinopril (Prinivil) 2.5 mg PO DAILY [facility] - Objective Vital Signs: Vital Signs Temperature 97.6 F 04/21/20 06:00 Pulse Rate 81 04/21/20 06:00 Respiratory Rate 18 04/21/20 06:00 Blood Pressure 135/74 04/21/20 06:00 O2 Sat by Pulse Oximetry (%) 97 04/21/20 01:47 Eyes: Yes: WNL, Conjunctiva Clear, EOM Intact HENT: Yes: WNL, Atraumatic, Normocephalic Neck: Yes: WNL, Supple, Trachea Midline Cardiovascular: Yes: WNL, Regular Rate and Rhythm Respiratory: Yes: WNL, Regular, CTA Bilaterally Gastrointestinal: Yes: WNL, Normal Bowel Sounds Genitourinary: Yes: Scrotal Edema Musculoskeletal: Yes: WNL Edema: Yes Integumentary: Yes: WNL Neurological: Yes: WNL, Alert, Oriented ...Motor Strength: WNL Psychiatric: Yes: WNL Labs: CBC, BMP 04/21/20 06:15 04/21/20 06:15 Assessment/Plan Acute/chronic diastolic CHF, with severe LVH. Hx PSVT; on diltiazem Elevated TNI, also noted 10/2019 Stress Lexiscan MIBI 10/2019 negative for ischemia DM CKD HTN HLD anemia overweight sedentary ?BPH (sees Dr. Valdes) persisten right basal infiltrate Rec: Continue diltiazem for HR control and BP. On lisinopril (HTN; DM; CHF). F/u with engagement manager regarding renal dysfunction, use of diuretic. F/u BUN/Cr, electrolytes, daily weight, Is and Os. F/u anemia w/u
[2020-04-21] MEDS: LISINOPRIL 5 MG TABLET (FP) PO SCH (09:34)
[2020-04-21] MEDS: FUROSEMIDE 40 MG/4 ML INJECTABLE VIAL IVPUSH SCH (09:34)
--- NOTE | 2020-04-21 10:27 | EKG ---
Test Reason : Blood Pressure : / mmHG Vent. Rate : 091 BPM Atrial Rate : 091 BPM P-R Int : 210 ms QRS Dur : 090 ms QT Int : 378 ms P-R-T Axes : 041 -75 094 degrees QTc Int : 464 ms SINUS RHYTHM WITH 1ST DEGREE A-V BLOCK LEFT AXIS DEVIATION INFERIOR INFARCT (CITED ON OR BEFORE 28-OCT-2019) ANTEROSEPTAL INFARCT (CITED ON OR BEFORE 26-OCT-2016) ABNORMAL ECG WHEN COMPARED WITH ECG OF 30-OCT-2019 12:50, [place] INTERVAL HAS INCREASED LEFT ANTERIOR FASCICULAR BLOCK IS NO LONGER PRESENT QUESTIONABLE CHANGE IN INITIAL FORCES OF INFERIOR LEADS NONSPECIFIC T WAVE ABNORMALITY, IMPROVED IN ANTEROLATERAL LEADS Confirmed by MD Tushar, Domenico ([id number]) on 04/21/2020 10:26:38 AM Referred By: Confirmed By:Domenico Finley MD
--- NOTE | 2020-04-21 10:57 | CONSULT ---
Consultation: REQUESTING PROVIDER: Dr. Zabala CONSULT REQUEST: We have been asked to medically evaluate this patient for CKD. HISTORY OF PRESENT ILLNESS: Pt is a 59 y/o male with diastolic CHF (echo 11/13 normal EF, grade II dysfunction), pulmonary hypertension, HTN, NIDDM, HLD who presents with gradual increase in lower extremity swelling x 4 days. He does not wear compression hose. He reports normally walking 2-3 miles daily, but now he is unable to walk more than a block and a half before he gets short of breath and sometimes chest tightness. No chest pain associated with this. He also reports scrotal swelling that began around the same time as well as reduced urine output. He denies loss of appetite, abdominal pain, or hx of BPH. He was hospitalized for fluid overload back in September/October this year with the same presentation, and he reports having been taking Lasix since then. He also reports he was unable to follow up with PCP and nephrology quickly enough, and now he is presenting with fluid. REVIEW OF SYSTEMS: CONSTITUTIONAL: Absent: loss of appetite, fatigue HEENT: Absent: throat pain, visual changes CARDIOVASCULAR: Present: lower extremity edema Absent: chest pain RESPIRATORY: Present: dyspnea on exertion Absent: cough GASTROINTESTINAL: Absent: abdominal pain, abdominal distension, nausea, vomiting GENITOURINARY: Present: scrotal swelling Absent: dysuria, frequency MUSCULOSKELETAL: Absent: myalgia SKIN: Absent: rash ENDOCRINE: Absent: unexplained weight gain, unexplained weight loss NEUROLOGIC: Absent: headache, dizziness PHYSICAL EXAMINATION Vital Signs - 24 hr 04/20/20 04/20/20 04/20/20 10:43 13:31 13:44 Temperature 98.7 F Pulse Rate 92 H Pulse Rate [ 83 Apical] Respiratory 18 18 27 H Rate Blood Pressure 114/69 Blood Pressure 129/67 [Right Arm] O2 Sat by Pulse 97 97 94 L Oximetry (%) 04/20/20 04/21/20 04/21/20 19:35 00:30 01:47 Temperature 98.3 F 98.1 F 98.1 F Pulse Rate 91 H Pulse Rate [ 84 83 Apical] Respiratory 20 19 19 Rate Blood Pressure 142/80 Blood Pressure 106/69 108/67 [Right Arm] O2 Sat by Pulse 98 96 97 Oximetry (%) 04/21/20 06:00 Temperature 97.6 F Pulse Rate 81 Pulse Rate [ Apical] Respiratory 18 Rate Blood Pressure 135/74 Blood Pressure [Right Arm] O2 Sat by Pulse Oximetry (%) GENERAL: A&Ox3, in no acute distress. HEAD: Normal with no signs of trauma. EYES: PERRL, EOMI. EARS, NOSE, THROAT: Ears normal, nares patent, moist mucous membranes. NECK: Normal range of motion, no JVD noted. LUNGS: Right base minimal crackles, good air entry. HEART: RRR, no murmur. ABDOMEN: Soft, nontender, not distended, normoactive bowel sounds. MUSCULOSKELETAL: Normal range of motion at all joints. UPPER EXTREMITIES: Warm, well-perfused, no edema. LOWER EXTREMITIES: Warm, well-perfused, +1 pitting edema b/l to mid shins, slightly raised area of erythema on b/l shins with some dryness. NEUROLOGICAL: Cranial nerves II-XII grossly intact. Normal speech. PSYCHIATRIC: Cooperative. Good eye contact. Appropriate mood and affect. SKIN: Warm, dry, normal turgor. Laboratory Results - last 24 hr 04/20/20 04/20/20 04/20/20 11:57 11:57 15:36 WBC 8.6 RBC 3.43 L Hgb 10.6 L Hct 31.9 L MCV 93.0 MCH 30.8 MCHC 33.2 RDW 15.0 Plt Count 264 MPV 9.0 Absolute Neuts (auto) Neutrophils % Lymphocytes % Monocytes % Eosinophils % Basophils % Nucleated RBC % Sodium 140 Potassium 4.4 Chloride 111 H Carbon Dioxide 18 L Anion Gap 12 BUN 68.1 H Creatinine 2.2 H Est GFR (CKD-EPI)AfAm 36.13 Est GFR (CKD-EPI)NonAf 31.17 POC Glucometer Random Glucose 148 H Calcium 8.9 Phosphorus Magnesium Iron TIBC Iron Saturation Unsaturated IBC Ferritin Total Bilirubin 1.0 AST 38 H ALT 57 Alkaline Phosphatase 177 H Creatine Kinase 178 157 Creatine Kinase Index 10.4 H 10.3 H CK-MB (CK-2) 18.6 H 16.3 H Troponin I 0.19 H 0.21 H B-Natriuretic Peptide 65839.7 H Total Protein 6.7 Albumin 3.4 Ur Random Creatinine U Random Total Protein Ur Random Sodium Ur Random Urea Nitrogn Protein/Creatinin Ratio 04/20/20 04/20/20 04/20/20 17:18 20:20 21:50 WBC RBC Hgb Hct MCV MCH MCHC RDW Plt Count MPV Absolute Neuts (auto) Neutrophils % Lymphocytes % Monocytes % Eosinophils % Basophils % Nucleated RBC % Sodium Potassium Chloride Carbon Dioxide Anion Gap BUN Creatinine Est GFR (CKD-EPI)AfAm Est GFR (CKD-EPI)NonAf POC Glucometer 167 Random Glucose Calcium Phosphorus Magnesium Iron 45 L TIBC 302 Iron Saturation 14 L Unsaturated IBC 257 Ferritin 282.0 Total Bilirubin AST ALT Alkaline Phosphatase Creatine Kinase Creatine Kinase Index CK-MB (CK-2) Troponin I B-Natriuretic Peptide Total Protein Albumin Ur Random Creatinine 45.0 U Random Total Protein 79.0 H Ur Random Sodium Ur Random Urea Nitrogn Protein/Creatinin Ratio 1.8 04/20/20 04/20/20 04/20/20 21:50 21:50 22:32 WBC RBC Hgb Hct MCV MCH MCHC RDW Plt Count MPV Absolute Neuts (auto) Neutrophils % Lymphocytes % Monocytes % Eosinophils % Basophils % Nucleated RBC % Sodium Potassium Chloride Carbon Dioxide Anion Gap BUN Creatinine Est GFR (CKD-EPI)AfAm Est GFR (CKD-EPI)NonAf POC Glucometer 175 Random Glucose Calcium Phosphorus Magnesium Iron TIBC Iron Saturation Unsaturated IBC Ferritin Total Bilirubin AST ALT Alkaline Phosphatase Creatine Kinase Creatine Kinase Index CK-MB (CK-2) Troponin I B-Natriuretic Peptide Total Protein Albumin Ur Random Creatinine U Random Total Protein Ur Random Sodium 97 Ur Random Urea Nitrogn 430 Protein/Creatinin Ratio 04/21/20 04/21/20 06:15 06:15 WBC 9.1 RBC 3.61 L Hgb 11.0 L Hct 33.4 L MCV 92.6 MCH 30.4 MCHC 32.9 RDW 15.4 Plt Count 278 MPV 8.8 Absolute Neuts (auto) 5.1 Neutrophils % 56.4 Lymphocytes % 27.7 Monocytes % 10.3 H Eosinophils % 4.5 Basophils % 1.1 Nucleated RBC % 0 Sodium 143 Potassium 4.3 Chloride 112 H Carbon Dioxide 22 Anion Gap 10 BUN 62.5 H Creatinine 2.1 H Est GFR (CKD-EPI)AfAm 38.22 Est GFR (CKD-EPI)NonAf 32.98 POC Glucometer Random Glucose 102 Calcium 9.4 Phosphorus 4.4 Magnesium 2.0 Iron TIBC Iron Saturation Unsaturated IBC Ferritin Total Bilirubin 1.0 AST 29 ALT 52 Alkaline Phosphatase 178 H Creatine Kinase Creatine Kinase Index CK-MB (CK-2) Troponin I B-Natriuretic Peptide Total Protein 7.1 Albumin 3.7 Ur Random Creatinine U Random Total Protein Ur Random Sodium Ur Random Urea Nitrogn Protein/Creatinin Ratio Active Medications Generic Name Dose Route Start Last Admin Trade Name Lexa PRN Reason Stop Dose Admin Atorvastatin Calcium 10 mg 04/20/20 22:00 04/20/20 22:34 Lipitor - PO 10 mg HS RUSSEL Administration Diltiazem HCl 180 mg 04/21/20 10:00 04/21/20 09:34 Cardizem Cd - PO 180 mg DAILY RUSSEL Administration Furosemide 40 mg 04/21/20 10:00 04/21/20 09:34 Lasix Injection - IVPUSH 40 mg DAILY RUSSEL Administration Heparin Sodium (Porcine) 5,000 unit 04/20/20 22:00 04/21/20 06:07 Heparin - SQ 5,000 unit TID RUSSEL Administration Insulin Aspart 1 vial 04/20/20 16:30 04/21/20 06:08 Novolog Vial Sliding Scale - SQ Not Given ACHS [facility] Protocol Lisinopril 2.5 mg 04/21/20 10:00 04/21/20 09:34 Prinivil PO 2.5 mg DAILY RUSSEL Administration ASSESSMENT/PLAN: Pt is a 59 y/o male with diastolic CHF (echo 11/13 normal EF, grade II dysfunction), pulmonary hypertension, HTN, NIDDM, HLD who presents with gradual increase in lower extremity swelling x 4 days. He is admitted for CHF exacerbation. #acute on chronic diastolic CHF -clinically fluid overloaded -BNP >30k -continue Lasix 40mg IV daily -monitor I/Os with daily weights and adjust Lasix as needed -cardiology following #ELISSA on CKD vs less likely ELISSA alone -admission at the beginning of the year had Cr in low 2s, more likely CKD -proteinuria present, also hx of DM -continue diuresis -hold metformin, add SSI -close follow-up as outpatient #HTN #NIDDM -lisinopril for renal protection/pressure control Dispo: We will continue to follow the patient. Thank you for this consultative opportunity. Visit type - Emergency Visit Emergency Visit: Yes ED Registration Date: 04/20/20 Care time: The patient presented to the Emergency Department on the above date and was hospitalized for further evaluation of their emergent condition. - New Patient This patient is new to me today: Yes Date on this admission: 04/21/20 - Critical Care Critical Care patient: No ATTENDING PHYSICIAN STATEMENT I saw and evaluated the patient. I reviewed the resident's note and discussed the case with the resident. I agree with the resident's findings and plan as documented. SUBJECTIVE: OBJECTIVE: ASSESSMENT AND PLAN:
--- NOTE | 2020-04-21 10:59 | PN ---
Teaching Attending Note Name of Resident: Camryn Gotti (Nephrology) ATTENDING PHYSICIAN STATEMENT I saw and evaluated the patient. I reviewed the resident's note and discussed the case with the resident. I agree with the resident's findings and plan as documented. Renal Pt is a 59 year old male with pmhx of dm, htn, hld, chf and ckd who presents to the ER with worsening edema and shortness of breath. He denies chest pain or palpitations. He does have ckd. He did not follow since last admission secondary to covid. He says that he was taking lasix 40 mg daily however it stopped working. He denies dysuria or hematuria. Pmhx ckd chf dm htn allergies egg asa tomato ros denies family hx non contrib social hx neg Laboratory Tests 10/31/19 11/01/19 04/20/20 05:40 05:20 11:57 Creatinine 2.2 H 2.1 H 2.2 H 04/21/20 06:15 Creatinine 2.1 H Current Medications Generic Name Dose Route Start Last Admin Trade Name Lexa PRN Reason Stop Dose Admin Atorvastatin Calcium 10 mg 04/20/20 22:00 04/20/20 22:34 Lipitor - PO 10 mg HS RUSSEL Administration Diltiazem HCl 180 mg 04/21/20 10:00 04/21/20 09:34 Cardizem Cd - PO 180 mg DAILY RUSSEL Administration Furosemide 40 mg 04/21/20 10:00 04/21/20 09:34 Lasix Injection - IVPUSH 40 mg DAILY RUSSEL Administration Heparin Sodium (Porcine) 5,000 unit 04/20/20 22:00 04/21/20 06:07 Heparin - SQ 5,000 unit TID RUSSEL Administration Insulin Aspart 1 vial 04/20/20 16:30 04/21/20 06:08 Novolog Vial Sliding Scale - SQ Not Given ACHS [facility] Protocol Lisinopril 2.5 mg 04/21/20 10:00 04/21/20 09:34 Prinivil PO 2.5 mg DAILY RUSSEL Administration cardio s1s2 pulm base crackles gi soft ext edema neuro awake and alert Impression 1. CKD 2. proteinuria 3. HTN 4. DM 5. CHF diastolic 6. 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
--- NOTE | 2020-04-21 15:56 | PN ---
Physical Exam: SUBJECTIVE: Patient seen and examined. Pt states scrotal edema is bothersome. States SOB improved since admission. OBJECTIVE: Vital Signs Period Temp Pulse Resp BP Sys/Saucedo Pulse Ox Last 24 Hr 97.6 F-98.3 F 81-98 18-20 106-142/67-80 96-98 GENERAL: The patient is awake, alert, and fully oriented, in no acute distress. HEAD: Normal with no signs of trauma. EYES: PERRL, extraocular movements intact, sclera anicteric, conjunctiva clear. No ptosis. ENT: Ears normal, nares patent, oropharynx clear without exudates, moist mucous membranes. NECK: Trachea midline, full range of motion, supple. LUNGS: Breath sounds equal, clear to auscultation bilaterally, no wheezes, no accessory muscle use, crackles noted in lung bases HEART: Regular rate and rhythm, S1, S2 without murmur, rub or gallop. ABDOMEN: Soft, nontender, nondistended, normoactive bowel sounds, no guarding, no rebound, no hepatosplenomegaly, no masses. EXTREMITIES: 2+ pulses, warm, well-perfused, mild edema, venous stasis skin changes observed NEUROLOGICAL: Cranial nerves II through XII grossly intact. Normal speech, gait not observed. PSYCH: Normal mood, normal affect. SKIN: Warm, dry, normal turgor, no rashes or lesions noted : scrotal edema Laboratory Results - last 24 hr 04/20/20 04/20/20 04/20/20 15:36 15:38 17:18 WBC RBC Hgb Hct MCV MCH MCHC RDW Plt Count MPV Absolute Neuts (auto) Neutrophils % Lymphocytes % Monocytes % Eosinophils % Basophils % Nucleated RBC % Sodium Potassium Chloride Carbon Dioxide Anion Gap BUN Creatinine Est GFR (CKD-EPI)AfAm Est GFR (CKD-EPI)NonAf POC Glucometer 167 Random Glucose Calcium Phosphorus Magnesium Iron TIBC Iron Saturation Unsaturated IBC Ferritin Total Bilirubin AST ALT Alkaline Phosphatase Creatine Kinase 157 Creatine Kinase Index 10.3 H CK-MB (CK-2) 16.3 H Troponin I 0.21 H Total Protein Albumin Vitamin B12 Serum Folate Ur Random Creatinine U Random Total Protein Ur Random Sodium Ur Random Urea Nitrogn Protein/Creatinin Ratio COVID-19 (SHAWN) Not detected 04/20/20 04/20/20 04/20/20 20:20 21:50 21:50 WBC RBC Hgb Hct MCV MCH MCHC RDW Plt Count MPV Absolute Neuts (auto) Neutrophils % Lymphocytes % Monocytes % Eosinophils % Basophils % Nucleated RBC % Sodium Potassium Chloride Carbon Dioxide Anion Gap BUN Creatinine Est GFR (CKD-EPI)AfAm Est GFR (CKD-EPI)NonAf POC Glucometer Random Glucose Calcium Phosphorus Magnesium Iron 45 L TIBC 302 Iron Saturation 14 L Unsaturated IBC 257 Ferritin 282.0 Total Bilirubin AST ALT Alkaline Phosphatase Creatine Kinase Creatine Kinase Index CK-MB (CK-2) Troponin I Total Protein Albumin Vitamin B12 Serum Folate Ur Random Creatinine 45.0 U Random Total Protein 79.0 H Ur Random Sodium 97 Ur Random Urea Nitrogn Protein/Creatinin Ratio 1.8 COVID-19 (SHAWN) 04/20/20 04/20/20 04/21/20 21:50 22:32 06:15 WBC 9.1 RBC 3.61 L Hgb 11.0 L Hct 33.4 L MCV 92.6 MCH 30.4 MCHC 32.9 RDW 15.4 Plt Count 278 MPV 8.8 Absolute Neuts (auto) 5.1 Neutrophils % 56.4 Lymphocytes % 27.7 Monocytes % 10.3 H Eosinophils % 4.5 Basophils % 1.1 Nucleated RBC % 0 Sodium Potassium Chloride Carbon Dioxide Anion Gap BUN Creatinine Est GFR (CKD-EPI)AfAm Est GFR (CKD-EPI)NonAf POC Glucometer 175 Random Glucose Calcium Phosphorus Magnesium Iron TIBC Iron Saturation Unsaturated IBC Ferritin Total Bilirubin AST ALT Alkaline Phosphatase Creatine Kinase Creatine Kinase Index CK-MB (CK-2) Troponin I Total Protein Albumin Vitamin B12 Serum Folate Ur Random Creatinine U Random Total Protein Ur Random Sodium Ur Random Urea Nitrogn 430 Protein/Creatinin Ratio COVID-19 (SHAWN) 04/21/20 06:15 WBC RBC Hgb Hct MCV MCH MCHC RDW Plt Count MPV Absolute Neuts (auto) Neutrophils % Lymphocytes % Monocytes % Eosinophils % Basophils % Nucleated RBC % Sodium 143 Potassium 4.3 Chloride 112 H Carbon Dioxide 22 Anion Gap 10 BUN 62.5 H Creatinine 2.1 H Est GFR (CKD-EPI)AfAm 38.22 Est GFR (CKD-EPI)NonAf 32.98 POC Glucometer Random Glucose 102 Calcium 9.4 Phosphorus 4.4 Magnesium 2.0 Iron TIBC Iron Saturation Unsaturated IBC Ferritin Total Bilirubin 1.0 AST 29 ALT 52 Alkaline Phosphatase 178 H Creatine Kinase Creatine Kinase Index CK-MB (CK-2) Troponin I 0.21 H Total Protein 7.1 Albumin 3.7 Vitamin B12 663 Serum Folate 21 H Ur Random Creatinine U Random Total Protein Ur Random Sodium Ur Random Urea Nitrogn Protein/Creatinin Ratio COVID-19 (SHAWN) Active Medications Generic Name Dose Route Start Last Admin Trade Name Lexa PRN Reason Stop Dose Admin Atorvastatin Calcium 10 mg 04/20/20 22:00 04/20/20 22:34 Lipitor - PO 10 mg HS RUSSEL Administration Diltiazem HCl 180 mg 04/21/20 10:00 04/21/20 09:34 Cardizem Cd - PO 180 mg DAILY RUSSEL Administration Furosemide 40 mg 04/21/20 10:00 04/21/20 09:34 Lasix Injection - IVPUSH 40 mg DAILY RUSSEL Administration Heparin Sodium (Porcine) 5,000 unit 04/20/20 22:00 04/21/20 14:39 Heparin - SQ 5,000 unit TID RUSSEL Administration Insulin Aspart 1 vial 04/20/20 16:30 04/21/20 12:00 Novolog Vial Sliding Scale - SQ 2 units ACHS RUSSEL Administration Protocol Lisinopril 2.5 mg 04/21/20 10:00 04/21/20 09:34 Prinivil PO 2.5 mg DAILY RUSSEL Administration ASSESSMENT/PLAN: pt is a 59 year old male with PMHx of diastolic HF, HTN, HLD, DM2 presenting with SOB and worsening leg edema x5 days compliant [place] [address]. Acute on Chronic HFpEF -IV lasix 40mg daily continued -Monitor I & Os and daily weights -Continue to monitor scrotal and lower extremity edema -Last echo on 10/2019 with EF 55-60% -BNP 18699 CKD stage III -Cr 2.1, BUN 62.5 -Baseline creatinine 2, continue to monitor -GFR 33 Normocytic anemia -H&H 11&33.4 -Iron 45, iron sat 14%, ferritin, B12 662, folate 21 -Can be likely due to multifactorial reason; follow up outpatient DM type 2 -Home metformin held -SSI and BGM monitoring HTN -Cardio and renal consulted -Continue IV lasix 40mg daily, Lisinopril 2.5mg PO daily, cardizem 180mg PO daily HLD -Continue home lipitor 10mg FEN: -No fluids -Monitor electrolytes -Sodium controlled diet Prophylaxis: Heparin 5000u TID Dispo: Admitted to tele. Receiving Lasix 40mgIV daily, continuing home HTN meds and statin. Consulted renal and cardio. Visit type - Emergency Visit Emergency Visit: Yes ED Registration Date: 04/20/20 Care time: The patient presented to the Emergency Department on the above date and was hospitalized for further evaluation of their emergent condition. - New Patient This patient is new to me today: Yes Date on this admission: 04/21/20 - Critical Care Critical Care patient: No ATTENDING PHYSICIAN STATEMENT I saw and evaluated the patient. I reviewed the resident's note and discussed the case with the resident. I agree with the resident's findings and plan as documented. SUBJECTIVE: OBJECTIVE: ASSESSMENT AND PLAN:
--- NOTE | 2020-04-21 16:17 | PN ---
Teaching Attending Note Name of Resident: Harley Terrazas ATTENDING PHYSICIAN STATEMENT I saw and evaluated the patient. I reviewed the resident's note and discussed the case with the resident. I agree with the resident's findings and plan as documented. SUBJECTIVE: Feeling better, less SOB. No cough/sputum/fever. OBJECTIVE: Afebrile, Hemodynamically Stable. Last Vital Signs Temp Pulse Resp BP Pulse Ox 98.3 F 98 H 18 132/73 97 04/21/20 14:00 04/21/20 14:00 04/21/20 14:00 04/21/20 14:00 04/21/20 01:47 HEENT - Atraumatic, Normocephalic. Heart - S1, S2, RRR Lungs - basal crackles Abdomen - soft, non-tender. Bowel Sounds normal. Extremities - No edema, venous stasis skin changes. Neuro - AAO x 3. Tone/Power normal. - scrotal edema + Laboratory Results - last 24 hr 04/20/20 04/20/20 04/20/20 15:36 15:38 17:18 WBC RBC Hgb Hct MCV MCH MCHC RDW Plt Count MPV Absolute Neuts (auto) Neutrophils % Lymphocytes % Monocytes % Eosinophils % Basophils % Nucleated RBC % Sodium Potassium Chloride Carbon Dioxide Anion Gap BUN Creatinine Est GFR (CKD-EPI)AfAm Est GFR (CKD-EPI)NonAf POC Glucometer 167 Random Glucose Calcium Phosphorus Magnesium Iron TIBC Iron Saturation Unsaturated IBC Ferritin Total Bilirubin AST ALT Alkaline Phosphatase Creatine Kinase 157 Creatine Kinase Index 10.3 H CK-MB (CK-2) 16.3 H Troponin I 0.21 H Total Protein Albumin Vitamin B12 Serum Folate Ur Random Creatinine U Random Total Protein Ur Random Sodium Ur Random Urea Nitrogn Protein/Creatinin Ratio COVID-19 (SHAWN) Not detected 04/20/20 04/20/20 04/20/20 20:20 21:50 21:50 WBC RBC Hgb Hct MCV MCH MCHC RDW Plt Count MPV Absolute Neuts (auto) Neutrophils % Lymphocytes % Monocytes % Eosinophils % Basophils % Nucleated RBC % Sodium Potassium Chloride Carbon Dioxide Anion Gap BUN Creatinine Est GFR (CKD-EPI)AfAm Est GFR (CKD-EPI)NonAf POC Glucometer Random Glucose Calcium Phosphorus Magnesium Iron 45 L TIBC 302 Iron Saturation 14 L Unsaturated IBC 257 Ferritin 282.0 Total Bilirubin AST ALT Alkaline Phosphatase Creatine Kinase Creatine Kinase Index CK-MB (CK-2) Troponin I Total Protein Albumin Vitamin B12 Serum Folate Ur Random Creatinine 45.0 U Random Total Protein 79.0 H Ur Random Sodium 97 Ur Random Urea Nitrogn Protein/Creatinin Ratio 1.8 COVID-19 (SHAWN) 04/20/20 04/20/20 04/21/20 21:50 22:32 06:15 WBC 9.1 RBC 3.61 L Hgb 11.0 L Hct 33.4 L MCV 92.6 MCH 30.4 MCHC 32.9 RDW 15.4 Plt Count 278 MPV 8.8 Absolute Neuts (auto) 5.1 Neutrophils % 56.4 Lymphocytes % 27.7 Monocytes % 10.3 H Eosinophils % 4.5 Basophils % 1.1 Nucleated RBC % 0 Sodium Potassium Chloride Carbon Dioxide Anion Gap BUN Creatinine Est GFR (CKD-EPI)AfAm Est GFR (CKD-EPI)NonAf POC Glucometer 175 Random Glucose Calcium Phosphorus Magnesium Iron TIBC Iron Saturation Unsaturated IBC Ferritin Total Bilirubin AST ALT Alkaline Phosphatase Creatine Kinase Creatine Kinase Index CK-MB (CK-2) Troponin I Total Protein Albumin Vitamin B12 Serum Folate Ur Random Creatinine U Random Total Protein Ur Random Sodium Ur Random Urea Nitrogn 430 Protein/Creatinin Ratio COVID-19 (SHAWN) 04/21/20 06:15 WBC RBC Hgb Hct MCV MCH MCHC RDW Plt Count MPV Absolute Neuts (auto) Neutrophils % Lymphocytes % Monocytes % Eosinophils % Basophils % Nucleated RBC % Sodium 143 Potassium 4.3 Chloride 112 H Carbon Dioxide 22 Anion Gap 10 BUN 62.5 H Creatinine 2.1 H Est GFR (CKD-EPI)AfAm 38.22 Est GFR (CKD-EPI)NonAf 32.98 POC Glucometer Random Glucose 102 Calcium 9.4 Phosphorus 4.4 Magnesium 2.0 Iron TIBC Iron Saturation Unsaturated IBC Ferritin Total Bilirubin 1.0 AST 29 ALT 52 Alkaline Phosphatase 178 H Creatine Kinase Creatine Kinase Index CK-MB (CK-2) Troponin I 0.21 H Total Protein 7.1 Albumin 3.7 Vitamin B12 663 Serum Folate 21 H Ur Random Creatinine U Random Total Protein Ur Random Sodium Ur Random Urea Nitrogn Protein/Creatinin Ratio COVID-19 (SHAWN) Current Medications Generic Name Dose Route Start Last Admin Trade Name Freq PRN Reason Stop Dose Admin Atorvastatin Calcium 10 mg 04/20/20 22:00 04/20/20 22:34 Lipitor - PO 10 mg HS RUSSEL Administration Diltiazem HCl 180 mg 04/21/20 10:00 04/21/20 09:34 Cardizem Cd - PO 180 mg DAILY RUSSEL Administration Furosemide 40 mg 04/21/20 10:00 04/21/20 09:34 Lasix Injection - IVPUSH 40 mg DAILY RUSSEL Administration Heparin Sodium (Porcine) 5,000 unit 04/20/20 22:00 04/21/20 14:39 Heparin - SQ 5,000 unit TID RUSSEL Administration Insulin Aspart 1 vial 04/20/20 16:30 04/21/20 12:00 Novolog Vial Sliding Scale - SQ 2 units ACHS RUSSEL Administration Protocol Lisinopril 2.5 mg 04/21/20 10:00 04/21/20 09:34 Prinivil PO 2.5 mg DAILY RUSSEL Administration Home Medications Medication Instructions Recorded Latanoprost 0.005% Eye Drops 1 drop HS 11/09/16 [Xalatan 0.005% Eye Drops -] Atorvastatin Ca [Lipitor] 10 mg PO HS #60 tablet 11/01/19 Diltiazem Cd [Cardizem Cd -] 180 mg PO DAILY #60 cap.cd.24h 11/01/19 Furosemide [Lasix] 40 mg PO DAILY #60 tablet 11/01/19 Lisinopril [Prinivil] 2.5 mg PO DAILY #60 tablet 11/01/19 metFORMIN HCL [Metformin HCl] 500 mg PO BID #60 tablet 11/01/19 ASSESSMENT AND PLAN: 59 year old male with history of DM 2, HTN, HLD, Chronic Diastolic CHF (Echo 11/13 EF 55-60%), presents with SOB, worse on exertion, scrotal swelling, and worsening LE edema with orthopnea. 1. Acute on Chronic Diastolic CHF IV Lasix diuresis ongoing. Monitor I/Os, Daily weights, renal function Elevated tropI, chronic, flat. Negative MIBI 11/13. 2. CKD 3 - Stable, will monitor. 3. Normocytic Anemia, etiology likely multifactorial. Iron 45/Iron Sat 14% B12 663/Folate 21 Can supplement Iron Further work-up as out-patient. 4. DM 2 - Metformin held. Maintian on Novolog sliding scale. 5. HTN - Continue Lisinopril, Cardizem. 6. HLD - continue Atorvastatin. 7. Hx PSVT - continue Diltiazem 8. Persistent R basilar infiltrate on CXR - no infective symptoms. For out- patient CT and Pulmonary referral. DVT Px - Heparin SQ
[2020-04-21] MEDS: FERROUS SO4 325 MG TABLET (FP) PO SCH (21:48)
[2020-04-21] MEDS: DOCUSATE SODIUM 100 MG CAPSULE (FP) PO SCH (21:48)
[2020-04-21] MEDS: ATORVASTATIN CA 10 MG TABLET (FP) PO SCH (21:48)
[2020-04-21] MEDS ORDERED: LATANOPROST 0.005% OPHTH SOLN 2.5ML BOTTLE OU ONE (23:20)
[2020-04-22] MEDS: HEPARIN NA (PORCINE) 5,000 UNITS/ML 1ML VIAL SQ SCH ×3 (06:00→21:50)
[2020-04-22] MEDS: INSULIN SLIDING SCALE (NOVOLOG) 1 VIAL SQ SCH ×4 (07:04→22:13)
[2020-04-22 07:29] LABS: BASO % 1.1 % (0-2.0); EOS % 4.2 % (0-4.5); HEMATOCRIT 32.9 % (35.4-49); LYMPH % 22.7 % (8-40); MCH 30.6 pg (25.7-33.7); MCHC 33.3 g/dl (32.0-35.9); MEAN CELL VOLUME 91.8 fl (80-96); MONO % 10.9 % (3.8-10.2); NEUT % 61.1 % (42.8-82.8); PLATELET COUNT 290 K/MM3 (134-434); RBC 3.59 M/mm3 (4.00-5.60); RDW 15.3 % (11.9-15.9); WHITE BLOOD COUNT 9.1 K/mm3 (4.0-10.0)
[2020-04-22 08:20] LABS: ALBUMIN 3.7 g/dl (3.4-5.0); BILIRUBIN,TOTAL 1.1 mg/dL (0.2-1); BLOOD UREA NITROGEN 58.4 mg/dL (7-18); CALCIUM 9.1 mg/dL (8.5-10.1); CREATININE 1.9 mg/dL (0.55-1.3); MAGNESIUM 2.1 mg/dL (1.8-2.4); PHOSPHOROUS 4.2 mg/dL (2.5-4.9); POTASSIUM 4.4 mmol/L (3.5-5.1); TOT PROT 7.1 g/dl (6.4-8.2)
[2020-04-22] MEDS: FERROUS SO4 325 MG TABLET (FP) PO SCH ×2 (09:16→21:50)
[2020-04-22] MEDS: DOCUSATE SODIUM 100 MG CAPSULE (FP) PO SCH ×2 (09:16→21:50)
[2020-04-22] MEDS: LISINOPRIL 5 MG TABLET (FP) PO SCH (09:16)
[2020-04-22] MEDS: FUROSEMIDE 40 MG/4 ML INJECTABLE VIAL IVPUSH SCH (09:16)
[2020-04-22] MEDS ORDERED: FUROSEMIDE 40 MG/4 ML INJECTABLE VIAL IVPUSH ONE (13:00)
--- NOTE | 2020-04-22 13:40 | PN ---
Progress Note, Physician History of Present Illness: Pt seen and examined at bedside. He is awake and alert. He denies shortness of breath. He feel that his edema is improving. - Current Medication List Current Medications: Active Medications Atorvastatin Calcium (Lipitor -) 10 mg PO HS [facility] Last Admin: 04/21/20 21:48 Dose: 10 mg Documented by: Diltiazem HCl (Cardizem Cd -) 180 mg PO DAILY [facility] Last Admin: 04/22/20 09:16 Dose: 180 mg Documented by: Docusate Sodium (Colace -) 100 mg PO BID [facility] Last Admin: 04/22/20 09:16 Dose: 100 mg Documented by: Ferrous Sulfate (Feosol -) 325 mg PO BID [facility] Last Admin: 04/22/20 09:16 Dose: 325 mg Documented by: Furosemide (Lasix Injection -) 40 mg IVPUSH DAILY [facility] Last Admin: 04/22/20 09:16 Dose: 40 mg Documented by: Heparin Sodium (Porcine) (Heparin -) 5,000 unit SQ TID [facility] Last Admin: 04/22/20 06:00 Dose: 5,000 unit Documented by: Insulin Aspart (Novolog Vial Sliding Scale -) 1 vial SQ [facility]; Protocol Last Admin: 04/22/20 12:00 Dose: Not Given Documented by: Latanoprost (Xalatan 0.005% Eye Drops -) 1 drop OU [facility] Lisinopril (Prinivil) 2.5 mg PO DAILY [facility] Last Admin: 04/22/20 09:16 Dose: 2.5 mg Documented by: - Objective Vital Signs: Vital Signs Temperature 98.1 F 04/22/20 09:25 Pulse Rate 96 H 04/22/20 09:25 Respiratory Rate 24 H 04/22/20 09:25 Blood Pressure 143/88 04/22/20 09:25 O2 Sat by Pulse Oximetry (%) 96 04/22/20 09:25 Constitutional: Yes: Calm Eyes: Yes: Conjunctiva Clear HENT: Yes: Atraumatic Neck: Yes: Supple Cardiovascular: Yes: S1, S2 Respiratory: Yes: CTA Bilaterally Gastrointestinal: Yes: Soft Genitourinary: Yes: WNL Musculoskeletal: Yes: WNL Edema: Yes Edema: LLE: 2+, RLE: 2+ Neurological: Yes: Oriented Psychiatric: Yes: Oriented Labs: CBC, BMP 04/22/20 05:40 04/22/20 05:40 Assessment/Plan Current Medications Generic Name Dose Route Start Last Admin Trade Name Lexa PRN Reason Stop Dose Admin Atorvastatin Calcium 10 mg 04/20/20 22:00 04/21/20 21:48 Lipitor - PO 10 mg HS [facility] Administration Diltiazem HCl 180 mg 04/21/20 10:00 04/22/20 09:16 Cardizem Cd - PO 180 mg DAILY [facility] Administration Docusate Sodium 100 mg 04/21/20 22:00 04/22/20 09:16 Colace - PO 100 mg BID [facility] Administration Ferrous Sulfate 325 mg 04/21/20 22:00 04/22/20 09:16 Feosol - PO 325 mg BID [facility] Administration Furosemide 40 mg 04/21/20 10:00 04/22/20 09:16 Lasix Injection - IVPUSH 40 mg DAILY [facility] Administration Heparin Sodium (Porcine) 5,000 unit 04/20/20 22:00 04/22/20 06:00 Heparin - SQ 5,000 unit TID [facility] Administration Insulin Aspart 1 vial 04/20/20 16:30 04/22/20 12:00 Novolog Vial Sliding Scale - SQ Not Given ACHS [facility] Protocol Latanoprost 1 drop 04/22/20 22:00 Xalatan 0.005% Eye Drops - OU HS [facility] Lisinopril 2.5 mg 04/21/20 10:00 04/22/20 09:16 Prinivil PO 2.5 mg DAILY [facility] Administration Impression 1. CKD 2. proteinuria 3. HTN 4. DM 5. CHF diastolic 6. hld Plan - cont lasix - discussed diet - will increase lisinopril to 5 mg - check ua and prot to shellfish weigher ratio - will need outpt follow up as well - renal function stable
--- NOTE | 2020-04-22 16:15 | PN ---
Physical Exam: SUBJECTIVE: Patient seen and examined at bedside, he states he is feeling better. but not at his baseline. OBJECTIVE: Vital Signs Period Temp Pulse Resp BP Sys/Saucedo Pulse Ox Last 24 Hr 97.6 F-98.2 F 80-96 20-24 133-148/71-88 96-98 GENERAL: The patient is awake, alert, and fully oriented, in no acute distress. HEAD: Normal with no signs of trauma. NECK: Trachea midline, full range of motion, supple. LUNGS: Breath sounds equal, bibasilar crackles. , no accessory muscle use. HEART: Regular rate and rhythm, S1, S2 ABDOMEN: Soft, nontender, nondistended, normoactive bowel sounds, no guarding EXTREMITIES: 2+ pulses, warm, well-perfused,2+ pitting edema, hyperpigmentation CBC, BMP 04/22/20 05:40 04/22/20 05:40 Active Medications Generic Name Dose Route Start Last Admin Trade Name Freq PRN Reason Stop Dose Admin Atorvastatin Calcium 10 mg 04/20/20 22:00 04/21/20 21:48 Lipitor - PO 10 mg HS [facility] Administration Diltiazem HCl 180 mg 04/21/20 10:00 04/22/20 09:16 Cardizem Cd - PO 180 mg DAILY [facility] Administration Docusate Sodium 100 mg 04/21/20 22:00 04/22/20 09:16 Colace - PO 100 mg BID [facility] Administration Ferrous Sulfate 325 mg 04/21/20 22:00 04/22/20 09:16 Feosol - PO 325 mg BID [facility] Administration Furosemide 40 mg 04/21/20 10:00 04/22/20 09:16 Lasix Injection - IVPUSH 40 mg DAILY [facility] Administration Heparin Sodium (Porcine) 5,000 unit 04/20/20 22:00 04/22/20 13:47 Heparin - SQ 5,000 unit TID [facility] Administration Insulin Aspart 1 vial 04/20/20 16:30 04/22/20 12:00 Novolog Vial Sliding Scale - SQ Not Given ACHS [facility] Protocol Latanoprost 1 drop 04/22/20 22:00 Xalatan 0.005% Eye Drops - OU HS [facility] Lisinopril 5 mg 04/22/20 13:41 Prinivil PO DAILY [facility] ASSESSMENT/PLAN: 59yo M PMH DM, HTN, HLD, HFpEF (Echo 3/20 EF 55-60%),p/w SOB, Dyspnea on exertion, scrotal swelling, and worsening LE edema, orthopnea. admitted for acute heart failure Acute on Chronic HFpEF - pt on lasix 40 IVP daily. will give extra 40 IVP today - cont to trend daily weights, I/Os - Negative MIBI 11/13. - cardio recs appreciated - cont tele monitoring CKD - cont to monitor -Cr 1.9 Normocytic Anemia -c/w iron supplements - workup outpt - no signs of acute bleed DM - Metformin held. - c/w ISS and BGM HTN - c/w Lisinopril, Cardizem. HLD - c/w Atorvastatin. Hx PSVT - continue Diltiazem - c/w tele monitoring Persistent R basilar infiltrate on CXR - afebrile, no white count - out-patient CT and Pulmonary referral. DVT Px - Heparin SQ ATTENDING PHYSICIAN STATEMENT I saw and evaluated the patient. I reviewed the resident's note and discussed the case with the resident. I agree with the resident's findings and plan as documented. SUBJECTIVE: OBJECTIVE: ASSESSMENT AND PLAN:
--- NOTE | 2020-04-22 16:47 | PN ---
Teaching Attending Note Name of Resident: Jacquelin Riddle ATTENDING PHYSICIAN STATEMENT I saw and evaluated the patient. I reviewed the resident's note and discussed the case with the resident. I agree with the resident's findings and plan as documented. SUBJECTIVE: Feeling better, less SOB, LE edema improving. No cough/sputum/fever. OBJECTIVE: Afebrile, Hemodynamically Stable. Last Vital Signs Temp Pulse Resp BP Pulse Ox 98 F 80 20 133/78 96 04/22/20 14:00 04/22/20 14:00 04/22/20 14:04/22/20 14:00 04/22/20 09:25 Heart - S1, S2, RRR Lungs - basal crackles Abdomen - soft, non-tender. Bowel Sounds normal. Extremities - Edema +, venous stasis skin changes. Neuro - AAO x 3. Tone/Power normal. - scrotal edema + Laboratory Results - last 24 hr 04/21/20 04/21/20 04/22/20 17:19 21:47 05:40 WBC 9.1 RBC 3.59 L Hgb 11.0 L Hct 32.9 L MCV 91.8 MCH 30.6 MCHC 33.3 RDW 15.3 Plt Count 290 MPV 9.0 Absolute Neuts (auto) 5.6 Neutrophils % 61.1 Lymphocytes % 22.7 Monocytes % 10.9 H Eosinophils % 4.2 Basophils % 1.1 Nucleated RBC % 0 Sodium Potassium Chloride Carbon Dioxide Anion Gap BUN Creatinine Est GFR (CKD-EPI)AfAm Est GFR (CKD-EPI)NonAf POC Glucometer 143 221 Random Glucose Calcium Phosphorus Magnesium Total Bilirubin AST ALT Alkaline Phosphatase Total Protein Albumin 04/22/20 04/22/20 05:40 11:06 WBC RBC Hgb Hct MCV MCH MCHC RDW Plt Count MPV Absolute Neuts (auto) Neutrophils % Lymphocytes % Monocytes % Eosinophils % Basophils % Nucleated RBC % Sodium 144 Potassium 4.4 Chloride 113 H Carbon Dioxide 23 Anion Gap 8 BUN 58.4 H Creatinine 1.9 H Est GFR (CKD-EPI)AfAm 43.14 Est GFR (CKD-EPI)NonAf 37.22 POC Glucometer 150 Random Glucose 117 H Calcium 9.1 Phosphorus 4.2 Magnesium 2.1 Total Bilirubin 1.1 H AST 37 ALT 54 Alkaline Phosphatase 177 H Total Protein 7.1 Albumin 3.7 Current Medications Generic Name Dose Route Start Last Admin Trade Name Freq PRN Reason Stop Dose Admin Atorvastatin Calcium 10 mg 04/20/20 22:00 04/21/20 21:48 Lipitor - PO 10 mg HS [facility] Administration Diltiazem HCl 180 mg 04/21/20 10:00 04/22/20 09:16 Cardizem Cd - PO 180 mg DAILY [facility] Administration Docusate Sodium 100 mg 04/21/20 22:00 04/22/20 09:16 Colace - PO 100 mg BID [facility] Administration Ferrous Sulfate 325 mg 04/21/20 22:00 04/22/20 09:16 Feosol - PO 325 mg BID [facility] Administration Furosemide 40 mg 04/21/20 10:00 04/22/20 09:16 Lasix Injection - IVPUSH 40 mg DAILY [facility] Administration Heparin Sodium (Porcine) 5,000 unit 04/20/20 22:00 04/22/20 13:47 Heparin - SQ 5,000 unit TID [facility] Administration Insulin Aspart 1 vial 04/20/20 16:30 04/22/20 12:00 Novolog Vial Sliding Scale - SQ Not Given ACHS [facility] Protocol Latanoprost 1 drop 04/22/20 22:00 Xalatan 0.005% Eye Drops - OU HS [facility] Lisinopril 5 mg 04/22/20 13:41 Prinivil PO DAILY [facility] Home Medications Medication Instructions Recorded Latanoprost 0.005% Eye Drops 1 drop HS 11/09/16 [Xalatan 0.005% Eye Drops -] Atorvastatin Ca [Lipitor] 10 mg PO HS #60 tablet 11/01/19 Diltiazem Cd [Cardizem Cd -] 180 mg PO DAILY #60 cap.cd.24h 11/01/19 Furosemide [Lasix] 40 mg PO DAILY #60 tablet 11/01/19 Lisinopril [Prinivil] 2.5 mg PO DAILY #60 tablet 11/01/19 metFORMIN HCL [Metformin HCl] 500 mg PO BID #60 tablet 11/01/19 ASSESSMENT AND PLAN: 59 year old male with history of DM 2, HTN, HLD, Chronic Diastolic CHF (Echo 11/13 EF 55-60%), presents with SOB, worse on exertion, scrotal swelling, and worsening LE edema with orthopnea. 1. Acute on Chronic Diastolic CHF IV Lasix diuresis ongoing. Monitor I/Os, Daily weights, renal function Elevated TropI, chronic, flat. Negative MIBI 11/13. Evaluated by Cardiology - 2. CKD 3 - Stable, will monitor. Proteinuria - Lisinopril dose increased to 5 mg by Nephrology 3. Normocytic Anemia, etiology likely multifactorial. Iron 45/Iron Sat 14% B12 663/Folate 21 Can supplement Iron Further work-up as out-patient. 4. DM 2 - Metformin held. Maintain on Novolog sliding scale. 5. HTN - Continue Lisinopril, Cardizem. 6. HLD - continue Atorvastatin. 7. Hx PSVT - continue Diltiazem 8. Persistent R basilar infiltrate on CXR - no infective symptoms. For out- patient CT and Pulmonary referral. DVT Px - Heparin SQ
[2020-04-22] MEDS: ATORVASTATIN CA 10 MG TABLET (FP) PO SCH (21:50)
[2020-04-22] MEDS: LATANOPROST 0.005% OPHTH SOLN 2.5ML BOTTLE OU SCH (22:14)
--- NOTE | 2020-04-23 05:07 | PN ---
Progress Note, Physician Chief Complaint: Pt A&Ox3; denies chest pain or dyspnea; legs feel less swollen and heavy History of Present Illness: Mr. Dudley is a 59 yr old white man with PMHx CKD, PSVT, diastolic CHF (ECHO 10/2019: normal LVEF: severe LVH; abnormal diastolic compliance), chronically elevated troponin, obesity, right 7th rib suspected fracture (2017), DM, HTN, HDL, BPH, now admitted with scrotal swelling, weight gain, bilateral leg edema, abdoinal distention, and shortness of breath for the past 10 days. Pt claims compliance with medications. He noted he was having little urination for the past few days, despite taking PO furosemide; since receving IV furosemide in ER, he "filled the bottle". He is dealing with multiple emotionally stressful situations, including the need to find a new home for his and him. She has health issues of her own. 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 Pt was admitted 10/2019 for similar symptoms and signs. Stress Lexiscan MIBI 10/2019: no myocardial ischemia. - Current Medication List Current Medications: Active Medications Atorvastatin Calcium (Lipitor -) 10 mg PO HS [facility] Last Admin: 04/22/20 21:50 Dose: 10 mg Documented by: Diltiazem HCl (Cardizem Cd -) 180 mg PO DAILY [facility] Last Admin: 04/22/20 09:16 Dose: 180 mg Documented by: Docusate Sodium (Colace -) 100 mg PO BID [facility] Last Admin: 04/22/20 21:50 Dose: 100 mg Documented by: Ferrous Sulfate (Feosol -) 325 mg PO BID [facility] Last Admin: 04/22/20 21:50 Dose: 325 mg Documented by: Furosemide (Lasix Injection -) 40 mg IVPUSH DAILY [facility] Last Admin: 04/22/20 09:16 Dose: 40 mg Documented by: Heparin Sodium (Porcine) (Heparin -) 5,000 unit SQ TID [facility] Last Admin: 04/22/20 21:50 Dose: 5,000 unit Documented by: Insulin Aspart (Novolog Vial Sliding Scale -) 1 vial SQ ACHS [facility]; Protocol Last Admin: 04/22/20 22:13 Dose: 2 units Documented by: Latanoprost (Xalatan 0.005% Eye Drops -) 1 drop OU HS [facility] Last Admin: 04/22/20 22:14 Dose: 1 drop Documented by: Lisinopril (Prinivil) 5 mg PO DAILY [facility] - Objective Vital Signs: Vital Signs Temperature 98.1 F 04/23/20 03:56 Pulse Rate 81 04/23/20 03:56 Respiratory Rate 04/23/20 03:56 Blood Pressure 142/91 04/23/20 03:56 O2 Sat by Pulse Oximetry (%) 98 04/23/20 03:56 Constitutional: Yes: No Distress Eyes: Yes: WNL HENT: Yes: WNL Cardiovascular: Yes: S1 (split), S2 Respiratory: Yes: Regular Gastrointestinal: Yes: Soft, Abdomen, Obese ...Rectal Exam: Yes: Deferred Genitourinary: No: Anuria Breast(s): Yes: WNL Musculoskeletal: Yes: Muscle Weakness Extremities: Yes: Cool, Erythema (mild; improving) Edema: Yes Edema: LLE: 1+, RLE: 1+ Integumentary: Yes: Erythema, Venous Stasis Changes, Other (excoriations LEs) Neurological: Yes: WNL Psychiatric: Yes: WNL Labs: CBC, BMP 04/22/20 05:40 04/22/20 05:40 - ....Imaging Chest X-ray: Image Reviewed EKG: Image Reviewed Assessment/Plan Acute/chronic diastolic CHF, with severe LVH. Hx PSVT; on diltiazem Elevated TNI, also noted 10/2019 Stress Lexiscan MIBI 10/2019 negative for ischemia DM CKD HTN HLD anemia overweight sedentary ?BPH (sees Dr. Valdes) persistent right basal infiltrate Rec: COVID negative. Continue diltiazem CD for HR control and BP. On lisinopril (HTN; DM; CHF). F/u with online tutor regarding renal dysfunction; on IV furosemide. F/u BUN/Cr, electrolytes, daily weight, Is and Os. F/u anemia w/u
[2020-04-23] MEDS: HEPARIN NA (PORCINE) 5,000 UNITS/ML 1ML VIAL SQ SCH ×3 (05:40→23:08)
[2020-04-23] MEDS: INSULIN SLIDING SCALE (NOVOLOG) 1 VIAL SQ SCH ×4 (06:21→23:08)
[2020-04-23 07:59] LABS: HEMATOCRIT 32.2 % (35.4-49); HEMOGLOBIN 10.8 GM/dL (11.7-16.9); MCH 30.5 pg (25.7-33.7); MCHC 33.5 g/dl (32.0-35.9); MEAN PLT VOLUME 8.9 fl (7.5-11.1); PLATELET COUNT 284 K/MM3 (134-434); RBC 3.53 M/mm3 (4.00-5.60); RDW 15.3 % (11.9-15.9); WHITE BLOOD COUNT 9.6 K/mm3 (4.0-10.0)
[2020-04-23 08:09] LABS: ALBUMIN 3.6 g/dl (3.4-5.0); BILIRUBIN,TOTAL 1.4 mg/dL (0.2-1); BLOOD UREA NITROGEN 56.2 mg/dL (7-18); CALCIUM 9.1 mg/dL (8.5-10.1); PHOSPHOROUS 3.9 mg/dL (2.5-4.9); POTASSIUM 4.3 mmol/L (3.5-5.1); TOT PROT 6.9 g/dl (6.4-8.2)
--- NOTE | 2020-04-23 08:28 | PN ---
Progress Note, Physician History of Present Illness: Mr. Dudley is a 59 yr old white man with PMHx CKD, PSVT, diastolic CHF (ECHO 10/2019: normal LVEF: severe LVH; abnormal diastolic compliance), chronically elevated troponin, obesity, right 7th rib suspected fracture (2017), DM, HTN, HDL, BPH, now admitted with scrotal swelling, weight gain, bilateral leg edema, abdoinal distention, and shortness of breath for the past 10 days. Pt claims compliance with medications. He noted he was having little urination for the past few days, despite taking PO furosemide; since receving IV furosemide in ER, he "filled the bottle". He is dealing with multiple emotionally stressful situations, including the need to find a new home for his and him. She has health issues of her own. 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 - Current Medication List Current Medications: Active Medications Atorvastatin Calcium (Lipitor -) 10 mg PO [facility] Last Admin: 04/22/20 21:50 Dose: 10 mg Documented by: Diltiazem HCl (Cardizem Cd -) 180 mg PO DAILY [facility] Last Admin: 04/22/20 09:16 Dose: 180 mg Documented by: Docusate Sodium (Colace -) 100 mg PO BID [facility] Last Admin: 04/22/20 21:50 Dose: 100 mg Documented by: Ferrous Sulfate (Feosol -) 325 mg PO BID [facility] Last Admin: 04/22/20 21:50 Dose: 325 mg Documented by: Furosemide (Lasix Injection -) 40 mg IVPUSH DAILY [facility] Last Admin: 04/22/20 09:16 Dose: 40 mg Documented by: Heparin Sodium (Porcine) (Heparin -) 5,000 unit SQ TID [facility] Last Admin: 04/23/20 05:40 Dose: 5,000 unit Documented by: Insulin Aspart (Novolog Vial Sliding Scale -) 1 vial SQ [facility]; Protocol Last Admin: 04/23/20 06:21 Dose: Not Given Documented by: Latanoprost (Xalatan 0.005% Eye Drops -) 1 drop OU HS [facility] Last Admin: 04/22/20 22:14 Dose: 1 drop Documented by: Lisinopril (Prinivil) 5 mg PO DAILY [facility] - Objective Vital Signs: Vital Signs Temperature 97.9 F 04/23/20 05:41 Pulse Rate 78 08/28/20 05:41 Respiratory Rate 20 04/23/20 05:41 Blood Pressure 124/71 04/23/20 05:41 O2 Sat by Pulse Oximetry (%) 98 04/23/20 03:56 Eyes: Yes: WNL, Conjunctiva Clear, EOM Intact HENT: Yes: WNL, Atraumatic, Normocephalic Neck: Yes: WNL, Supple, Trachea Midline Cardiovascular: Yes: WNL, Regular Rate and Rhythm Respiratory: Yes: WNL, Regular, CTA Bilaterally Gastrointestinal: Yes: WNL, Normal Bowel Sounds Genitourinary: Yes: Scrotal Edema Musculoskeletal: Yes: WNL Extremities: Yes: WNL Edema: Yes Integumentary: Yes: WNL Neurological: Yes: WNL, Alert, Oriented ...Motor Strength: WNL Psychiatric: Yes: WNL Labs: CBC, BMP 04/23/20 05:51 04/23/20 05:51 Assessment/Plan Acute/chronic diastolic CHF, with severe LVH. Hx PSVT; on diltiazem Elevated TNI, also noted 10/2019 Stress Lexiscan MIBI 10/2019 negative for ischemia DM CKD HTN HLD anemia overweight sedentary ?BPH (sees Dr. Valdes) persistent right basal infiltrate Rec: COVID negative. Continue diltiazem CD for HR control and BP. On lisinopril (HTN; DM; CHF). F/u with financial quantitative analyst regarding renal dysfunction; will change Lasix to PO. F/u BUN/Cr, electrolytes, daily weight, Is and Os. F/u anemia w/u D/c telemetry.
[2020-04-23] MEDS: DOCUSATE SODIUM 100 MG CAPSULE (FP) PO SCH ×2 (10:37→23:08)
[2020-04-23] MEDS: FERROUS SO4 325 MG TABLET (FP) PO SCH ×2 (10:37→23:08)
[2020-04-23] MEDS: FUROSEMIDE 40 MG/4 ML INJECTABLE VIAL IVPUSH SCH (10:38)
[2020-04-23] MEDS: LISINOPRIL 5 MG TABLET (FP) PO SCH (10:38)
--- NOTE | 2020-04-23 14:38 | PN ---
Teaching Attending Note Name of Resident: Flash Rivero ATTENDING PHYSICIAN STATEMENT I saw and evaluated the patient. I reviewed the resident's note and discussed the case with the resident. I agree with the resident's findings and plan as documented. SUBJECTIVE: Feeling better, SOB resolved, LE edema much improved. No cough/sputum/fever. OBJECTIVE: Afebrile, Hemodynamically Stable. Last Vital Signs Temp Pulse Resp BP Pulse Ox 98.2 F 89 20 144/73 94 L 04/23/20 14:32 04/23/20 14:32 04/23/20 14:32 04/23/20 14:32 04/23/20 09:00 Heart - S1, S2, RRR Lungs - good air entry bilaterally. Abdomen - soft, non-tender. Bowel Sounds normal. Extremities - Mild edema, venous stasis skin changes. Neuro - AAO x 3. Tone/Power normal. - scrotal edema much improved Laboratory Results - last 24 hr 04/23/20 04/23/20 04/23/20 05:37 05:51 05:51 WBC 9.6 RBC 3.53 L Hgb 10.8 L Hct 32.2 L MCV 91.0 MCH 30.5 MCHC 33.5 RDW 15.3 Plt Count 284 MPV 8.9 Sodium 143 Potassium 4.3 Chloride 110 H Carbon Dioxide 25 Anion Gap 8 BUN 56.2 H Creatinine 2.0 H Est GFR (CKD-EPI)AfAm 40.54 Est GFR (CKD-EPI)NonAf 34.98 POC Glucometer 126 Random Glucose 118 H Calcium 9.1 Phosphorus 3.9 Magnesium 2.0 Total Bilirubin 1.4 H AST 49 H ALT 64 H Alkaline Phosphatase 178 H Total Protein 6.9 Albumin 3.6 04/23/20 12:52 WBC RBC Hgb Hct MCV MCH MCHC RDW Plt Count MPV Sodium Potassium Chloride Carbon Dioxide Anion Gap BUN Creatinine Est GFR (CKD-EPI)AfAm Est GFR (CKD-EPI)NonAf POC Glucometer 195 Random Glucose Calcium Phosphorus Magnesium Total Bilirubin AST ALT Alkaline Phosphatase Total Protein Albumin Current Medications Generic Name Dose Route Start Last Admin Trade Name Freq PRN Reason Stop Dose Admin Atorvastatin Calcium 10 mg 04/20/20 22:00 04/22/20 21:50 Lipitor - PO 10 mg HS [facility] Administration Diltiazem HCl 180 mg 04/21/20 10:00 04/23/20 10:37 Cardizem Cd - PO 180 mg DAILY [facility] Administration Docusate Sodium 100 mg 04/21/20 22:00 04/23/20 10:37 Colace - PO 100 mg BID [facility] Administration Ferrous Sulfate 325 mg 04/21/20 22:00 04/23/20 10:37 Feosol - PO 325 mg BID [facility] Administration Furosemide 40 mg 04/24/20 06:00 Lasix - PO BID@0600,1400 [facility] Heparin Sodium (Porcine) 5,000 unit 04/20/20 22:00 04/23/20 13:45 Heparin - SQ 5,000 unit TID [facility] Administration Insulin Aspart 1 vial 04/20/20 16:30 04/23/20 12:56 Novolog Vial Sliding Scale - SQ 2 units ACHS [facility] Administration Protocol Latanoprost 1 drop 04/22/20 22:00 04/22/20 22:14 Xalatan 0.005% Eye Drops - OU 1 drop HS [facility] Administration Lisinopril 5 mg 04/22/20 13:41 04/23/20 10:38 Prinivil PO 5 mg DAILY [facility] Administration Home Medications Medication Instructions Recorded Latanoprost 0.005% Eye Drops 1 drop HS 11/09/16 [Xalatan 0.005% Eye Drops -] Atorvastatin Ca [Lipitor] 10 mg PO HS #60 tablet 11/01/19 Diltiazem Cd [Cardizem Cd -] 180 mg PO DAILY #60 cap.cd.24h 11/01/19 Lisinopril [Prinivil] 2.5 mg PO DAILY #60 tablet 11/01/19 metFORMIN HCL [Metformin HCl] 500 mg PO BID #60 tablet 11/01/19 Docusate Sodium [Colace -] 100 mg PO BID #60 capsule 04/23/20 Ferrous Sulfate [Feosol] 325 mg PO BID #60 tab 04/23/20 Furosemide [Lasix] 60 mg PO DAILY #14 tablet 04/23/20 ASSESSMENT AND PLAN: 59 year old male with history of DM 2, HTN, HLD, Chronic Diastolic CHF (Echo 11/13 EF 55-60%), presents with SOB, worse on exertion, scrotal swelling, and worsening LE edema with orthopnea. 1. Acute on Chronic Diastolic CHF IV Lasix diuresis ongoing. Monitor I/Os, Daily weights, renal function Elevated TropI, chronic, flat. Negative MIBI 11/13. Evaluated by Cardiology - transitioned to PO Lasix Medically stable for discharge on increased Lasix dose 60mg daily with Cardiology follow up next week with repeat labwork. 2. CKD 3 - Stable, will monitor. Proteinuria - Lisinopril dose increased to 5 mg by Nephrology 3. Normocytic Anemia, etiology likely multifactorial. Iron 45/Iron Sat 14% B12 663/Folate 21 Can supplement Iron Further work-up as out-patient. 4. DM 2 - Metformin held. Maintain on Novolog sliding scale. 5. HTN - Continue Lisinopril, Cardizem. 6. HLD - continue Atorvastatin. Mild bump in Transaminases - will do Abdominal US prior to discharge. 7. Hx PSVT - continue Diltiazem 8. Persistent R basilar infiltrate on CXR - no infective symptoms. For out- patient CT and Pulmonary referral. DVT Px - Heparin SQ Medically optimized for discharge on Lasix 60mg with Cardiology out-patient follow up next week with repeat labs.
--- NOTE | 2020-04-23 14:42 | PN ---
Progress Note, Physician History of Present Illness: Pt seen and examined at bedside. He is awake and alert. he denies shortness of breath. He feels that his edema is improving. - Current Medication List Current Medications: Active Medications Atorvastatin Calcium (Lipitor -) 10 mg PO HS [facility] Last Admin: 04/22/20 21:50 Dose: 10 mg Documented by: Diltiazem HCl (Cardizem Cd -) 180 mg PO DAILY [facility] Last Admin: 04/23/20 10:37 Dose: 180 mg Documented by: Docusate Sodium (Colace -) 100 mg PO BID [facility] Last Admin: 04/23/20 10:37 Dose: 100 mg Documented by: Ferrous Sulfate (Feosol -) 325 mg PO BID [facility] Last Admin: 04/23/20 10:37 Dose: 325 mg Documented by: Furosemide (Lasix -) 40 mg PO BID@0600,1400 [facility] Heparin Sodium (Porcine) (Heparin -) 5,000 unit SQ TID [facility] Last Admin: 04/23/20 13:45 Dose: 5,000 unit Documented by: Insulin Aspart (Novolog Vial Sliding Scale -) 1 vial SQ ACHS [facility]; Protocol Last Admin: 04/23/20 12:56 Dose: 2 units Documented by: Latanoprost (Xalatan 0.005% Eye Drops -) 1 drop OU [facility] Last Admin: 04/22/20 22:14 Dose: 1 drop Documented by: Lisinopril (Prinivil) 5 mg PO DAILY [facility] Last Admin: 04/23/20 10:38 Dose: 5 mg Documented by: - Objective Vital Signs: Vital Signs Temperature 98.2 F 04/23/20 14:32 Pulse Rate 89 04/23/20 14:32 Respiratory Rate 20 04/23/20 14:32 Blood Pressure 144/73 04/23/20 14:32 O2 Sat by Pulse Oximetry (%) 94 L 04/23/20 09:00 Constitutional: Yes: Calm Eyes: Yes: Conjunctiva Clear HENT: Yes: Atraumatic Neck: Yes: Supple Cardiovascular: Yes: S1, S2 Respiratory: Yes: CTA Bilaterally Gastrointestinal: Yes: Normal Bowel Sounds, Soft Genitourinary: Yes: WNL Musculoskeletal: Yes: WNL Edema: Yes Edema: LLE: 1+, RLE: 1+ Neurological: Yes: Oriented Psychiatric: Yes: Oriented Labs: CBC, BMP 04/23/20 05:51 04/23/20 05:51 Assessment/Plan Current Medications Generic Name Dose Route Start Last Admin Trade Name Lexa PRN Reason Stop Dose Admin Atorvastatin Calcium 10 mg 04/20/20 22:00 04/22/20 21:50 Lipitor - PO 10 mg HS [facility] Administration Diltiazem HCl 180 mg 04/21/20 10:00 04/23/20 10:37 Cardizem Cd - PO 180 mg DAILY [facility] Administration Docusate Sodium 100 mg 04/21/20 22:00 04/23/20 10:37 Colace - PO 100 mg BID [facility] Administration Ferrous Sulfate 325 mg 04/21/20 22:00 04/23/20 10:37 Feosol - PO 325 mg BID [facility] Administration Furosemide 40 mg 04/24/20 06:00 Lasix - PO BID@0600,1400 [facility] Heparin Sodium (Porcine) 5,000 unit 04/20/20 22:00 04/23/20 13:45 Heparin - SQ 5,000 unit TID [facility] Administration Insulin Aspart 1 vial 04/20/20 16:30 04/23/20 12:56 Novolog Vial Sliding Scale - SQ 2 units ACHS [facility] Administration Protocol Latanoprost 1 drop 04/22/20 22:00 04/22/20 22:14 Xalatan 0.005% Eye Drops - OU 1 drop HS [facility] Administration Lisinopril 5 mg 04/22/20 13:41 04/23/20 10:38 Prinivil PO 5 mg DAILY [facility] Administration Laboratory Tests 04/20/20 21:50 Protein/Creatinin Ratio 1.8 Impression 1. CKD 2. proteinuria 3. HTN 4. DM 5. CHF diastolic 6. hld Plan - cont with lasix - agree with transitioning to PO - will need outpt follow up after discharge - cont luz, lisinopril increased to 5 mg, will cont to titrate gradually - renal function stable - discussed low sodium diet
--- NOTE | 2020-04-23 17:35 | PN ---
Physical Exam: SUBJECTIVE: Patient seen and examined. Denies any complaints, no fever/chills, SOB. Improved LE edema and scrotal edema. OBJECTIVE: Vital Signs Period Temp Pulse Resp BP Sys/Saucedo Pulse Ox Last 24 Hr 97.4 F-98.5 F 78-89 20-20 122-147/68-92 94-98 GENERAL: The patient is awake, alert, and fully oriented, in no acute distress. HEAD: Normal with no signs of trauma. EYES: PERRL, extraocular movements intact, sclera anicteric, conjunctiva clear. No ptosis. ENT: Ears normal, nares patent, oropharynx clear without exudates, moist mucous membranes. NECK: Trachea midline, full range of motion, supple. LUNGS: Breath sounds equal, clear to auscultation bilaterally, no wheezes, no crackles, no accessory muscle use. HEART: Regular rate and rhythm, S1, S2 without murmur, rub or gallop. ABDOMEN: Soft, nontender, nondistended, normoactive bowel sounds, no guarding, no rebound, no hepatosplenomegaly, no masses. EXTREMITIES: 2+ pulses, warm, well-perfused, no edema. NEUROLOGICAL: Cranial nerves II through XII grossly intact. Normal speech, gait not observed. PSYCH: Normal mood, normal affect. SKIN: Warm, dry, normal turgor, no rashes or lesions noted Laboratory Results - last 24 hr 04/23/20 04/23/20 04/23/20 05:37 05:51 05:51 WBC 9.6 RBC 3.53 L Hgb 10.8 L Hct 32.2 L MCV 91.0 MCH 30.5 MCHC 33.5 RDW 15.3 Plt Count 284 MPV 8.9 Sodium 143 Potassium 4.3 Chloride 110 H Carbon Dioxide 25 Anion Gap 8 BUN 56.2 H Creatinine 2.0 H Est GFR (CKD-EPI)AfAm 40.54 Est GFR (CKD-EPI)NonAf 34.98 POC Glucometer 126 Random Glucose 118 H Calcium 9.1 Phosphorus 3.9 Magnesium 2.0 Total Bilirubin 1.4 H AST 49 H ALT 64 H Alkaline Phosphatase 178 H Total Protein 6.9 Albumin 3.6 04/23/20 04/23/20 12:52 17:02 WBC RBC Hgb Hct MCV MCH MCHC RDW Plt Count MPV Sodium Potassium Chloride Carbon Dioxide Anion Gap BUN Creatinine Est GFR (CKD-EPI)AfAm Est GFR (CKD-EPI)NonAf POC Glucometer 195 147 Random Glucose Calcium Phosphorus Magnesium Total Bilirubin AST ALT Alkaline Phosphatase Total Protein Albumin Active Medications Generic Name Dose Route Start Last Admin Trade Name Walterq PRN Reason Stop Dose Admin Atorvastatin Calcium 10 mg 04/20/20 22:00 04/22/20 21:50 Lipitor - PO 10 mg HS [facility] Administration Diltiazem HCl 180 mg 04/21/20 10:00 04/23/20 10:37 Cardizem Cd - PO 180 mg DAILY [facility] Administration Docusate Sodium 100 mg 04/21/20 22:00 04/23/20 10:37 Colace - PO 100 mg BID [facility] Administration Ferrous Sulfate 325 mg 04/21/20 22:00 04/23/20 10:37 Feosol - PO 325 mg BID [facility] Administration Furosemide 40 mg 04/24/20 06:00 Lasix - PO BID@0600,1400 [facility] Heparin Sodium (Porcine) 5,000 unit 04/20/20 22:00 04/23/20 13:45 Heparin - SQ 5,000 unit TID [facility] Administration Insulin Aspart 1 vial 04/20/20 16:30 04/23/20 17:06 Novolog Vial Sliding Scale - SQ Not Given ACHS [facility] Protocol Latanoprost 1 drop 04/22/20 22:00 04/22/20 22:14 Xalatan 0.005% Eye Drops - OU 1 drop HS [facility] Administration Lisinopril 5 mg 04/22/20 13:41 04/23/20 10:38 Prinivil PO 5 mg DAILY [facility] Administration ASSESSMENT/PLAN: pt is a 59 year old male with PMHx of diastolic HF, HTN, HLD, DM2 presenting with SOB and worsening leg edema x5 days compliant on Lasix 40mg. Much improved. Acute on Chronic HFpEF -IV lasix 40mg daily continued -Monitor I & Os and daily weights -Continue to monitor scrotal and lower extremity edema -Last echo on 10/2019 with EF 55-60% -Going home on Lasix 60mg daily Transaminitis -AST/ALT 37/54 to 49/64 -Ultrasound showed hepatomegaly and fatty liver, bile sludge, R sided pleural effusion, trace pericholecystic fluid -f/u outpt CKD stage III -Cr 2.1, BUN 62.5 -Baseline creatinine 2 Normocytic anemia -H&H 11&33.4 -Iron 45, iron sat 14%, ferritin, B12 662, folate 21 -Can be likely due to multifactorial reason; follow up outpatient DM type 2 -Home metformin held -SSI and BGM monitoring HTN -Cardio and renal consulted -Continue IV lasix 40mg daily, Lisinopril 2.5mg PO daily, cardizem 180mg PO daily HLD -Continue home lipitor 10mg FEN: -No fluids -Monitor electrolytes -Sodium controlled diet Prophylaxis: Heparin 5000u TID Visit type - Emergency Visit Emergency Visit: Yes ED Registration Date: 04/20/20 Care time: The patient presented to the Emergency Department on the above date and was hospitalized for further evaluation of their emergent condition. - New Patient This patient is new to me today: No - Critical Care Critical Care patient: No ATTENDING PHYSICIAN STATEMENT I saw and evaluated the patient. I reviewed the resident's note and discussed the case with the resident. I agree with the resident's findings and plan as documented. SUBJECTIVE: OBJECTIVE: ASSESSMENT AND PLAN:
[2020-04-23] MEDS ORDERED: PT OWN MED DRAWER 7, Y5N ONE (22:58)
[2020-04-23] MEDS ORDERED: INSULIN (NOVOLOG) ASPART 100 UNITS/ML 10ML VIAL ONE (22:59)
[2020-04-23] MEDS: ATORVASTATIN CA 10 MG TABLET (FP) PO SCH (23:08)
[2020-04-23] MEDS: LATANOPROST 0.005% OPHTH SOLN 2.5ML BOTTLE OU SCH (23:09)
[2020-04-24] MEDS: INSULIN SLIDING SCALE (NOVOLOG) 1 VIAL SQ SCH ×2 (06:57→12:16)
[2020-04-24] MEDS: FUROSEMIDE 40 MG TABLET (FP) PO SCH ×2 (06:57→13:03)
[2020-04-24] MEDS: HEPARIN NA (PORCINE) 5,000 UNITS/ML 1ML VIAL SQ SCH ×2 (06:57→13:04)
[2020-04-24] MEDS: LISINOPRIL 5 MG TABLET (FP) PO SCH (09:23)
[2020-04-24] MEDS: DOCUSATE SODIUM 100 MG CAPSULE (FP) PO SCH (09:23)
[2020-04-24] MEDS: FERROUS SO4 325 MG TABLET (FP) PO SCH (09:23)
[2020-04-24 13:36] LABS: ALBUMIN 3.9 g/dl (3.4-5.0); BILIRUBIN,TOTAL 1.1 mg/dL (0.2-1); BLOOD UREA NITROGEN 50.5 mg/dL (7-18); CALCIUM 9.6 mg/dL (8.5-10.1); CREATININE 1.9 mg/dL (0.55-1.3); TOT PROT 7.7 g/dl (6.4-8.2)
--- NOTE | 2020-04-24 13:59 | DS ---
Physical Exam: SUBJECTIVE: Patient seen and examined, no acute events overnight. OBJECTIVE: Vital Signs Period Temp Pulse Resp BP Sys/Saucedo Pulse Ox Last 24 Hr 97.3 F-98.3 F 77-89 18-20 113-144/67-77 95-95 PHYSICAL EXAM GENERAL: The patient is awake, alert, and fully oriented, in no acute distress. HEAD: Normal with no signs of trauma. EYES: PERRL, extraocular movements intact, ENT: moist mucous membranes. LUNGS: Breath sounds equal, clear to auscultation bilaterally, no wheezes, no crackles, no accessory muscle use. HEART: Regular rate and rhythm, S1, S2 without murmur, rub or gallop. ABDOMEN: Soft, nontender, nondistended, normoactive bowel sounds, EXTREMITIES: no edema. SKIN: Warm, dry, normal turgor, no rashes or lesions noted. LABS Laboratory Results - last 24 hr 04/23/20 04/23/20 04/24/20 17:02 22:54 06:30 Sodium Potassium Chloride Carbon Dioxide Anion Gap BUN Creatinine Est GFR (CKD-EPI)AfAm Est GFR (CKD-EPI)NonAf POC Glucometer 147 178 114 Random Glucose Calcium Total Bilirubin AST ALT Alkaline Phosphatase Total Protein Albumin 04/24/20 04/24/20 11:22 12:45 Sodium 143 Potassium 4.0 Chloride 107 Carbon Dioxide 28 Anion Gap 8 BUN 50.5 H Creatinine 1.9 H Est GFR (CKD-EPI)AfAm 43.14 Est GFR (CKD-EPI)NonAf 37.22 POC Glucometer 160 Random Glucose 152 H Calcium 9.6 Total Bilirubin 1.1 H AST 50 H ALT 77 H Alkaline Phosphatase 203 H Total Protein 7.7 Albumin 3.9 HOSPITAL COURSE: Date of Admission:04/20/20 Patient is a 59 y/o male with a history of DM, HTN, HLD, HFpEF, who was admitted for a CHF exacerbation. Patient was treated with IV lasix and monitored in the hospital. Patient became euvolemic and symptoms improved. Patient was found to have normocytic anemia, iron supplementation was started. Patient had a CXR done which showed a persistent R basilar infiltrate. Asked to f/u as an outpatient for further imaging. Mild transaminits with ultrasound showing hepatomegaly, patient will f/u as an outpatient. Patient stable for discharge. Echo 11/13 EF 55-60% Negative MIBI 3/20 CXR: persistent R basilar infiltrate. Ultrasound showed hepatomegaly and fatty liver, bile sludge, R sided pleural effusion, trace pericholecystic fluid Date of Discharge: 04/24/20 Minutes to complete discharge: 35 Discharge Summary Problems reviewed: Yes Reason For Visit: DIASTOLIC CHF Current Active Problems CHF (congestive heart failure) (Acute) Condition: Improved - Instructions Diet, Activity, Other Instructions: You came to the hospital for shortness of breath and leg swelling. This was due to an exacerbation of your congestive heart failure. You had cardiac monitoring and were treated with lasix. You are now stable to go home. Your blood work shows that you are anemic (low levels of red blood cells). You will need further workup by your primary physician to monitor your low levels of hemoglobin. Your chest xray shows that you have an infiltate (abnormal imaging finding). Please discuss this with your primary care physician and discuss any further imaging needed for evaluation of this process. You had blood work that showed some minor damage to your liver cells. You got an ultrasound of your liver and kidney which showed an enlarged and fatty liver. Follow up with your primary care physician to discuss this finding. You will need repeat lab work in one week. Please take Lasix 60 mg ( 3 tabs of 20 mg) daily to treat your congestive heart failure. Please follow up with your hazardous substances engineer in 1 week to further manage your lasix Please continue to take Ferrous sulfate 325 MG twice a day, to treat your low levels of red blood cells Please continue to take colace twice a day, to help with constipation Please continue your additional home medications as prescribed. Please follow up with your primary care physician in 1 week to further manage your healthcare. You will need repeat blood count and metabolic panel. Please follow up with your hazardous substances engineer, Dr. Cortez, in 1 week to further manage your heart and lasix medication. Please follow up with your independent freight agent, Dr. Mckeon. you may need a repeat CT scan. If you have new, worsening, or concerning symptoms please call 911 or return to the ED Referrals: Todd Mckeon MD [Staff Physician] - 2 Weeks (follow up of persistent infiltrate on CXR - no infective symptoms. May likely require CT Chest. ) Kenyon Ramirez MD [Primary Care Provider] - Perry Cortez MD [Staff Physician] - Disposition: HOME - Home Medications Comprehensive Discharge Medication List: Ambulatory Orders Latanoprost 0.005% Eye Drops [Xalatan 0.005% Eye Drops -] 1 drop HS 11/09/16 Atorvastatin Ca [Lipitor] 10 mg PO HS #60 tablet 11/01/19 Diltiazem Cd [Cardizem Cd -] 180 mg PO DAILY #60 cap.cd.24h 11/01/19 Lisinopril [Prinivil] 2.5 mg PO DAILY #60 tablet 11/01/19 metFORMIN HCL [Metformin HCl] 500 mg PO BID #60 tablet 11/01/19 Docusate Sodium [Colace -] 100 mg PO BID #60 capsule 04/23/20 Ferrous Sulfate [Feosol] 325 mg PO BID #60 tab 04/23/20 Furosemide [Lasix] 60 mg PO DAILY #42 tablet 04/24/20 This patient is new to me today: Yes Date on this admission: 04/24/20 Emergency Visit: No Critical Care patient: No - Discharge Referral Referred to [facility] No ATTENDING PHYSICIAN STATEMENT I saw and evaluated the patient. I reviewed the resident's note and discussed the case with the resident. I agree with the resident's findings and plan as documented. SUBJECTIVE: OBJECTIVE: ASSESSMENT AND PLAN:
--- NOTE | 2020-04-24 14:14 | PN ---
Teaching Attending Note Name of Resident: Kimberlyn Mcclain ATTENDING PHYSICIAN STATEMENT I saw and evaluated the patient. I reviewed the resident's note and discussed the case with the resident. I agree with the resident's findings and plan as documented. SUBJECTIVE: Feeling better, SOB resolved, LE edema much improved. No cough/sputum/fever. OBJECTIVE: Afebrile, Hemodynamically Stable. Last Vital Signs Temp Pulse Resp BP Pulse Ox 98.3 F 85 20 120/74 95 % RA 04/24/20 09:08 04/24/20 09:08 04/24/20 09:08 04/24/20 09:08 04/24/20 09:08 Heart - S1, S2, RRR Lungs - good air entry bilaterally. Abdomen - soft, non-tender. Bowel Sounds normal. Extremities - Mild edema, venous stasis skin changes. Neuro - AAO x 3. Tone/Power normal. - scrotal edema much improved Laboratory Results - last 24 hr 04/23/20 04/23/20 04/24/20 17:02 22:54 06:30 Sodium Potassium Chloride Carbon Dioxide Anion Gap BUN Creatinine Est GFR (CKD-EPI)AfAm Est GFR (CKD-EPI)NonAf POC Glucometer 147 178 114 Random Glucose Calcium Total Bilirubin AST ALT Alkaline Phosphatase Total Protein Albumin 04/24/20 04/24/20 11:22 12:45 Sodium 143 Potassium 4.0 Chloride 107 Carbon Dioxide 28 Anion Gap 8 BUN 50.5 H Creatinine 1.9 H Est GFR (CKD-EPI)AfAm 43.14 Est GFR (CKD-EPI)NonAf 37.22 POC Glucometer 160 Random Glucose 152 H Calcium 9.6 Total Bilirubin 1.1 H AST 50 H ALT 77 H Alkaline Phosphatase 203 H Total Protein 7.7 Albumin 3.9 Current Medications Generic Name Dose Route Start Last Admin Trade Name Freq PRN Reason Stop Dose Admin Atorvastatin Calcium 10 mg 04/20/20 22:00 04/23/20 23:08 Lipitor - PO 10 mg HS [facility] Administration Diltiazem HCl 180 mg 04/21/20 10:00 04/24/20 09:23 Cardizem Cd - PO 180 mg DAILY [facility] Administration Docusate Sodium 100 mg 04/21/20 22:00 04/24/20 09:23 Colace - PO 100 mg BID [facility] Administration Ferrous Sulfate 325 mg 04/21/20 22:00 04/24/20 09:23 Feosol - PO 325 mg BID [facility] Administration Furosemide 40 mg 04/24/20 06:00 04/24/20 13:03 Lasix - PO 40 mg BID@0600,1400 [facility] Administration Heparin Sodium (Porcine) 5,000 unit 04/20/20 22:00 04/24/20 13:04 Heparin - SQ 5,000 unit TID [facility] Administration Insulin Aspart 1 vial 04/20/20 16:30 04/24/20 12:16 Novolog Vial Sliding Scale - SQ 2 units ACHS [facility] Administration Protocol Latanoprost 1 drop 04/22/20 22:00 04/23/20 23:09 Xalatan 0.005% Eye Drops - OU 1 drop HS [facility] Administration Lisinopril 5 mg 04/22/20 13:41 04/24/20 09:23 Prinivil PO 5 mg DAILY [facility] Administration Home Medications Medication Instructions Recorded Latanoprost 0.005% Eye Drops 1 drop HS 11/09/16 [Xalatan 0.005% Eye Drops -] Atorvastatin Ca [Lipitor] 10 mg PO HS #60 tablet 11/01/19 Diltiazem Cd [Cardizem Cd -] 180 mg PO DAILY #60 cap.cd.24h 11/01/19 metFORMIN HCL [Metformin HCl] 500 mg PO BID #60 tablet 11/01/19 Docusate Sodium [Colace -] 100 mg PO BID #60 capsule 04/23/20 Ferrous Sulfate [Feosol] 325 mg PO BID #60 tab 04/23/20 Furosemide [Lasix] 60 mg PO DAILY #42 tablet 04/24/20 Lisinopril 5 mg PO DAILY #30 tablet 04/24/20 ASSESSMENT AND PLAN: 59 year old male with history of DM 2, HTN, HLD, Chronic Diastolic CHF (Echo 11/13 EF 55-60%), presents with SOB, worse on exertion, scrotal swelling, and worsening LE edema with orthopnea. 1. Acute on Chronic Diastolic CHF IV Lasix diuresis transitioned to PO. Renal function stable Elevated TropI, chronic, flat. Negative MIBI 11/13. Evaluated by Cardiology - transitioned to PO Lasix Medically stable for discharge on increased Lasix dose 60mg daily with Cardiolog y follow up next week with repeat labwork. 2. CKD 3 - Stable, will monitor. Proteinuria - Lisinopril dose increased to 5 mg by Nephrology 3. Normocytic Anemia, etiology likely multifactorial. Iron 45/Iron Sat 14% B12 663/Folate 21 Will supplement Iron Further work-up as out-patient. 4. DM 2 - Metformin to resume on discharge 5. HTN - Continue Lisinopril, Cardizem. 6. HLD - continued on Atorvastatin. Mild bump in Transaminases - Abdominal US: Hepatomegaly/Fatty liver/some pericholecystic fluid. No clinical evidence of cholecystitis. Repeat transaminases as out-patient. 7. Hx PSVT - continue Diltiazem 8. Persistent R basilar infiltrate on CXR - no infective symptoms. For out- patient CT and Pulmonary referral. DVT Px - Heparin SQ Medically optimized for discharge on Lasix 60mg with Cardiology out-patient follow up next week with repeat labs.
[2020-04-24 15:14] VITALS: BP 127/74; PULSE 87; TEMP 98
== END 2020-04-24 16:11 | disposition home or self-care (01) | DRG 194 ==
LOC: JER 10:34 → JERBED 14:47 → J4S 04-21 01:05 → J4W 04-22 23:45
PROVIDERS: ADMIT Internal Medicine
DX: I13.0 Hypertensive heart and chronic kidney disease with heart failure and stage 1 through stage 4 chronic kidney disease, or unspecified chronic kidney disease (principal); I50.33 Acute on chronic diastolic (congestive) heart failure; N17.9 Acute kidney failure, unspecified; E11.22 Type 2 diabetes mellitus with diabetic chronic kidney disease; I27.20 Pulmonary hypertension, unspecified; R16.0 Hepatomegaly, not elsewhere classified; I44.0 Atrioventricular block, first degree; P19.9 Metabolic acidemia in newborn, unspecified; D63.8 Anemia in other chronic diseases classified elsewhere; N40.0 Benign prostatic hyperplasia without lower urinary tract symptoms; E66.9 Obesity, unspecified; Z68.29 Body mass index [BMI] 29.0-29.9, adult; E78.5 Hyperlipidemia, unspecified; Z79.84 Long term (current) use of oral hypoglycemic drugs; N18.3 Chronic kidney disease, stage 3 (moderate); R74.0 Nonspecific elevation of levels of transaminase and lactic acid dehydrogenase [LDH]; K76.0 Fatty (change of) liver, not elsewhere classified
CPT/HCPCS: 36415; 71046-TC-FY; 76705-TC; 80053; 82550; 82553; 82565; 82607; 82728; 82746; 82962; 83540; 83550; 83735; 83880; 84100; 84156; 84300; 84484; 84540; 85025; 85027; 93005; 93010; 97116-GP; 97161-GP; 99285-25; J1644; U0003